=== PATIENT | female | born 1980 | race Caucasian/White ===

== ENCOUNTER 2022-07-19 07:59 | Outpatient (CLI) | payer BC, SELFPAY ==
--- NOTE | 2022-07-19 08:15 | CRLHL7_ITS ---
For Patients: As a result of the Cures Act, medical imaging exams and procedure reports are released immediately into your electronic medical record. You may view this report before your referring provider. If you have questions, please contact your health care provider. ULTRASOUND-GUIDED LEFT BREAST BIOPSY AND CLIP PLACEMENT INDICATION: LEFT breast mass upper outer quadrant near the axilla. Ultrasound-guided biopsy for diagnostic purposes. PROCEDURE: Informed consent was obtained. Benefits and risks were discussed. The patient agreed to proceed. Risks included pain, bleeding, infection and the possibility of an unsuccessful or nondiagnostic procedure. Clip placement was also discussed. Patient agreed to proceed. [place] protocol was followed. TIME-OUT conducted just prior to starting procedure confirmed patient identity, site/side, procedure, patient position, and availability of correct equipment. Pause for cause was performed. At the 2 o`clock position of the LEFT breast 8 cm from the nipple there is a lobulated hypoechoic solid mass measuring 1.6 x 1.8 x 2 cm. There is blood flow within this mass. Utilizing sterile technique and 1 percent lidocaine for local anesthetic, an 18-gauge Temno biopsy needle was utilized. Five passes were obtained. Each time the pass was clearly within the breast mass itself. Five samples were obtained and sent to the lab for analysis. A clip was subsequently placed. A post clip mammogram will be performed. IMPRESSION: Technically successful ultrasound-guided biopsy of an upper outer quadrant LEFT breast mass 2 o`clock position 8 cm from the nipple. ACR not applicable Dictated by: Raul Cabrera MD @07/19/2022 9:57:10 AM aristeo/Dictated by: Raul Cabrera MD @ 07/19/2022 9:57:00 AM ADDENDUM: Pathology consistent with grade III/III invasive ductal carcinoma, triple negative. This is concordant. Appropriate action recommended. Dictated by: Abel Quick MD @07/24/2022 9:22:04 AM / CRL:[email or web address] (Electronically Signed)
--- NOTE | 2022-07-19 09:00 | CRLHL7_ITS ---
For Patients: As a result of the Cures Act, medical imaging exams and procedure reports are released immediately into your electronic medical record. You may view this report before your referring provider. If you have questions, please contact your health care provider. POST-BIOPSY LEFT MAMMOGRAM FOR CLIP PLACEMENT INDICATION: Follow-up LEFT breast biopsy. Clip placement. TECHNIQUE: CC, MLO, and ML views of the LEFT breast were obtained. FINDINGS: The biopsy clip is identified within the superior lateral LEFT breast mass. Intact saline implant. IMPRESSION: Biopsy clip as described. ACR not applicable Dictated by: Raul Cabrera MD @07/19/2022 9:53:43 AM jj/Dictated by: Raul Cabrera MD @ 07/19/2022 9:53:00 AM (Electronically Signed)
== END 2022-07-19 08:00 | disposition home or self-care (01) ==
PROVIDERS: PCP Student in an Organized Health Care Education/Training Program; Visit Provider Student in an Organized Health Care Education/Training Program
DX: N63.21 Unspecified lump in the left breast, upper outer quadrant (principal); C50.912 Malignant neoplasm of unspecified site of left female breast
CPT/HCPCS: 19083; 77065; 88305; 88341; 88342; 88360; 88361; A4648; A4649

== ENCOUNTER 2022-07-27 09:48 | Outpatient (CLI) | payer BC, SELFPAY ==
--- NOTE | 2022-07-27 10:00 | CRLHL7_ITS ---
For Patients: As a result of the 21st Century Cures Act, medical imaging exams and procedure reports are released immediately into your electronic medical record. You may view this report before your referring provider. If you have questions, please contact your health care provider. BILATERAL BREAST MRI WITHOUT AND WITH GADOLINIUM, 07/27/2022 CLINICAL HISTORY: 41-year-old female with recently diagnosed LEFT breast cancer. INDICATION FOR BREAST MRI: Staging of newly diagnosed breast cancer and screening of contralateral breast. Regional lymph nodes will also be assessed. COMPARISON STUDIES: Mammogram and ultrasound 07/13/2022, ultrasound-guided biopsy and postprocedure mammogram 07/19/2022. CONTRAST: 15 cc of dotarem. TECHNIQUE: The patient was positioned prone using a breast coil. Multiple imaging sequences were obtained using 1-1.5 mm thick slices with no gap. The image sequences include T2-weighted STIR in the axial plane, T1-weighted nonfat-saturated gradient echo in the axial plane, pre- and post-contrast T1-weighted FLASH 3D with fat suppression in the axial plane, and T1-weighted FLASH high resolution 3D with fat suppression in the sagittal plane. Image post-processing was performed on a [employer] workstation. Complex 3D rendering including maximum intensity projections (MIPS) and volumetric renderings were obtained to optimize visualization of the extent of pathology and relationship to the nipple, skin, and chest wall. This aids in determining feasibility of breast conservation surgery. Subtraction, multiplanar reconstruction, mean curve determination, and angiogenesis mapping were also performed. The study was technically adequate. FINDINGS: Amount of Fibroglandular Tissue: Heterogeneous fibroglandular tissue. Breast Background Enhancement: Mild. RIGHT Breast: No suspicious areas of enhancement. Implant in place. LEFT Breast: At 2 o`clock, posterior depth, approximately 5 cm from the nipple there is an oval mass with circumscribed margins and heterogeneous internal enhancement measuring 2.6 x 2.3 x 2.2 cm. This demonstrates fast initial enhancement with washout. Implant in place. Lymph Nodes: Posterior to this mass within the axilla there are multiple abnormal rounded level 1 lymph nodes, the largest of which measures 1.2 x 1.0 cm. No RIGHT axillary adenopathy. No abnormal internal mammary lymph nodes. IMPRESSIONS AND RECOMMENDATIONS: LEFT breast: 1. Mass at 2 o`clock, posterior depth, measuring up to 2.6 cm on MRI is consistent with the site of biopsy-proven malignancy. 2. Abnormal LEFT axillary lymph nodes. Recommend LEFT axillary ultrasound and ultrasound-guided biopsy. RIGHT breast: Negative, there is no MRI evidence of contralateral malignancy. BI-RADS Category 4: Suspicious Dictated by Gabriella Finley MD @ 08/01/2022 8:32:13 AM JR/Dictated by: Gabriella Finley MD @ 08/01/2022 8:32:00 AM (Electronically Signed)
== END 2022-07-27 09:49 | disposition home or self-care (01) ==
PROVIDERS: PCP Student in an Organized Health Care Education/Training Program; Visit Provider Surgery
DX: C50.912 Malignant neoplasm of unspecified site of left female breast (principal)
CPT/HCPCS: 77049; A9575

== ENCOUNTER 2022-08-04 10:01 | Outpatient (CLI) | payer BC, SELFPAY ==
--- NOTE | 2022-08-04 10:15 | CRLHL7_ITS ---
For Patients: As a result of the Century Cures Act, medical imaging exams and procedure reports are released immediately into your electronic medical record. You may view this report before your referring provider. If you have questions, please contact your health care provider. CLINICAL HISTORY: : Left axillary adenopathy on recent breast MRI. History of left breast cancer. COMPARISON: Breast MRI 07/27/2022 TECHNIQUE: Real-time ultrasound imaging of left axilla with imaging documentation. Scanning was performed by both the technologist and the radiologist. FINDINGS: Enlarged left axillary lymph node is present with near complete absence of the fatty hilum. This lymph node measures 1.4 x 0.8 x 1.2 cm. This is located 1.1 cm from the primary malignancy. IMPRESSION: Suspicious left axillary lymph node measuring 1.4 cm. RECOMMENDATIONS: Ultrasound-guided core needle biopsy will be performed subsequently. Results and recommendations were discussed with the patient at the time of the exam. BI-RADS: 6. Known malignancy. Dictated by Abel Quick MD @ 08/04/2022 11:30:15 AM (Electronically Signed)
--- NOTE | 2022-08-04 11:15 | CRLHL7_ITS ---
For Patients: As a result of the Century Cures Act, medical imaging exams and procedure reports are released immediately into your electronic medical record. You may view this report before your referring provider. If you have questions, please contact your health care provider. ULTRASOUND-GUIDED LEFT AXILLARY LYMPH NODE BIOPSY CLINICAL HISTORY: ABNORMAL LEFT AXILLARY LYMPH NODE. BIOPSY PROVEN LEFT BREAST MALIGNANCY. COMPARISON STUDIES: Breast MRI 07/27/2022 TECHNIQUE: Real-time ultrasound with image documentation was used for targeting the left axillary lymph node lesion. Core biopsy specimens were obtained using an automated gun with a 18-gauge biopsy needle. CONSENT and TIME OUT: The procedure, risks, and alternatives were explained to the patient and a consent was signed. Mobile Protocol was followed including pre-procedure verification that relevant information/documentation was available, reviewed and properly matched to the patient; consent accurate and complete; and equipment and supplies available. Time Out was conducted just prior to starting procedure to verify the four required elements: patient identity, correct side/site marked (if applicable), procedure, relevant images/results properly labeled and displayed (if applicable). PROCEDURE: The patient was positioned supine on the ultrasound table. The left axilla was prepped with ChloraPrep. 8 cc 1 percent lidocaine used for local anesthesia. Core samples were obtained. A sterile metal biopsy clip was placed percutaneously to ruddy the lesion position within the left axilla. The specimens were placed in 10% formalin and sent to the pathology department. Pressure was held on the biopsy site until all bleeding subsided. The skin incision was closed with Steri-Strips. An ice pack was positioned over the biopsy site. Post-biopsy instructions were reviewed with the patient, and a written copy was given to her. LATERALITY: Left axilla LESION: Enlarged hypoechoic lymph node measuring 1.4 x 0.8 x 1.2 cm in the left axilla. SUSPICION FOR MALIGNANCY: High NUMBER OF SAMPLES: 6 BIOPSY CLIP SHAPE: HydroMARK coil PROXIMITY OF CLIP TO TARGET: Within the lesion IMPRESSION: Ultrasound-guided left axillary lymph biopsy. When the pathology report is available, an addendum to this report will be made. ACR not applicable Dictated by Abel Quick MD @ 08/04/2022 11:32:57 AM ADDENDUM: Pathology consistent with invasive ductal carcinoma, grade III/III, morphologically similar to the primary breast carcinoma previously biopsied. This is concordant. Appropriate action recommended. Abel Quick M.D. Diagnostic Radiologist [email or web address] D& Transcribed: 3:21 p.m. (Electronically Signed)
== END 2022-08-04 10:02 | disposition home or self-care (01) ==
LOC: US 10:02
PROVIDERS: PCP Student in an Organized Health Care Education/Training Program; Visit Provider Surgery
DX: C50.412 Malignant neoplasm of upper-outer quadrant of left female breast (principal); Z17.1 Estrogen receptor negative status [ER-]
CPT/HCPCS: 38505; 76882; 76942; 88305; A4648; A4649

== ENCOUNTER 2022-10-27 09:54 | Outpatient (CLI) | payer BC, SELFPAY | END 2022-10-27 09:55 | disposition home or self-care (01) | LOC: RAD 09:55 | PROVIDERS: PCP Student in an Organized Health Care Education/Training Program; Visit Provider Internal Medicine Hematology & Oncology | DX: Z51.11 Encounter for antineoplastic chemotherapy (principal) | CPT/HCPCS: 93306 ==

== ENCOUNTER 2023-01-01 16:03 | Outpatient (CLI) | payer BC, SELFPAY ==
--- NOTE | 2023-01-01 16:15 | CRLHL7_ITS ---
For Patients: As a result of the Century Cures Act, medical imaging exams and procedure reports are released immediately into your electronic medical record. You may view this report before your referring provider. If you have questions, please contact your health care provider. INDICATION: Breast cancer. Headaches. TECHNIQUE: Brain MRI with contrast. The following sequences were obtained: Sagittal T1 weighted sequence. DWI and ADC mapping sequences. Axial FLAIR and AMBAR T2 weighted sequences. Susceptibility weighted or GRE sequence. T1 weighted post-contrast sequence(s). 12.5 cc of Dotarem gadolinium based contrast agent was used. COMPARISON: None. FINDINGS: No evidence of acute ischemia. No evidence of acute or chronic intracranial blood products. No mass or pathologic intracranial enhancement. No intracranial signal abnormality. No hydrocephalus or extra-axial collections. The pituitary gland, parasellar structures and optic chiasm are normal. Posterior fossa is normal. All the major intracranial vascular structures demonstrate normal flow-related signal. The orbital contents are normal. No calvarial or skull base marrow signal abnormality. No obstructive sinus disease. No extracranial soft tissue findings. IMPRESSION: 1. No acute infarction or other acute intracranial pathology. 2. No evidence of intracranial metastatic disease. 3. No other significant findings. Dictated by Luigi Brennan MD @ 01/02/2023 10:59:27 AM (Electronically Signed)
== END 2023-01-01 16:04 | disposition home or self-care (01) ==
LOC: MRI 16:03
PROVIDERS: PCP Student in an Organized Health Care Education/Training Program; Visit Provider Internal Medicine Hematology & Oncology
DX: C50.912 Malignant neoplasm of unspecified site of left female breast (principal); R51.9 Headache, unspecified
CPT/HCPCS: 70553; A9575

== ENCOUNTER 2023-01-14 11:17 | Inpatient (IN) | payer BC, SELFPAY ==
[2023-01-14] VITALS (17 sets, daily range): BP systolic 81–101; BP diastolic 39–70; PULSE 71–88; RESP 14–18; TEMP 36.1–37.2; O2SAT 94–100; BMI 21.5
--- NOTE | 2023-01-14 11:43 | CRLHL7_ITS ---
For Patients: As a result of the Century Cures Act, medical imaging exams and procedure reports are released immediately into your electronic medical record. You may view this report before your referring provider. If you have questions, please contact your health care provider. Indication: Neutropenic fever. Breast cancer patient on chemotherapy Technique: PA and lateral (2) views of the chest. Comparison: None available Findings: Right chest port in place with tip in SVC. Normal heart size. Lungs and pleural spaces clear. No acute or aggressive osseous abnormality. Impression: Normal chest radiograph. Dictated by Cooper Hardin MD @ 01/14/2023 1:05:13 PM (Electronically Signed)
--- NOTE | 2023-01-14 11:44 | ED.GENADULT ---
HPI - General Adult General Chief complaint: Fever Stated complaint: chemo patient, fever Time Seen by Provider: 01/14/23 11:31 Source: patient Mode of arrival: ambulatory Limitations: no limitations History of Present Illness HPI narrative: 42-year-old cancer with history of breast cancer presents to the emergency department with 4 days of malaise and now fever. Has not been previously known to be neutropenic. Fever was 100.5 this morning. Symptoms initially started with fatigue then progressing to myalgias, low-grade headache, chills and body aches. No other localizing symptoms of infection such as dysuria, sore throat, gastroenteritis or skin changes like cellulitis. She has some low-grade nausea but has not been vomiting, this is an ongoing issue for her. She continues to take oral nutrition without significant difficulty. Her last oncology visit was 12/27/2022, notes reviewed. No recent changes in her chemotherapy regimen. Her last chemotherapy was given 6 days ago. She does have a history of mucositis secondary to her chemotherapy but no other significant complications. She does not take any blood thinners. She does have a port in her right chest. No history of DVT or PE. No cough or dyspnea. Did take some ibuprofen prior to leaving the house which helped with her fever and headache. Past medical history mainly notable for breast cancer, triple negative. No other long-term health problems. Her home medications primarily consist of a control pill and symptom control medications for her nausea p.r.n.. She is a nonsmoker, no pertinent travel. History of mastectomy. ROS is notable for the generalized symptoms as described above, otherwise denies times 12 systems. Related Data Home Medications Medication Instructions Recorded Confirmed [id number]-[id number] 250 2 tab PO Q6H PRN 07/31/22 12/27/22 mg-250 mg-65 mg tablet (Excedrin Extra Strength) ibuprofen 600 mg tablet 600 mg PO Q8H PRN 07/31/22 12/27/22 norgestrel 0.3 mg-ethinyl 1 tab PO DAILY 07/31/22 12/27/22 estradiol 30 mcg tablet (Low-Ogestrel (28)) acetaminophen 500 mg tablet 1,000 mg PO Q6H PRN 10/05/22 12/27/22 (Tylenol Extra Strength) diphenhydramine 25 2 tab PO QHS PRN 10/05/22 12/27/22 mg-acetaminophen 500 mg tablet (Tylenol PM Extra Strength) Previous Rx's Medication Instructions Recorded ondansetron 4 mg disintegrating 4 mg PO Q8H PRN nausea and 11/16/22 tablet vomiting #60 tabs prochlorperazine maleate 5 mg 5 mg PO Q8-12H PRN nausea and 11/16/22 tablet (Compazine) vomiting #60 tabs Magic Mouthwash 5 ml PO TID-QID #120 mL 12/27/22 (Lidocaine/Benadryl/Maalox) 120 mL suspension olanzapine 2.5 mg tablet 2.5 mg PO QHS #30 tabs 12/27/22 Allergies Allergy/AdvReac Type Severity Reaction Status Date / Time No Known Drug Allergies Allergy Verified 01/08/23 08:57 PFSH PFSH Medical History Anxiety ?F41.9 - Anxiety disorder, unspecified (ICD-10) Surgical History H/O wisdom tooth extraction (~2004) ?K08.409 - Partial loss of teeth, unspecified cause, unspecified class (ICD-10) History of breast augmentation (~2017) ?Z98.82 - Breast implant status (ICD-10) Hx of LASIK (~2015) ?Z98.890 - Other specified postprocedural states (ICD-10) Hx of tonsillectomy (~1988) ?Z90.89 - Acquired absence of other organs (ICD-10) Family History Maternal Grandmother Colon cancer Paternal Grandmother Colon cancer Social History Smoking Status: Never smoker Do you use any of these nicotine containing products: None Second hand tobacco smoke exposure: No How often do you have a drink containing alcohol: 2-3 times a week Alcohol type: beer and wine How many standard drinks containing alcohol do you have on a typical day: 1 or 2 How often do you have six or more drinks on one occasion: Never AUDIT-C Alcohol total score: 3 Non-prescribed substance use: denies use Caffeine: Yes (1 cup coffee/day, soda 1 can qod) Are you using contraception or practicing any form of control: Yes Exam Const: Vital Signs, click to edit/add: Vital Signs - 24 hr 01/14/23 11:27 Temperature 97.0 F L Pulse Rate [Right Pulse Oximeter] 85 Respiratory Rate 18 Blood Pressure [Ri ght Upper Arm] 99/70 Pulse Oximetry 94 Oxygen Delivery Me thod Room Air Documenting provider has reviewed patient's vital signs: yes Common normals: no apparent distress and alert General appearance: cooperative, comfortable and well kempt Orientation/consciousness: Yes awake HENMT: Common normals: normocephalic Head and scalp: normocephalic Face and sinus: normal facial exam Throat: posterior oropharynx normal Other: Couple of minor irritation spots along the roof of the mouth, they look less like viral aphthous ulcers in more like mild mucositis. There is not any severe inflammation or white patches consistent with overwhelming thrush. Eye: Common normals: conjunctivae normal General eye: normal appearance of both eyes Conjunctiva: conjunctiva(e) normal Neck & C-Spine: Common normals: full ROM, no lymphadenopathy and no meningeal signs Resp: Common normals: normal respiratory effort, no use of accessory muscles and clear to auscultation bilaterally Effort & inspection: able to speak in complete sentences Auscultation: clear to auscultation bilaterally Cardio: Common normals: regular rate, regular rhythm, S1 normal heart sound, S2 normal heart sound and no murmurs Rate: regular rate Rhythm: regular rhythm Heart sounds: S1 normal and S2 normal GI: Common normals: Normal to inspection, nondistended, normoactive bowel sounds present, soft to palpation, non-tender, no hepatosplenomegaly and no masses Palpation: soft and no hepatosplenomegaly : Common normals: no CVA tenderness Bladder/kidney exam: no CVA tenderness Back & Pelvis: Common normals: no CVA tenderness Extremity: Common normals: normal to inspection, normal capillary refill and no pedal edema Neuro: Sensorium/orientation: awake and alert Meningeal signs: no meningeal signs Motor exam: strength 5/5 throughout and no movement abnormalities noted Psych: Common normals: speech normal Appearance: well kempt Attitude: calm and engaged Speech: normal speech Insight: insight good Judgement: judgment good Skin: Common normals: no rashes or lesions noted General skin exam: no rashes or lesions noted Course Course ED Course: Cancer patient with fever, uncertain etiology. Not previously known to be neutropenic but will need investigation. Blood cultures will be drawn from port and peripherally, chest x-ray, urinalysis, typical basic labs. Viral studies. Await findings. 1 L normal saline in the interim. Reevaluation(s) Time of Reevaluation #1: 13:46 Reevaluation #1: Discussed findings with patient. She is neutropenic, absolute neutrophil count is under 1. Unknown source of infection. Blood cultures have been appropriately drawn. Still awaiting viral studies and urinalysis. Blood pressures are still soft but not terribly uncharacteristic for her. Lactate is normal, I do not think she is septic. I will bolus a 2 L of normal saline. Have spoken with the day hospitalist, he accepts admission. We discussed antibiotics and he will choose these. Patient is agreeable to admission, circumstances explained. Vital Signs Vital signs: Initial Vital Signs Temperature Source Temporal Artery Scan 01/14/23 11:20 Sepsis Recent Fever Within 48 Hours No 01/14/23 11:20 Sepsis New/Unexplained Change in Mental Status No 01/14/23 11:20 Sepsis Action Taken by Nursing No Action Required 01/14/23 11:20 Vital Signs Temperature 97.0 F L 01/14/23 11:27 Pulse Rate 85 01/14/23 11:27 Respiratory Rate 18 01/14/23 11:27 Blood Pressure 99/70 01/14/23 11:27 Pulse Oximetry 94 01/14/23 11:27 Oxygen Delivery Method Room Air 01/14/23 11:27 Temperature 97.0 F L 01/14/23 11:27 Pulse Rate 85 01/14/23 11:27 Respiratory Rate 18 01/14/23 11:27 Blood Pressure 99/70 01/14/23 11:27 Pulse Oximetry 94 01/14/23 11:27 Oxygen Delivery Method Room Air 01/14/23 11:27 Medical Decision Making Lab Data Labs: Lab Results 01/14/23 Range/Units Unknown WBC 2.18 L (4.50-11.00) K/uL RBC 3.31 L (4.00-5.20) m/uL Hgb 10.7 L (12.0-16.0) gm/dL Hct 31.4 L (33.0-51.0) % MCV 95 (80-100) fL MCH 32 (26-34) pg MCHC 34 (32-36) gm/dL RDW Coeff of Medardo 11.4 L (11.5-15.5) % Plt Count 116 L (140-440) K/uL Neut % (Auto) 34.4 L (42.0-72.0) % Lymph % (Auto) 39.0 (20-44) % [place] % (Auto) 13.3 H (0.0-11.0) % Eos % (Auto) 11.0 H (0.0-7.0) % Baso % (Auto) 0.9 (0.0-3.0) % Neut # (Auto) 0.70 L (1.7-7.0) K/uL Lymph # (Auto) 0.90 (0.90-2.90) K/uL [place] # (Auto) 0.30 (0.00-0.90) K/UL Eos # (Auto) 0.20 (0.00-0.50) K/uL Baso # (Auto) 0.00 (0.00-0.30) K/uL Abs Immat Gran (auto) 0.00 (0.00-0.30) K/uL Imm/Tot Granulo (auto) 1.4 % Diff Slide Review Acceptable Review (Acceptable) Sodium 134 L (135-149) mmol/L Potassium 4.0 (3.6-5.1) mmol/L Chloride 102 (96-114) mmol/L Carbon Dioxide 22 (20-32) mmol/L Anion Gap 10 (7-15) mEq/L BUN 15 (5-24) mg/dL Creatinine 0.7 (0.5-1.5) mg/dL Estimated GFR 112 ml/min Glucose 84 (60-115) mg/dL Lactate 1.1 (0.5-1.9) mmol/L Calcium 8.9 (8.4-10.6) mg/dL Total Bilirubin 0.6 (0.1-1.5) mg/dL AST 30 (12-35) U/L ALT 17 (4-35) U/L Alkaline Phosphatase 67 (40-150) U/L C-Reactive Protein 6.2 H (0.5-1.0) mg/dL Total Protein 7.2 (6.0-8.3) g/dL Albumin 4.2 (3.3-5.0) g/dL Discharge Plan Discharge Clinical Impression: Neutropenia with fever Patient Disposition: Admitted As Inpatient
[2023-01-14 12:37] LABS: Basophils Percent Auto 0.9 % (0.0-3.0); Hematocrit 31.4 % (33.0-51.0); Hemoglobin* 10.7 gm/dL (12.0-16.0); Immature Granulocytes Pct Auto 1.4 %; Mean Corpuscular HGB Conc 34 gm/dL (32-36); Mean Corpuscular Hemoglobin 32 pg (26-34); Mean Corpuscular Volume 95 fL (80-100); Monocytes Percent Auto 13.3 % (0.0-11.0); Neutrophils Percent Auto 34.4 % (42.0-72.0); Platelet Count* 116 K/uL (140-440); RDW Coefficient of Variation % 11.4 % (11.5-15.5); Red Blood Count 3.31 m/uL (4.00-5.20); White Blood Count* 2.18 K/uL (4.50-11.00)
[2023-01-14] MEDS: ONDANSETRON 2 MG/ML inj 4 MG IVP (12:42)
[2023-01-14] MEDS: 0.9 % SODIUM CHLORIDE 1000 ml 1,000 ML IV ×2 (12:42→13:48)
[2023-01-14 12:43] LABS: Lactate* 1.1 mmol/L (0.5-1.9)
[2023-01-14 13:11] LABS: Albumin* 4.2 g/dL (3.3-5.0); Chloride* 102 mmol/L (96-114); Sodium* 134 mmol/L (135-149)
[2023-01-14 13:13] LABS: Creatinine* 0.7 mg/dL (0.5-1.5); Estimated Glomerular Filt Rate 112 ml/min
[2023-01-14 13:14] LABS: Alanine Aminotransferase* 17 U/L (4-35); Alkaline Phosphatase* 67 U/L (40-150); Anion Gap 10 mEq/L (7-15); Aspartate Amino Transferase* 30 U/L (12-35); Bilirubin Total* 0.6 mg/dL (0.1-1.5); Blood Urea Nitrogen* 15 mg/dL (5-24); Carbon Dioxide* 22 mmol/L (20-32); Glucose* 84 mg/dL (60-115); Total Protein* 7.2 g/dL (6.0-8.3)
[2023-01-14 13:15] LABS: Calcium* 8.9 mg/dL (8.4-10.6)
[2023-01-14 13:17] LABS: C Reactive Protein* 6.2 mg/dL (0.5-1.0)
[2023-01-14 13:28] LABS: Slide Review Reflex Yes
[2023-01-14 13:29] LABS: Slide Review Acceptable Review (Acceptable)
[2023-01-14 13:45] LABS: PCR FLU A Negative PCR FLU A (Negative); PCR FLU B Negative PCR FLU B (Negative); PCR RSV Negative PCR RSV (Negative)
[2023-01-14 13:58] LABS: SARS PCR* Negative SARS-CoV-2 (Negative)
--- NOTE | 2023-01-14 14:39 | ED.NURSE ---
Unable to obtain UA. 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 Waiting for anitbiotic from pharmacy. Per pharmacy, still mixing medication and will bring to trucking manager once mixed.
[2023-01-14 14:56] LABS: Appearance Urine Clear (Clear); Bilirubin Urine Negative (Negative); Blood Urine Trace-lysed (Negative); Color Urine Yellow (Yellow); Glucose Urine Negative (Negative); Ketones Urine Negative (Negative); Leukocyte Esterase Urine Negative (Negative); Nitrite Urine Negative (Negative); Protein Urine Negative (Negative); Specific Gravity Urine >= 1.030 (1.000-1.030); Urobilinogen Urine 0.2 (0.2-1.0); pH Urine 5.5 (5.0-8.5)
[2023-01-14 15:00] LABS: Ur HCG Qualitative* Negative (Negative)
[2023-01-14] MEDS: CEFEPIME HCL 2 GM in 0.9 % SODIUM CHLORIDE Mini-bag 100 ML IVPB ×2 (15:27→23:07)
[2023-01-14 15:44] LABS: Bacteria Urine Few; Mucus Urine Moderate; Squamous Epithelial Cell Urine Moderate (None-Few)
--- NOTE | 2023-01-14 15:52 | PM.IMHP1 ---
Hospitalist- H&P: HPI History of Present Illness Date Seen: 01/14/23 Chief complaint: chemo patient, fever Narrative: Kierra Colon is a 42 year old female who presented to the emergency room today for a 4 day history of general malaise and achiness, in addition to 2 days of fever. She is a breast cancer patient (diagnosed July 2022), received last course of chemotherapy on Sunday, 01/08. She felt moderately run down for 2 days after this, which is typical, but on (as she was travelling to her parent's house in [place] for [place]), she started having diffuse generalized achiness and fatigue. Yesterday, had a temperature of 100.5?. Today had a temperature of 100.4?. She has had upper respiratory congestion as well and an intermittent dry cough. She has not had UTI symptoms or GI symptoms. Patient has had no sick contacts. Besides recent road trip to [place], she flew to [place] 2 weeks ago without incident. No recent dental visits. ER Course and Findings: - BP 80s/40s (baseline BP 90-100s), received 2L of IVFs with improvement - negative COVID/Flu/RSV - reassuring CXR and UA - WBC 2.18 with ANC of .7 (no history of neutropenia), platelets 116, Hgb 10.7 - CRP 6.2 - Lactate 1.1 Upon arrival to the floor, patient feels moderately better. Systolic blood pressure now > 100. Histories updated below. PCP is Ignacia Madsen at the [facility]. She sees the Oncology team and [facility] for her breast cancer management. Review of Systems Status of ROS: Reports: 10 or more systems reviewed and unremarkable except as noted in History and below Narrative: - no UTI symptoms - no skin lesions currently (had a facial rash after chemo last week, resolved after Benadryl) - no GI symptoms PFSH PFSH Medical History Anxiety ?F41.9 - Anxiety disorder, unspecified (ICD-10) Surgical History H/O wisdom tooth extraction (~2004) ?K08.409 - Partial loss of teeth, unspecified cause, unspecified class (ICD-10) History of breast augmentation (~2017) ?Z98.82 - Breast implant status (ICD-10) Hx of LASIK (~2015) ?Z98.890 - Other specified postprocedural states (ICD-10) Hx of tonsillectomy (~1988) ?Z90.89 - Acquired absence of other organs (ICD-10) Family History Maternal Grandmother Colon cancer Paternal Grandmother Colon cancer Social History (Updated 01/14/23 @ 16:42 by Charley Murry MD) Narrative: Kierra lives in [place] with her 9yo daughter Shaquille. Ex- lives in [place]. 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 Mother Mallory would be medical decision maker if needed. Nonsmoker, no ETOH use while on chemo (previously 1-2x/week socially). Full Code status. What is your current living situation?: I presently have a place to live Problems where you live: other Problems where you live details: None In the past 12 months, utilities in danger of being shut off: no In past 12 months, lack of transportation kept you from medical appts, meetings, work, or getting things needed for daily living: no In the past 12 mos, have been you worried that your food would run out before you had money to buy more?: never true In the past 12 mos, the food you bought just didn't last and you didn't have money to buy more?: never true Highest level of school completed/degree received: Bachelor's degree Smoking Status: Never smoker Do you use any of these nicotine containing products: None Second hand tobacco smoke exposure: No How often do you have a drink containing alcohol: never How many standard drinks containing alcohol do you have on a typical day: 1 or 2 How often do you have six or more drinks on one occasion: Never AUDIT-C Alcohol total score: 0 Non-prescribed substance use: denies use Caffeine: Yes (1 pop every 2 days) How often does anyone, including family, friends and others, physically hurt you: never How often does anyone, including family, friends and others, insult or talk down to you: never How often does anyone, including family, friends and others, threaten you with harm: never How often does anyone, including family, friends and others, scream or curse at you: never Are you using contraception or practicing any form of control: Yes service: No Meds Home Medications and Allergies Home Medications Medication Instructions Recorded Confirmed Type ivomytp-rjhzivjodsjvp-zsgxeoum 250 2 tab PO Q6H PRN 07/31/22 01/14/23 History mg-250 mg-65 mg tablet (Excedrin Extra Strength) ibuprofen 600 mg tablet 600 mg PO Q8H PRN 07/31/22 01/14/23 History norgestrel 0.3 mg-ethinyl 1 tab PO DAILY 07/31/22 01/14/23 History estradiol 30 mcg tablet (Low-Ogestrel (28)) acetaminophen 500 mg tablet 1,000 mg PO Q6H PRN 10/05/22 01/14/23 History (Tylenol Extra Strength) diphenhydramine 25 2 tab PO QHS PRN 10/05/22 01/14/23 History mg-acetaminophen 500 mg tablet (Tylenol PM Extra Strength) Allergies Allergy/AdvReac Type Severity Reaction Status Date / Time No Known Drug Allergies Allergy Verified 01/08/23 08:57 Exam Narrative: Exam Narrative: GEN: Alert and oriented, nontoxic HEENT: EOMIs bilaterally, no scleral icterus CV: RRR, No concerning murmurs R: LCTA bilaterally without concerning wheezing, air movement adequate Ext: wwp, no concerning edema Skin: No concerning skin lesions or rashes Neuro: Nonfocal Psych: Appropriate Const: Vital Signs, click to edit/add: Vital Signs - 24 hr 01/14/23 11:27 01/14/23 12:50 01/14/23 13:00 Temperature 97.0 F L Pulse Rate 88 88 Pulse Rate [Pulse Oximeter] Pulse Rate [Right Pulse Oximeter] 85 Respiratory Rate 18 Blood Pressure Blood Pressure [Ri ght Arm] Blood Pressure [Ri ght Upper Arm] 99/70 Pulse Oximetry 94 95 100 Oxygen Delivery Me thod Room Air Room Air 01/14/23 13:02 01/14/23 13:06 01/14/23 13:15 Temperature Pulse Rate 78 84 77 Pulse Rate [Pulse Oximeter] Pulse Rate [Right Pulse Oximeter] Respiratory Rate Blood Pressure 82/48 L 91/45 L Blood Pressure [Ri ght Arm] Blood Pressure [Ri ght Upper Arm] Pulse Oximetry 99 100 100 Oxygen Delivery Me thod 01/14/23 13:30 01/14/23 13:31 01/14/23 13:38 Temperature Pulse Rate 82 80 81 Pulse Rate [Pulse Oximeter] Pulse Rate [Right Pulse Oximeter] Respiratory Rate Blood Pressure 81/46 L 95/46 L Blood Pressure [Ri ght Arm] Blood Pressure [Ri ght Upper Arm] Pulse Oximetry 100 100 100 Oxygen Delivery Dc thod 01/14/23 13:45 01/14/23 14:00 01/14/23 14:02 Temperature Pulse Rate 81 81 77 Pulse Rate [Pulse Oximeter] Pulse Rate [Right Pulse Oximeter] Respiratory Rate Blood Pressure 97/39 L Blood Pressure [Ri ght Arm] Blood Pressure [Ri ght Upper Arm] Pulse Oximetry 100 98 [facility] 01/14/23 14:15 01/14/23 14:48 01/14/23 15:11 Temperature 98.9 F 98.4 F Pulse Rate 78 Pulse Rate [Pulse Oximeter] 80 Pulse Rate [Right Pulse Oximeter] Respiratory Rate 14 14 Blood Pressure Blood Pressure [Ri ght Arm] 100/54 L Blood Pressure [Ri ght Upper Arm] Pulse Oximetry 100 100 100 [facility] Room Air 01/14/23 15:11 Temperature Pulse Rate Pulse Rate [Pulse Oximeter] Pulse Rate [Right Pulse Oximeter] Respiratory Rate 14 Blood Pressure Blood Pressure [Ri ght Arm] Blood Pressure [Ri ght Upper Arm] Pulse Oximetry [facility]xygen Delivery [facility] Hospital[facility] - H&P: Result Labs Labs: Short CBC 01/14/23 Range/Units Unknown WBC 2.18 L (4.50-11.00) K/uL Hgb 10.7 L (12.0-16.0) gm/dL Hct 31.4 L (33.0-51.0) % Plt Count 116 L (140-440) K/uL BMP 01/14/23 Unknown Sodium 134 L Potassium 4.0 Chloride 102 Carbon Dioxide 22 BUN 15 Creatinine 0.7 Glucose 84 Calcium 8.9 Liver Function 01/14/23 Range/Units Unknown Total Bilirubin 0.6 (0.1-1.5) mg/dL AST 30 (12-35) U/L ALT 17 (4-35) U/L Alkaline Phosphatase 67 (40-150) U/L Albumin 4.2 (3.3-5.0) g/dL Urine 01/14/23 Range/Units 14:47 Urine Color Yellow (Yellow) Urine Appearance Clear (Clear) Urine pH 5.5 (5.0-8.5) Ur Specific [place] >= 1.030 (1.000-1.030) Urine Protein Negative (Negative) Urine Glucose (UA) Negative (Negative) Assessment and Plan Assessment and plan (1) Neutropenia with fever: Problem comment: - cultures obtained, admit and initiate empiric Cefepime - further imaging or repeat cultures with any change in condition, recurrent fever Status: Acute (2) Breast cancer, left: Problem comment: - left-sided T2N1/0 M0 grade 3 triple negative BRCA negative - follows with Oncology at [facility] - last Chemo 01/08 Status: Acute Plan - per above
[2023-01-14] MEDS: 0.9 % SODIUM CHLORIDE 1000 ml 1,000 ML 125 ML IV (18:49)
[2023-01-14] MEDS: ACETAMINOPHEN 325 MG TABLET 975 MG PO (18:50)
--- NOTE | 2023-01-14 19:37 | PC.NURSE ---
End of Shift: Patient pleasant and cooperative. Patient with soft BP's but vitally stable, lungs clear, BS WNL, IV running NS at 125 via right chest port. Patient given tylenol for headache otherwise no pain. Patient independent in room. Patient urinating and with small appetite but tolerating regular diet.
[2023-01-14] MEDS: LORazepam 0.5 MG TABLET PO (22:08)
[2023-01-15 03:00] VITALS: BP 101/82; PULSE 81; RESP 16; TEMP 36.8; O2SAT 98
[2023-01-15] MEDS: 0.9 % SODIUM CHLORIDE 1000 ml 1,000 ML 125 ML IV ×3 (03:10→19:34)
[2023-01-15 06:35] LABS: Basophils Percent Auto 1.8 % (0.0-3.0); Eosinophils Percent Auto 17.4 % (0.0-7.0); Hematocrit 26.7 % (33.0-51.0); Hemoglobin* 9.2 gm/dL (12.0-16.0); Immature Granulocytes Pct Auto 0.6 %; Lymphocytes Percent Auto 49.7 % (20-44); Mean Corpuscular HGB Conc 35 gm/dL (32-36); Mean Corpuscular Hemoglobin 33 pg (26-34); Mean Corpuscular Volume 95 fL (80-100); Monocytes Percent Auto 7.8 % (0.0-11.0); Neutrophils Percent Auto 22.7 % (42.0-72.0); Platelet Count* 87 K/uL (140-440); RDW Coefficient of Variation % 11.2 % (11.5-15.5); Red Blood Count 2.82 m/uL (4.00-5.20)
[2023-01-15 06:45] LABS: Lactate* < 0.4 mmol/L (0.5-1.9)
[2023-01-15 06:48] LABS: Slide Review Reflex Yes; White Blood Count* 1.67 K/uL (4.50-11.00)
[2023-01-15 07:00] LABS: Albumin* 3.1 g/dL (3.3-5.0); Chloride* 108 mmol/L (96-114); Potassium* 4.3 mmol/L (3.6-5.1); Sodium* 134 mmol/L (135-149)
[2023-01-15 07:03] LABS: Alanine Aminotransferase* 13 U/L (4-35); Alkaline Phosphatase* 52 U/L (40-150); Anion Gap 4 mEq/L (7-15); Aspartate Amino Transferase* 20 U/L (12-35); Bilirubin Total* 0.6 mg/dL (0.1-1.5); Blood Urea Nitrogen* 9 mg/dL (5-24); Carbon Dioxide* 22 mmol/L (20-32); Creatinine* 0.7 mg/dL (0.5-1.5); Est. Creatinine Clearance* 111.26; Estimated Glomerular Filt Rate 112 ml/min; Glucose* 78 mg/dL (60-115); Total Protein* 5.8 g/dL (6.0-8.3)
--- NOTE | 2023-01-15 07:32 | PC.NURSE ---
: pleasant and cooperative. indep in rm. c/o occasional chills. afebrile. VSS. Ativan given at HS as a sleep aid, pt stated she was able to finally get some rest.
[2023-01-15 07:44] LABS: Slide Review Acceptable Review (Acceptable)
[2023-01-15 08:00] VITALS: BP 97/64; PULSE 83; RESP 16; TEMP 36.7; O2SAT 96
[2023-01-15] MEDS: CEFEPIME HCL 2 GM in 0.9 % SODIUM CHLORIDE Mini-bag 100 ML IVPB ×2 (09:05→16:09)
[2023-01-15] MEDS: ONDANSETRON 2 MG/ML inj 4 MG IVP ×2 (09:19→17:29)
[2023-01-15 11:00] VITALS: BP 104/58; PULSE 76; RESP 16; TEMP 36.8; O2SAT 99
[2023-01-15 11:05] VITALS: BMI 21.4
[2023-01-15] MEDS: IBUPROFEN 600 MG TABLET PO ×2 (11:19→20:00)
[2023-01-15 15:30] VITALS: BP 104/73; PULSE 83; RESP 16; TEMP 36.8; O2SAT 97
--- NOTE | 2023-01-15 16:05 | P.IMPN_ITS ---
Progress Note: A&P Assessment and plan (1) Neutropenia with fever: Problem details: - cultures obtained, admit and initiate empiric Cefepime - further imaging or repeat cultures with any change in condition, recurrent fever - Absolute neutrophil count of 400 on 01/15/2023 Status: Acute (2) Breast cancer, left: Problem details: - left-sided T2N1/0 M0 grade 3 triple negative BRCA negative - follows with Oncology at [facility] - last Chemo 01/08 Status: Acute (3) Chemotherapy adverse reaction: Problem details: - neutropenic fever Status: Acute Plan 1. Continue with plan of care specified above 2. Answered patient's questions Time Spent With Patient Total time spent: 35 minutes Subjective Time Seen by Provider: 09:00 Date Seen: 01/15/23 Interval history: Hospital day 2. Myalgias, arthralgias, cephalgia much improved compared to yesterday. No longer spiking fevers. Baseline gingival discomfort since she started chemotherapy. Appetite is fair. Exam Narrative: Exam Narrative: Examined patient in her hospital room. Vision and hearing are totally normal. Alert, oriented to self, place, time, situation. Friendly, articulate, cooperative. Tympanic membranes external auditory canals are normal. Midline nasal septum. Normal nasal mucosa. Dentition in fair repair. No gingival or oropharyngeal lesions noted. No head and neck lymphadenopathy. Neck is supple. Lungs are clear to auscultation without wheezing, rhonchi, or rales. Heart tones with regular rhythm, normal S1-S2, without murmur, gallop, rub. Abdomen with active bowel sounds, soft, nontender. Extremities without edema. Independent transfer, station, and gait. No focal motor neurologic deficits. Skin is warm, dry, intact. No petechiae, ecchymosis, cyanosis, or rashes. Const: Vital Signs, click to edit/add: Vital Signs - 24 hr 01/14/23 20:57 01/14/23 23:00 01/14/23 23:00 Temperature 98.1 F 98.2 F Pulse Rate [Pulse Oximeter] 71 72 Respiratory Rate 14 16 Blood Pressure [Ri ght Arm] 101/43 L 93/44 L Pulse Oximetry 98 97 97 Oxygen Delivery Me thod Room Air Room Air Room Air 01/14/23 23:00 01/15/23 03:00 01/15/23 08:00 Temperature 98.3 F Pulse Rate [Pulse Oximeter] 72 81 83 Respiratory Rate 16 16 16 Blood Pressure [Ri ght Arm] 101/82 Pulse Oximetry 98 Oxygen Delivery Me thod Room Air 01/15/23 08:00 01/15/23 08:00 01/15/23 11:00 Temperature 98.1 F 98.3 F Pulse Rate [Pulse Oximeter] 83 76 Respiratory Rate 16 16 16 Blood Pressure [Ri ght Arm] 97/64 104/58 L Pulse Oximetry 96 96 99 Oxygen Delivery Me thod Room Air Room Air Room Air Documenting provider has reviewed patient's vital signs: yes Labs Labs: Laboratory Results - last 24 hr 01/15/23 05:45 WBC 1.67 L* RBC 2.82 L Hgb 9.2 L Hct 26.7 L MCV 95 MCH 33 MCHC 35 RDW Coeff of Medardo 11.2 L Plt Count 87 L Neut % (Auto) 22.7 L Lymph % (Auto) 49.7 H [place] % (Auto) 7.8 Eos % (Auto) 17.4 H Baso % (Auto) 1.8 Neut # (Auto) 0.40 L Lymph # (Auto) 0.80 L [place] # (Auto) 0.10 Eos # (Auto) 0.30 Baso # (Auto) 0.00 Abs Immat Gran (auto) 0.00 Imm/Tot Granulo (auto) 0.6 Diff Slide Review Acceptable Review Sodium 134 L Potassium 4.3 Chloride 108 Carbon Dioxide 22 Anion Gap 4 L BUN 9 Creatinine 0.7 Estimated Creat Clear 111.26 Estimated GFR 112 Glucose 78 Lactate < 0.4 L Calcium 8.0 L Total Bilirubin 0.6 AST 20 ALT 13 Alkaline Phosphatase 52 C-Reactive Protein 6.0 H Total Protein 5.8 L Albumin 3.1 L
[2023-01-15] MEDS: ACETAMINOPHEN 325 MG TABLET 975 MG PO ×2 (16:18→22:03)
[2023-01-15] MEDS: DIPHEN/LIDO/ALUM/MAG/SIMETH 5 ML SUSPENSION MUCOUS MEM (17:30)
[2023-01-15] MEDS: PROCHLORPERAZINE 10 MG TABLET 5 MG PO (18:43)
[2023-01-15 19:30] VITALS: BP 105/60; PULSE 72; RESP 16; TEMP 36.7; O2SAT 99
--- NOTE | 2023-01-15 19:37 | PC.NURSE ---
AFEBRILE. INTERMITTENT NAUSEA IMPROVED WITH ZOFRAN, PROCHLORPERAZINE AND AROMATHERAPY PATCH. TOLERATING SMALL AMOUNTS OF REGULAR DIET. C/O HEADACHE THAT IMPROVED MILDLY WITH IBUPROFEN AND TYLENOL.
[2023-01-15] MEDS: ENOXAPARIN 40 MG/0.4 ML INJ SUBCUT (19:59)
[2023-01-15] MEDS: LORazepam 0.5 MG TABLET PO (22:03)
[2023-01-15] MEDS: SENNOSIDES/DOCUSATE TABLET 1 TAB PO (22:03)
[2023-01-15 23:00] VITALS: BP 103/74; PULSE 69; RESP 16; TEMP 36.5; O2SAT 98
[2023-01-16] MEDS: CEFEPIME HCL 2 GM in 0.9 % SODIUM CHLORIDE Mini-bag 100 ML IVPB ×2 (00:05→08:08)
[2023-01-16 03:00] VITALS: BP 85/48; PULSE 61; RESP 16; TEMP 36.1; O2SAT 97
[2023-01-16] MEDS: 0.9 % SODIUM CHLORIDE 1000 ml 1,000 ML 125 ML IV ×3 (03:24→21:17)
--- NOTE | 2023-01-16 05:51 | PC.NURSE ---
End of Shift: Pt pleasant and cooperative throughout shift. BP's remained soft, pt denied sx. Afebrile. Boyfriend at bedside, port remained patent, tolerating infusions well. Pt remains independent in room. Continent with bladder, no BM during shift.
[2023-01-16 08:00] VITALS: BP 103/66; PULSE 75; RESP 16; TEMP 36.9; O2SAT 98
[2023-01-16 10:38] LABS: Sodium* 134 mmol/L (135-149)
[2023-01-16 11:00] VITALS: BP 98/61; PULSE 75; RESP 16; TEMP 37; O2SAT 100
[2023-01-16] MEDS: ONDANSETRON 2 MG/ML inj 4 MG IVP (11:07)
[2023-01-16 12:11] LABS: Eosinophils Percent Auto 17.6 % (0.0-7.0); Hematocrit 25.8 % (33.0-51.0); Hemoglobin* 8.8 gm/dL (12.0-16.0); Mean Corpuscular HGB Conc 34 gm/dL (32-36); Mean Corpuscular Hemoglobin 32 pg (26-34); Mean Corpuscular Volume 95 fL (80-100); Monocytes Percent Auto 15.7 % (0.0-11.0); Neutrophils Percent Auto 15.7 % (42.0-72.0); Platelet Count* 73 K/uL (140-440); RDW Coefficient of Variation % 11.1 % (11.5-15.5); Red Blood Count 2.73 m/uL (4.00-5.20)
[2023-01-16 12:14] LABS: White Blood Count* 1.53 K/uL (4.50-11.00)
[2023-01-16 12:15] LABS: Slide Review Reflex No
[2023-01-16] MEDS: PROCHLORPERAZINE 5 MG/ML VIAL 10 MG IV (13:31)
[2023-01-16] MEDS: ACETAMINOPHEN 325 MG TABLET 975 MG PO (15:26)
[2023-01-16 15:30] VITALS: BP 110/59; PULSE 90; RESP 16; TEMP 37.3; O2SAT 99
--- NOTE | 2023-01-16 16:38 | PM.IMPN1 ---
Progress Note: A&P Assessment and plan (1) Neutropenia with fever: Problem details: - cultures obtained, in essentially negative to date. Urine culture grew out mixed Gram-positive cocci consistent with normal joy. - on empiric Cefepime IV. Given that she has been afebrile for 24 hours was switched to oral ciprofloxacin 750 mg b.i.d. and oral Augmentin 500/1251 tab p.o. t.i.d. - further imaging or repeat cultures with any change in condition, recurrent fever - Absolute neutrophil count of 700 on 01/14/2023, 400 on 01/15/2023, and 200 on 01/16/2023. Continue to monitor - as of 01/16/2023, afebrile for over 36 hours. Status: Acute (2) Breast cancer, left: Problem details: - left-sided T2N1/0 M0 grade 3 triple negative BRCA negative - follows with Oncology at [facility] - last Chemo 01/08 - discussed with physician assistant production manager in [facility]. Patient has follow-up appointment scheduled for 01/24/2023. Keep that appointment. Will range for CBC with results to the [facility] this coming 01/19/2023. Status: Acute (3) Chemotherapy adverse reaction: Problem details: - neutropenic fever, reviewed with [facility], [place], [place] Status: Acute Plan 1. Reviewed with patient. 2. Patient agreeable. 3. Continue with plan as specified above, with possible discharge tomorrow if her condition continues to be stable and improved. Time Spent With Patient Total time spent: 45 minutes Subjective Time Seen by Provider: 11:00 Date Seen: 01/16/23 Interval history: Hospital day 3. Myalgias, arthralgias, cephalgia resolved. No longer spiking fevers. Baseline gingival discomfort since she started chemotherapy. Appetite is decreased today with increasing sense of nausea still on IV fluids. Tolerating increased activities. Exam Narrative: Exam Narrative: Examine her in her hospital room. Appears comfortable and in no acute distress. Alert and oriented to self, place, time, situation. Friendly, cooperative, articulate. Appropriately anxious. Skin is intact. Lungs are clear. Heart tones with regular rhythm. Abdomen benign. Independent transfer, station, gait. No focal motor neurologic deficits. Const: Vital Signs, click to edit/add: Vital Signs - 24 hr 01/15/23 19:30 01/15/23 23:00 01/15/23 23:00 Temperature 98.1 F Pulse Rate [Pulse Oximeter] 72 69 Respiratory Rate 16 16 16 Blood Pressure [Ri ght Arm] 105/60 Pulse Oximetry 99 98 Oxygen Delivery Me thod Room Air Room Air 01/15/23 23:00 01/16/23 03:00 01/16/23 08:00 Temperature 97.7 F 97 F L Pulse Rate [Pulse Oximeter] 69 61 75 Respiratory Rate 16 16 16 Blood Pressure [Ri ght Arm] 103/74 85/48 L Pulse Oximetry 98 97 Oxygen Delivery Me thod Room Air Room Air 01/16/23 08:00 01/16/23 08:00 01/16/23 11:00 Temperature 98.4 F 98.6 F Pulse Rate [Pulse Oximeter] 75 75 Respiratory Rate 16 16 16 Blood Pressure [Ri ght Arm] 103/66 98/61 Pulse Oximetry 98 98 100 Oxygen Delivery Me thod Room Air Room Air Room Air 01/16/23 15:30 01/16/23 15:30 01/16/23 15:30 Temperature 99.1 F Pulse Rate [Pulse Oximeter] 90 90 Respiratory Rate 16 16 16 Blood Pressure [Ri ght Arm] 110/59 L Pulse Oximetry 99 99 Oxygen Delivery Me thod Room Air Room Air Labs Labs: Laboratory Results - last 24 hr 01/16/23 10:10 WBC 1.53 L* RBC 2.73 L Hgb 8.8 L Hct 25.8 L MCV 95 MCH 32 MCHC 34 RDW Coeff of Medardo 11.1 L Plt Count 73 L Neut % (Auto) 15.7 L Lymph % (Auto) 49.0 H [place] % (Auto) 15.7 H Eos % (Auto) 17.6 H Baso % (Auto) 2.0 Neut # (Auto) 0.20 L Lymph # (Auto) 0.70 L [place] # (Auto) 0.20 Eos # (Auto) 0.30 Baso # (Auto) 0.00 Abs Immat Gran (auto) 0.00 Imm/Tot Granulo (auto) 0.0 Sodium 134 L
[2023-01-16] MEDS: LACTOBACILLUS ACIDOPHILUS 1 TABLET 2 TAB PO (18:04)
[2023-01-16] MEDS: AMOXICILLIN/CLAVULANATE 500 mg/125 mg TABLET PO (18:04)
--- NOTE | 2023-01-16 18:43 | PC.NURSE ---
PATIENT AFEBRILE. INTERMITTENT NAUSEA WITH 2 EMESIS. NAUSEA IMPROVED WITH COMPAZINE IV. PATIENT DID REPORT A HEADACHE THAT IMPROVED WITH TYLENOL. PATIENT HAD BM TODAY.
[2023-01-16 19:00] VITALS: BP 111/56; PULSE 76; RESP 16; TEMP 36.8; O2SAT 98
[2023-01-16] MEDS: ENOXAPARIN 40 MG/0.4 ML INJ SUBCUT (21:17)
[2023-01-16] MEDS: CIPROFLOXACIN 250 MG TABLET 750 MG PO (21:17)
[2023-01-16 23:00] VITALS: BP 106/58; PULSE 71; RESP 14; TEMP 36.5; O2SAT 97
[2023-01-17] MEDS: 0.9 % SODIUM CHLORIDE 1000 ml 1,000 ML 125 ML IV (02:52)
[2023-01-17 03:00] VITALS: BP 98/52; PULSE 66; RESP 16; TEMP 36.7; O2SAT 96
[2023-01-17 06:31] LABS: Basophils Percent Auto 1.1 % (0.0-3.0); Eosinophils Percent Auto 18.5 % (0.0-7.0); Hematocrit 23.5 % (33.0-51.0); Hemoglobin* 8.4 gm/dL (12.0-16.0); Lymphocytes Percent Auto 46.6 % (20-44); Mean Corpuscular HGB Conc 36 gm/dL (32-36); Mean Corpuscular Hemoglobin 33 pg (26-34); Mean Corpuscular Volume 92 fL (80-100); Monocytes Percent Auto 15.7 % (0.0-11.0); Neutrophils Percent Auto 18.1 % (42.0-72.0); Platelet Count* 74 K/uL (140-440); Red Blood Count 2.55 m/uL (4.00-5.20)
[2023-01-17 06:47] LABS: White Blood Count* 1.78 K/uL (4.50-11.00)
[2023-01-17 06:48] LABS: Slide Review Reflex Yes
[2023-01-17 06:59] LABS: Chloride* 107 mmol/L (96-114); Potassium* 3.6 mmol/L (3.6-5.1); Sodium* 134 mmol/L (135-149)
[2023-01-17 07:01] LABS: Creatinine* 0.7 mg/dL (0.5-1.5); Est. Creatinine Clearance* 108.91; Estimated Glomerular Filt Rate 112 ml/min
[2023-01-17 07:02] LABS: Anion Gap 6 mEq/L (7-15); Blood Urea Nitrogen* 4 mg/dL (5-24); Calcium* 8.1 mg/dL (8.4-10.6); Carbon Dioxide* 21 mmol/L (20-32); Glucose* 68 mg/dL (60-115)
[2023-01-17 07:29] LABS: Slide Review Acceptable Review (Acceptable)
--- NOTE | 2023-01-17 07:31 | PC.NURSE ---
End of shift [id number]: Pleasant and cooperative. Continues to report headache rating 4/10, denies need for PRN medication at this time, pain is currently tolerable. Ate approximately 25% of dinner, denied any nausea or vomiting throughout the night. Afebrile, denies any pain, or burning with urination. Independent in room with ambulation.
[2023-01-17 07:43] VITALS: BP 100/51; PULSE 68; RESP 14; TEMP 36.8; O2SAT 96
[2023-01-17] MEDS: LACTOBACILLUS ACIDOPHILUS 1 TABLET 2 TAB PO (07:48)
[2023-01-17] MEDS: AMOXICILLIN/CLAVULANATE 500 mg/125 mg TABLET PO (07:48)
[2023-01-17] MEDS: PROCHLORPERAZINE 5 MG/ML VIAL 10 MG IV (09:26)
[2023-01-17] MEDS: CIPROFLOXACIN 250 MG TABLET 750 MG PO (10:19)
[2023-01-17 11:18] VITALS: BP 113/65; PULSE 79; RESP 16; TEMP 36.8; O2SAT 99
--- NOTE | 2023-01-17 12:20 | PC.NURSE ---
Discharge: Patient pleasant and cooperative. Patient vitally stable, lungs clear, BS WNL, Port SL and intact, redressed. Patient independent in room. Patient rates headache 2/10, declined tylenol. Patient had 1 emesis 100cc, compazine given nausea resolved. Patient not with great appetite ate about 25% of breakfast, patient urinating. Patient ambulated the halls awaiting discharge. Patient left the floor by foot to home with mother and belongings at 1216.
--- NOTE | 2023-01-18 14:42 | PM.DS1 ---
DS: Providers Provider Time Seen by Provider: 08:00 Date Seen: 01/17/23 Date of admission: 01/14/23 14:30 Primary care physician: Ignacia Madsen PA-C Admitting Clinician: Vikash Diaz MD Attending Physician on discharge: Vikash Diaz MD Date of Discharge: 01/17/23 DS: Diagnosis Discharge Diagnosis (1) Neutropenia with fever: Status: Acute Problem details: - cultures obtained, in essentially negative to date. Urine culture grew out mixed Gram-positive cocci consistent with normal joy. - Initially on empiric Cefepime IV. Given that she was afebrile for 24 hours, switched to oral ciprofloxacin 750 mg b.i.d. and oral Augmentin 875/125 1 tab p.o. b.i.d.. - Absolute neutrophil count of 700 on 01/14/2023, 400 on 01/15/2023, and 200 on 01/16/2023, 300 on 01/17/2023. Continue to monitor - as of 01/17/2023, afebrile for over 24 hours on oral antibiotics. (2) Chemotherapy adverse reaction: Status: Acute Problem details: - neutropenic fever, reviewed with [facility], [place], [place] (3) Breast cancer, left: Status: Acute Problem details: - left-sided T2N1/0 M0 grade 3 triple negative BRCA negative - follows with Oncology at [facility] - last Chemo 01/08 - discussed with physician email marketing assistant in [email or web address] and [facility]. Patient has follow-up appointment scheduled for 01/24/2023. Keep that appointment. Will range for CBC with results to the [facility] this coming 01/19/2023. (4) Nausea: Status: Acute (5) Protein-calorie malnutrition, mild: Status: Acute (6) Constipation: Status: Acute DS: Summary Hospital Course Hospital Course: History of present illness: ?Kierra Colon is a 42 year old female who presented to the emergency room today for a 4 day history of general malaise and achiness, in addition to 2 days of fever. She is a breast cancer patient (diagnosed July 2022), received last course of chemotherapy on Sunday, 01/08. She felt moderately run down for 2 days after this, which is typical, but on Thursday (as she was travelling to her parent's house in [place] for [place]VE[place]), she started having diffuse generalized achiness and fatigue. Yesterday, had a temperature of 100.5?. Today had a temperature of 100.4?. She has had upper respiratory congestion as well and an intermittent dry cough. She has not had UTI symptoms or GI symptoms. Patient has had no sick contacts. Besides recent road trip to [place], she flew to [place] 2 weeks ago without incident. No recent dental visits. ER Course and Findings: - BP 80s/40s (baseline BP 90-100s), received 2L of IVFs with improvement - negative COVID/Flu/RSV - reassuring CXR and UA - WBC 2.18 with ANC of .7 (no history of neutropenia), platelets 116, Hgb 10.7 - CRP 6.2 - Lactate 1.1 ?Upon arrival to the floor, patient feels moderately better. Systolic blood pressure now > 100.? Treated with IV cefepime empirically after blood cultures and urine cultures obtained. Urine culture grew out mixed Gram-positive joy. Blood cultures negative to date. Chest x-ray without any obvious infiltrate. The port itself did not appear infected nor the insertion site. Condition slowly improved during the course of hospitalization to the point where she is ready to be discharged as specified below. Follow-up as indicated. Status at Discharge Functional status at discharge: independent ambulation Overall status at discharge: patient is progressing back to baseline Time Spent with Patient Time attestation: Total time spent providing and/or coordinating discharge services: Exam Narrative: Exam Narrative: Examine her in her hospital room. Appears comfortable and in no acute distress. Alert and oriented to self, place, time, situation. Friendly, cooperative, articulate. Appropriately anxious. Skin is intact. Eyes, buccal mucosa, oropharynx, nasal mucosa, tympanic membranes all appear normal. Lungs are clear. Heart tones with regular rhythm. Abdomen benign. Independent transfer, station, gait. No focal motor neurologic deficits. Const: Documenting provider has reviewed patient's vital signs: yes DS: Data Data Completed and Pending Labs on day of discharge: Preliminary micro results at discharge 01/14/23 11:43 Blood Culture - Preliminary Blood - Picc Line NO GROWTH AFTER 96 HOURS 01/14/23 12:42 Blood Culture - Preliminary Blood - Picc Line NO GROWTH AFTER 96 HOURS Imaging Chest x-ray: Attestation: I have reviewed the pertinent imaging results. Radiologist's impression: 01/14/2023 Impression: Normal chest radiograph. Discharge Plan Discharge Disposition: Home, Self-Care Date of Admission: 01/14/23 14:30 Attending Provider on Discharge: Vikash Diaz Primary Care Provider: Ignacia Madsen Condition: Improved Anticipated Discharge Date/Time: 01/17/23 11:30 Discharge Medications: New ciprofloxacin HCl 250 mg Tablet 750 mg PO BID 7 Days Qty: 42 0RF Lactobacillus acidophilus 0.5 mg (100 million cell) Tablet 1 mg PO TIDWM 30 Days Qty: 270 0RF Rx Instructions: May substitute with another appropriate probiotic, follow label directions, take for an entire month. amoxicillin-pot clavulanate 875-125 mg tablet 1 tab PO BID Qty: 14 0RF ondansetron 4 mg Tablet,Disintegrating 4 mg PO Q4H PRNQty: 20 1RF sennosides-docusate sodium [Stool Softener-Laxative] 8.6-50 mg Tablet 1 tab PO BID Qty: 30 0RF Rx Instructions: Hold for loose stools mirtazapine 7.5 mg tablet 7.5 mg PO DAILY Qty: 14 2RF Continued acetaminophen [Tylenol Extra Strength] 500 mg tablet 1,000 mg PO Q6H PRN diphenhydramine-acetaminophen [Tylenol PM Extra Strength] 25-500 mg tablet 2 tab PO QHS PRN Low-Ogestrel (28) 0.3-30 mg-mcg tablet 1 tab PO DAILY ibuprofen 600 mg tablet 600 mg PO Q8H PRN Excedrin Extra Strength 250-250-65 mg tablet 2 tab PO Q6H PRN Hold Instructions: not taking now prochlorperazine maleate [Compazine] 5 mg tablet 5 mg PO Q8-12H PRN (Reason: nausea and vomiting) Qty: 60 1RF olanzapine 2.5 mg tablet 2.5 mg PO QHS Qty: 30 1RF Magic Mouthwash (Lidocaine/Benadryl/Maalox) 120 mL suspension 5 ml PO TID-QID Qty: 120 1RF Rx Instructions: Lidocaine Viscous 2 % mucosal solution 40 mL; Maalox 200 mg-200 mg-20 mg/5 mL oral suspension 40 mL; Benadryl 12.5 mg/5 mL oral elixir 40 mL; Per 120 mL SWISH AND SPIT. MAY COMPOUND IF FIRST PRODUCT IS NOT AVAILABLE. escitalopram oxalate 10 mg tablet 10 mg PO DAILY No Action ondansetron 4 mg tablet,disintegrating 4 mg PO Q8H PRN (Reason: nausea and vomiting) Qty: 60 1RF Discharge Orders: Discharge Order (Routine); Ordered 01/17/23 Ordered By: Vikash Diaz Patient Education: Ciprofloxacin (By mouth), Amoxicillin/Clavulanate Potassium (By mouth), Ondansetron (By mouth), Mirtazapine (By mouth), Probiotic (By mouth), Senna (By mouth) (Sen, Senna-lax), Malnutrition (DC), Neutropenia (DC), Anorexia in Older Adults (GEN) Additional Instructions: 1. CBC to be drawn at the [facility] on Sunday01/19/2023 and on Sunday01/24/2023. 2. Keep follow-up appointment with your Oncologist as already established on Sunday01/24/2023. 3. Neutropenic precautions. Activity Level: No Restrictions and Activity as Tolerated Discharge Diet: Regular and Other Diet Detail: Neutropenic precautions. Follow Up Appointments: Ignacia Madsen PA-C [Primary Care Provider] - Forms: [employer] Info Instructions
== END 2023-01-17 12:16 | disposition home or self-care (01) | DRG 660 ==
LOC: ED 13:48 → MEDSURG 14:31
PROVIDERS: Family Medicine; Admitting Provider Internal Medicine; Emergency Provider Family Medicine; PCP Student in an Organized Health Care Education/Training Program; Visit Provider Internal Medicine
DX: D70.1 Agranulocytosis secondary to cancer chemotherapy (principal); T45.1X5A Adverse effect of antineoplastic and immunosuppressive drugs, initial encounter; E44.1 Mild protein-calorie malnutrition; C50.412 Malignant neoplasm of upper-outer quadrant of left female breast; Z17.1 Estrogen receptor negative status [ER-]; Z68.21 Body mass index [BMI] 21.0-21.9, adult; F41.9 Anxiety disorder, unspecified; K59.00 Constipation, unspecified; R11.0 Nausea
CPT/HCPCS: 36415; 71046; 80048; 80053; 81001; 81025; 83605; 84295; 85025; 86140; 87040; 87086; 87631; 99284; A9270; J0692; J0780; J1650; J2405; J7030

== ENCOUNTER 2023-01-24 08:45 | Outpatient (RCR) | payer BC, SELFPAY ==
--- NOTE | 2022-08-02 13:39 | URNOTE ---
Request received for authorization for Carboplatin (J9045), Pembrolizumab (9271), Paclitaxel (J9267). Prior authorization is approved from 08/01/2022 to 08/10/2023 by Phuc (Ref# [id number]) as pt carries [employer] [place]. Max daily doses noted on approval Carboplatin (J9045)22 units daily, Pembrolizumab (9271)400 units daily, Paclitaxel (J9267)750 units daily.
--- NOTE | 2022-08-04 11:12 | URNOTE ---
Per Harjinder Friend has been approved 08/10/2022-08/10/2023. Auth # [id number]
[2022-08-17 08:41] VITALS: BP 102/64; PULSE 54; RESP 16; TEMP 36.1; O2SAT 99
[2022-08-17] MEDS: PEMBROLIZUMAB 200 MG, TUBING PRIMARY 1 EACH, In-line 0.2 micron filter set 1 EACH in 0.... 216 MG IVPB (09:32)
[2022-08-17] MEDS: dexAMETHasone 20 MG in 0.9 % SODIUM CHLORIDE 100 ml 100 ML 408 MG IVPB (10:04)
[2022-08-17] MEDS: PALONOSETRON 0.25 MG/5 ML inj IV (10:04)
[2022-08-17] MEDS: FAMOTIDINE 20 MG, diphenhydrAMINE 50 MG in 0.9 % SODIUM CHLORIDE 100 ml 100 ML 309 MG IVPB (10:25)
[2022-08-17] MEDS: PACLitaxeL 145 MG, TUBING PRIMARY 1 EACH, In-line 0.2 micron filter set 1 EACH in 0.9 %... 274.17 MG IV (11:04)
[2022-08-24 08:50] LABS: Basophils Absolute Auto 0.04 K/uL (0.00-0.30); Basophils Percent Auto 0.6 % (0.0-3.0); Eosinophils Absolute Auto 0.17 K/uL (0.00-0.50); Eosinophils Percent Auto 2.4 % (0.0-7.0); Hematocrit 35.2 % (33.0-51.0); Hemoglobin* 11.9 gm/dL (12.0-16.0); Immature Granulocytes Abs Auto 0.07 K/uL (0.00-0.30); Lymphocytes Absolute Auto 1.49 K/uL (0.90-2.90); Lymphocytes Percent Auto 21.3 % (20-44); Mean Corpuscular HGB Conc 34 gm/dL (32-36); Mean Corpuscular Hemoglobin 32 pg (26-34); Mean Corpuscular Volume 95 fL (80-100); Monocytes Percent Auto 7.3 % (0.0-11.0); Neutrophils Percent Auto 67.4 % (42.0-72.0); Platelet Count* 264 K/uL (140-440); RDW Coefficient of Variation % 11.5 % (11.5-15.5); White Blood Count* 6.98 K/uL (4.50-11.00)
[2022-08-24 08:57] LABS: Albumin* 4.2 g/dL (3.3-5.0); Chloride* 103 mmol/L (96-114); Slide Review Reflex No
[2022-08-24 08:58] LABS: Potassium* 4.4 mmol/L (3.6-5.1); Sodium* 135 mmol/L (135-149)
[2022-08-24 09:00] LABS: Alkaline Phosphatase* 42 U/L (40-150); Aspartate Amino Transferase* 21 U/L (12-35); Bilirubin Total* 0.5 mg/dL (0.1-1.5); Blood Urea Nitrogen* 13 mg/dL (5-24); Carbon Dioxide* 25 mmol/L (20-32); Creatinine* 0.9 mg/dL (0.5-1.5); Estimated Glomerular Filt Rate 83 ml/min; Total Protein* 6.8 g/dL (6.0-8.3)
[2022-08-24 09:01] LABS: Alanine Aminotransferase* 16 U/L (4-35); Calcium* 8.8 mg/dL (8.4-10.6); Glucose* 81 mg/dL (60-115)
[2022-08-24 09:06] VITALS: BP 100/62; PULSE 58; RESP 16; TEMP 36.7; O2SAT 100
[2022-08-24] MEDS: 0.9 % SODIUM CHLORIDE 250 ml IV (09:30)
[2022-08-24] MEDS: dexAMETHasone 20 MG in 0.9 % SODIUM CHLORIDE 100 ml 100 ML 420 MG IVPB (09:40)
[2022-08-24] MEDS: PALONOSETRON 0.25 MG/5 ML inj IV (09:40)
[2022-08-24] MEDS: FAMOTIDINE 20 MG, diphenhydrAMINE 50 MG in 0.9 % SODIUM CHLORIDE 100 ml 100 ML 420 MG IVPB (10:02)
[2022-08-24] MEDS: PACLitaxeL 145 MG, TUBING PRIMARY 1 EACH, In-line 0.2 micron filter set 1 EACH in 0.9 %... 274.17 MG IV (10:22)
[2022-08-24] MEDS: HEPARIN 500 UNIT/5 ML SYRINGE IVF (12:10)
[2022-08-24] MEDS: SODIUM CHLORIDE 0.9 % (FLUSH) 10 ML SYRINGE IVF (12:10)
[2022-09-05 08:32] VITALS: BP 98/61; PULSE 60; RESP 16; TEMP 36.6; O2SAT 99
[2022-09-05 09:12] LABS: Basophils Absolute Auto 0.04 K/uL (0.00-0.30); Basophils Percent Auto 0.5 % (0.0-3.0); Eosinophils Absolute Auto 0.18 K/uL (0.00-0.50); Eosinophils Percent Auto 2.2 % (0.0-7.0); Hematocrit 36.9 % (33.0-51.0); Hemoglobin* 12.4 gm/dL (12.0-16.0); Immature Granulocytes Abs Auto 0.02 K/uL (0.00-0.30); Immature Granulocytes Pct Auto 0.2 %; Lymphocytes Percent Auto 19.5 % (20-44); Mean Corpuscular HGB Conc 34 gm/dL (32-36); Mean Corpuscular Hemoglobin 32 pg (26-34); Mean Corpuscular Volume 96 fL (80-100); Monocytes Percent Auto 8.9 % (0.0-11.0); Neutrophils Absolute Auto 5.54 K/uL (1.7-7.0); Neutrophils Percent Auto 68.7 % (42.0-72.0); Platelet Count* 274 K/uL (140-440); Red Blood Count 3.85 m/uL (4.00-5.20); White Blood Count* 8.07 K/uL (4.50-11.00)
[2022-09-05 09:31] LABS: Albumin* 4.3 g/dL (3.3-5.0); Chloride* 104 mmol/L (96-114); Potassium* 4.1 mmol/L (3.6-5.1); Sodium* 137 mmol/L (135-149)
[2022-09-05 09:34] LABS: Alanine Aminotransferase* 18 U/L (4-35); Alkaline Phosphatase* 54 U/L (40-150); Aspartate Amino Transferase* 21 U/L (12-35); Bilirubin Total* 0.7 mg/dL (0.1-1.5); Blood Urea Nitrogen* 15 mg/dL (5-24); Carbon Dioxide* 22 mmol/L (20-32); Creatinine* 0.9 mg/dL (0.5-1.5); Est. Creatinine Clearance* 86.84; Estimated Glomerular Filt Rate 83 ml/min; Glucose* 85 mg/dL (60-115); Slide Review Reflex No
[2022-09-05 09:35] LABS: Calcium* 8.8 mg/dL (8.4-10.6)
[2022-09-05] MEDS: dexAMETHasone 20 MG in 0.9 % SODIUM CHLORIDE 100 ml 100 ML 420 MG IVPB (10:19)
[2022-09-05] MEDS: PALONOSETRON 0.25 MG/5 ML inj IV (10:19)
[2022-09-05] MEDS: FAMOTIDINE 20 MG, diphenhydrAMINE 50 MG in 0.9 % SODIUM CHLORIDE 100 ml 100 ML 309 MG IVPB (10:38)
[2022-09-05] MEDS: PACLitaxeL 145 MG, TUBING PRIMARY 1 EACH, In-line 0.2 micron filter set 1 EACH in 0.9 %... 274.17 MG IV (11:02)
[2022-09-05] MEDS: HEPARIN 500 UNIT/5 ML SYRINGE IVF (12:45)
[2022-09-05] MEDS: SODIUM CHLORIDE 0.9 % (FLUSH) 10 ML SYRINGE IVF (12:45)
[2022-09-14 09:39] LABS: Hematocrit 33.6 % (33.0-51.0); Hemoglobin* 11.5 gm/dL (12.0-16.0); Mean Corpuscular HGB Conc 34 gm/dL (32-36); Mean Corpuscular Hemoglobin 32 pg (26-34); Mean Corpuscular Volume 94 fL (80-100); Platelet Count* 263 K/uL (140-440); Red Blood Count 3.56 m/uL (4.00-5.20); White Blood Count* 6.39 K/uL (4.50-11.00)
[2022-09-14 09:40] LABS: Basophils Percent Auto 0.5 % (0.0-3.0); Eosinophils Percent Auto 1.1 % (0.0-7.0); Immature Granulocytes Pct Auto 1.1 %; Lymphocytes Percent Auto 23.9 % (20-44); Monocytes Percent Auto 9.7 % (0.0-11.0); Neutrophils Percent Auto 63.7 % (42.0-72.0); Slide Review Reflex No
[2022-09-14 09:41] LABS: Albumin* 4.2 g/dL (3.3-5.0); Chloride* 103 mmol/L (96-114)
[2022-09-14 09:42] LABS: Potassium* 4.1 mmol/L (3.6-5.1); Sodium* 136 mmol/L (135-149)
[2022-09-14 09:44] LABS: Alkaline Phosphatase* 41 U/L (40-150); Aspartate Amino Transferase* 24 U/L (12-35); Bilirubin Total* 0.5 mg/dL (0.1-1.5); Blood Urea Nitrogen* 15 mg/dL (5-24); Carbon Dioxide* 24 mmol/L (20-32); Creatinine* 0.9 mg/dL (0.5-1.5); Est. Creatinine Clearance* 86.84; Estimated Glomerular Filt Rate 83 ml/min; Total Protein* 6.9 g/dL (6.0-8.3)
[2022-09-14 09:45] LABS: Alanine Aminotransferase* 21 U/L (4-35); Calcium* 8.9 mg/dL (8.4-10.6); Glucose* 99 mg/dL (60-115)
[2022-09-14] MEDS: 0.9 % SODIUM CHLORIDE 250 ml IV (11:22)
[2022-09-14] MEDS: PEMBROLIZUMAB 200 MG, TUBING PRIMARY 1 EACH, In-line 0.2 micron filter set 1 EACH in 0.... 216 MG IVPB (11:32)
[2022-09-14] MEDS: dexAMETHasone 20 MG in 0.9 % SODIUM CHLORIDE 100 ml 100 ML 420 MG IVPB (12:07)
[2022-09-14] MEDS: PALONOSETRON 0.25 MG/5 ML inj IV (12:08)
[2022-09-14] MEDS: FAMOTIDINE 20 MG, diphenhydrAMINE 50 MG in 0.9 % SODIUM CHLORIDE 100 ml 100 ML 309 MG IVPB (12:30)
[2022-09-14] MEDS: PACLitaxeL 145 MG, TUBING PRIMARY 1 EACH, In-line 0.2 micron filter set 1 EACH in 0.9 %... 274.17 MG IV (13:00)
[2022-09-15 18:53] LABS: Cortisol, Serum 29.2 ug/dL
[2022-09-21 10:14] VITALS: BP 105/64; PULSE 66; RESP 16; TEMP 36.1; O2SAT 98
[2022-09-21 10:17] LABS: Basophils Absolute Auto 0.03 K/uL (0.00-0.30); Basophils Percent Auto 0.3 % (0.0-3.0); Eosinophils Absolute Auto 0.11 K/uL (0.00-0.50); Eosinophils Percent Auto 1.2 % (0.0-7.0); Hematocrit 34.4 % (33.0-51.0); Hemoglobin* 11.6 gm/dL (12.0-16.0); Immature Granulocytes Abs Auto 0.13 K/uL (0.00-0.30); Immature Granulocytes Pct Auto 1.4 %; Lymphocytes Percent Auto 14.5 % (20-44); Mean Corpuscular HGB Conc 34 gm/dL (32-36); Mean Corpuscular Hemoglobin 32 pg (26-34); Mean Corpuscular Volume 95 fL (80-100); Monocytes Percent Auto 6.3 % (0.0-11.0); Neutrophils Percent Auto 76.3 % (42.0-72.0); Platelet Count* 219 K/uL (140-440); Red Blood Count 3.62 m/uL (4.00-5.20)
[2022-09-21 10:19] LABS: Slide Review Reflex No
[2022-09-21 10:34] LABS: Chloride* 103 mmol/L (96-114)
[2022-09-21 10:35] LABS: Albumin* 4.2 g/dL (3.3-5.0); Potassium* 4.1 mmol/L (3.6-5.1); Sodium* 135 mmol/L (135-149)
[2022-09-21 10:39] LABS: Alanine Aminotransferase* 24 U/L (4-35); Alkaline Phosphatase* 45 U/L (40-150); Aspartate Amino Transferase* 25 U/L (12-35); Bilirubin Total* 0.6 mg/dL (0.1-1.5); Blood Urea Nitrogen* 13 mg/dL (5-24); Calcium* 8.6 mg/dL (8.4-10.6); Carbon Dioxide* 21 mmol/L (20-32); Creatinine* 0.9 mg/dL (0.5-1.5); Est. Creatinine Clearance* 86.84; Estimated Glomerular Filt Rate 83 ml/min; Glucose* 117 mg/dL (60-115)
[2022-09-21] MEDS: 0.9 % SODIUM CHLORIDE 250 ml IV (10:48)
[2022-09-21] MEDS: PALONOSETRON 0.25 MG/5 ML inj IV (11:05)
[2022-09-21] MEDS: dexAMETHasone 20 MG in 0.9 % SODIUM CHLORIDE 100 ml 100 ML 420 MG IVPB (11:06)
[2022-09-21] MEDS: FAMOTIDINE 20 MG, diphenhydrAMINE 50 MG in 0.9 % SODIUM CHLORIDE 100 ml 100 ML 420 MG IVPB (11:26)
[2022-09-21] MEDS: PACLitaxeL 145 MG, TUBING PRIMARY 1 EACH, In-line 0.2 micron filter set 1 EACH in 0.9 %... 274.17 MG IV (11:46)
[2022-09-28 08:16] VITALS: BP 113/74; PULSE 72; RESP 16; TEMP 36.4; O2SAT 98
[2022-09-28 08:45] LABS: Basophils Absolute Auto 0.03 K/uL (0.00-0.30); Basophils Percent Auto 0.6 % (0.0-3.0); Eosinophils Absolute Auto 0.13 K/uL (0.00-0.50); Eosinophils Percent Auto 2.5 % (0.0-7.0); Hematocrit 35.1 % (33.0-51.0); Immature Granulocytes Abs Auto 0.03 K/uL (0.00-0.30); Immature Granulocytes Pct Auto 0.6 %; Lymphocytes Absolute Auto 1.59 K/uL (0.90-2.90); Lymphocytes Percent Auto 30.1 % (20-44); Mean Corpuscular HGB Conc 34 gm/dL (32-36); Mean Corpuscular Hemoglobin 32 pg (26-34); Mean Corpuscular Volume 94 fL (80-100); Monocytes Percent Auto 9.1 % (0.0-11.0); Neutrophils Absolute Auto 3.02 K/uL (1.7-7.0); Neutrophils Percent Auto 57.1 % (42.0-72.0); Platelet Count* 229 K/uL (140-440); RDW Coefficient of Variation % 12.1 % (11.5-15.5); Red Blood Count 3.73 m/uL (4.00-5.20); White Blood Count* 5.28 K/uL (4.50-11.00)
[2022-09-28 08:47] LABS: Slide Review Reflex No
[2022-09-28 08:59] LABS: Albumin* 4.2 g/dL (3.3-5.0); Chloride* 103 mmol/L (96-114); Potassium* 3.9 mmol/L (3.6-5.1); Sodium* 137 mmol/L (135-149)
[2022-09-28 09:01] LABS: Creatinine* 0.8 mg/dL (0.5-1.5); Est. Creatinine Clearance* 97.69; Estimated Glomerular Filt Rate 95 ml/min
[2022-09-28 09:02] LABS: Alanine Aminotransferase* 25 U/L (4-35); Alkaline Phosphatase* 40 U/L (40-150); Aspartate Amino Transferase* 26 U/L (12-35); Bilirubin Total* 0.6 mg/dL (0.1-1.5); Blood Urea Nitrogen* 18 mg/dL (5-24); Carbon Dioxide* 23 mmol/L (20-32); Glucose* 99 mg/dL (60-115); Total Protein* 7.2 g/dL (6.0-8.3)
[2022-09-28 09:03] LABS: Calcium* 8.9 mg/dL (8.4-10.6)
[2022-09-28] MEDS: 0.9 % SODIUM CHLORIDE 250 ml IV (09:30)
[2022-09-28] MEDS: dexAMETHasone 20 MG in 0.9 % SODIUM CHLORIDE 100 ml 100 ML 420 MG IVPB (09:31)
[2022-09-28] MEDS: PALONOSETRON 0.25 MG/5 ML inj IV (09:32)
[2022-09-28] MEDS: FAMOTIDINE 20 MG, diphenhydrAMINE 50 MG in 0.9 % SODIUM CHLORIDE 100 ml 100 ML 420 MG IVPB (09:55)
[2022-09-28] MEDS: PACLitaxeL 145 MG, TUBING PRIMARY 1 EACH, In-line 0.2 micron filter set 1 EACH in 0.9 %... 274.17 MG IV (10:18)
[2022-09-28] MEDS: SODIUM CHLORIDE 0.9 % (FLUSH) 10 ML SYRINGE IVF (12:00)
[2022-09-28] MEDS: HEPARIN 500 UNIT/5 ML SYRINGE IVF (12:30)
[2022-10-04 15:55] LABS: Basophils Absolute Auto 0.01 K/uL (0.00-0.30); Basophils Percent Auto 0.2 % (0.0-3.0); Eosinophils Absolute Auto 0.09 K/uL (0.00-0.50); Eosinophils Percent Auto 1.8 % (0.0-7.0); Hematocrit 33.8 % (33.0-51.0); Hemoglobin* 11.5 gm/dL (12.0-16.0); Immature Granulocytes Abs Auto 0.05 K/uL (0.00-0.30); Lymphocytes Absolute Auto 1.74 K/uL (0.90-2.90); Lymphocytes Percent Auto 33.9 % (20-44); Mean Corpuscular HGB Conc 34 gm/dL (32-36); Mean Corpuscular Hemoglobin 32 pg (26-34); Mean Corpuscular Volume 94 fL (80-100); Monocytes Percent Auto 8.2 % (0.0-11.0); Neutrophils Absolute Auto 2.83 K/uL (1.7-7.0); Neutrophils Percent Auto 54.9 % (42.0-72.0); Platelet Count* 206 K/uL (140-440); RDW Coefficient of Variation % 12.5 % (11.5-15.5); Red Blood Count 3.59 m/uL (4.00-5.20); White Blood Count* 5.14 K/uL (4.50-11.00)
[2022-10-04 15:56] LABS: Slide Review Reflex No
[2022-10-04 16:09] LABS: Albumin* 4.4 g/dL (3.3-5.0); Chloride* 101 mmol/L (96-114)
[2022-10-04 16:11] LABS: Creatinine* 0.9 mg/dL (0.5-1.5); Est. Creatinine Clearance* 86.84; Estimated Glomerular Filt Rate 83 ml/min
[2022-10-04 16:12] LABS: Alanine Aminotransferase* 36 U/L (4-35); Bilirubin Total* 0.4 mg/dL (0.1-1.5); Blood Urea Nitrogen* 12 mg/dL (5-24); Calcium* 8.9 mg/dL (8.4-10.6); Carbon Dioxide* 28 mmol/L (20-32); Glucose* 105 mg/dL (60-115); Total Protein* 7.5 g/dL (6.0-8.3)
[2022-10-04 16:35] LABS: Potassium* 3.6 mmol/L (3.6-5.1); Sodium* 137 mmol/L (135-149)
[2022-10-04 16:50] LABS: Alkaline Phosphatase* 58 U/L (40-150)
[2022-10-04 16:53] LABS: Aspartate Amino Transferase* 42 U/L (12-35)
[2022-10-05] MEDS: PEMBROLIZUMAB 200 MG, TUBING PRIMARY 1 EACH, In-line 0.2 micron filter set 1 EACH in 0.... 216 MG IVPB (10:18)
[2022-10-05] MEDS: dexAMETHasone 20 MG in 0.9 % SODIUM CHLORIDE 100 ml 100 ML 408 MG IVPB (10:58)
[2022-10-05] MEDS: PALONOSETRON 0.25 MG/5 ML inj IV (10:58)
[2022-10-05] MEDS: FAMOTIDINE 20 MG, diphenhydrAMINE 50 MG in 0.9 % SODIUM CHLORIDE 100 ml 100 ML 309 MG IVPB (11:28)
[2022-10-05] MEDS: PACLitaxeL 145 MG, TUBING PRIMARY 1 EACH, In-line 0.2 micron filter set 1 EACH in 0.9 %... 274.17 MG IV (11:59)
[2022-10-05] MEDS: SODIUM CHLORIDE 0.9 % (FLUSH) 10 ML SYRINGE IVF (12:42)
[2022-10-05] MEDS: HEPARIN 500 UNIT/5 ML SYRINGE IVF (12:42)
[2022-10-05] MEDS: 0.9 % SODIUM CHLORIDE 250 ml IV (12:42)
[2022-10-06 21:04] LABS: Cortisol, Serum 21.8 ug/dL
[2022-10-12 08:51] VITALS: BP 98/63; PULSE 67; RESP 16; TEMP 36.2; O2SAT 97
[2022-10-12 09:11] LABS: Basophils Percent Auto 0.7 % (0.0-3.0); Eosinophils Percent Auto 1.4 % (0.0-7.0); Hematocrit 30.3 % (33.0-51.0); Hemoglobin* 10.4 gm/dL (12.0-16.0); Immature Granulocytes Pct Auto 0.5 %; Lymphocytes Percent Auto 29.3 % (20-44); Mean Corpuscular HGB Conc 34 gm/dL (32-36); Mean Corpuscular Hemoglobin 32 pg (26-34); Mean Corpuscular Volume 94 fL (80-100); Monocytes Percent Auto 10.8 % (0.0-11.0); Neutrophils Percent Auto 57.3 % (42.0-72.0); Platelet Count* 190 K/uL (140-440); Red Blood Count 3.24 m/uL (4.00-5.20); White Blood Count* 4.26 K/uL (4.50-11.00)
[2022-10-12 09:12] LABS: Slide Review Reflex No
[2022-10-12 09:26] LABS: Chloride* 105 mmol/L (96-114)
[2022-10-12 09:27] LABS: Albumin* 4.1 g/dL (3.3-5.0); Potassium* 3.7 mmol/L (3.6-5.1); Sodium* 137 mmol/L (135-149)
[2022-10-12 09:30] LABS: Alanine Aminotransferase* 35 U/L (4-35); Alkaline Phosphatase* 35 U/L (40-150); Aspartate Amino Transferase* 33 U/L (12-35); Bilirubin Total* 0.5 mg/dL (0.1-1.5); Blood Urea Nitrogen* 11 mg/dL (5-24); Carbon Dioxide* 23 mmol/L (20-32); Creatinine* 0.9 mg/dL (0.5-1.5); Est. Creatinine Clearance* 86.84; Estimated Glomerular Filt Rate 83 ml/min; Glucose* 108 mg/dL (60-115); Total Protein* 6.9 g/dL (6.0-8.3)
[2022-10-12 09:31] LABS: Calcium* 8.4 mg/dL (8.4-10.6)
[2022-10-12] MEDS: dexAMETHasone 20 MG in 0.9 % SODIUM CHLORIDE 100 ml 100 ML 408 MG IVPB (10:42)
[2022-10-12] MEDS: PALONOSETRON 0.25 MG/5 ML inj IV (10:43)
[2022-10-12] MEDS: FAMOTIDINE 20 MG, diphenhydrAMINE 50 MG in 0.9 % SODIUM CHLORIDE 100 ml 100 ML 410 MG IVPB (11:03)
[2022-10-12] MEDS: PACLitaxeL 145 MG, TUBING PRIMARY 1 EACH, In-line 0.2 micron filter set 1 EACH in 0.9 %... 274.17 MG IV (11:24)
[2022-10-12] MEDS: HEPARIN 500 UNIT/5 ML SYRINGE IVF (13:22)
[2022-10-12] MEDS: SODIUM CHLORIDE 0.9 % (FLUSH) 10 ML SYRINGE IVF (13:22)
--- NOTE | 2022-10-13 14:37 | ONC.NURNOTE ---
Pt called this morning reporting that she had a similar reaction following chemo last night as she did last week. She was out with her significant, Luis Alfredo, when her face turned bright red, felt on fire and then proceeded to have severe headache and body aches with an escalating fever of 101.9. She proceeded to [facility] ED; fever there 102.9. Covid and Influenza tests negative; UA and blood tests negative. Pt received ABX and was admitted. Pt is concerned this is a type of reaction to her chemo. She denies itching, tingling, burning or swelling of lips, tongue, throat. No hives or rash anywhere on her body. Scheduled pt to see Dr. Tiffanie Harrell 10/19 prior to chemo that day to discuss further.
[2022-10-18 16:04] LABS: Basophils Absolute Auto 0.04 K/uL (0.00-0.30); Basophils Percent Auto 0.8 % (0.0-3.0); Eosinophils Absolute Auto 0.07 K/uL (0.00-0.50); Eosinophils Percent Auto 1.5 % (0.0-7.0); Hematocrit 29.5 % (33.0-51.0); Hemoglobin* 10.3 gm/dL (12.0-16.0); Immature Granulocytes Abs Auto 0.03 K/uL (0.00-0.30); Immature Granulocytes Pct Auto 0.6 %; Lymphocytes Absolute Auto 1.67 K/uL (0.90-2.90); Lymphocytes Percent Auto 35.2 % (20-44); Mean Corpuscular HGB Conc 35 gm/dL (32-36); Mean Corpuscular Hemoglobin 33 pg (26-34); Mean Corpuscular Volume 93 fL (80-100); Monocytes Percent Auto 12.2 % (0.0-11.0); Neutrophils Absolute Auto 2.36 K/uL (1.7-7.0); Neutrophils Percent Auto 49.7 % (42.0-72.0); Platelet Count* 207 K/uL (140-440); Red Blood Count 3.17 m/uL (4.00-5.20); White Blood Count* 4.75 K/uL (4.50-11.00)
[2022-10-18 16:06] LABS: Slide Review Reflex No
[2022-10-18 16:34] LABS: Chloride* 104 mmol/L (96-114)
[2022-10-18 16:35] LABS: Albumin* 4.2 g/dL (3.3-5.0); Potassium* 3.6 mmol/L (3.6-5.1); Sodium* 136 mmol/L (135-149)
[2022-10-18 16:38] LABS: Alanine Aminotransferase* 44 U/L (4-35); Alkaline Phosphatase* 38 U/L (40-150); Aspartate Amino Transferase* 38 U/L (12-35); Bilirubin Total* 0.5 mg/dL (0.1-1.5); Blood Urea Nitrogen* 8 mg/dL (5-24); Carbon Dioxide* 21 mmol/L (20-32); Creatinine* 0.8 mg/dL (0.5-1.5); Est. Creatinine Clearance* 97.69; Estimated Glomerular Filt Rate 95 ml/min; Glucose* 102 mg/dL (60-115)
[2022-10-18 16:39] LABS: Calcium* 8.7 mg/dL (8.4-10.6)
[2022-10-19] MEDS: PALONOSETRON 0.25 MG/5 ML inj IV (09:37)
[2022-10-19] MEDS: dexAMETHasone 20 MG in 0.9 % SODIUM CHLORIDE 100 ml 100 ML 408 MG IVPB (09:44)
[2022-10-19] MEDS: FAMOTIDINE 20 MG, diphenhydrAMINE 50 MG in 0.9 % SODIUM CHLORIDE 100 ml 100 ML 410 MG IVPB (10:13)
[2022-10-19] MEDS: PACLitaxeL 145 MG, TUBING PRIMARY 1 EACH, In-line 0.2 micron filter set 1 EACH in 0.9 %... 274.17 MG IV (10:35)
[2022-10-25 15:31] LABS: Basophils Absolute Auto 0.03 K/uL (0.00-0.30); Basophils Percent Auto 0.7 % (0.0-3.0); Eosinophils Absolute Auto 0.08 K/uL (0.00-0.50); Eosinophils Percent Auto 1.8 % (0.0-7.0); Hematocrit 32.9 % (33.0-51.0); Hemoglobin* 11.1 gm/dL (12.0-16.0); Immature Granulocytes Abs Auto 0.05 K/uL (0.00-0.30); Immature Granulocytes Pct Auto 1.1 %; Lymphocytes Absolute Auto 1.45 K/uL (0.90-2.90); Lymphocytes Percent Auto 32.1 % (20-44); Mean Corpuscular HGB Conc 34 gm/dL (32-36); Mean Corpuscular Hemoglobin 32 pg (26-34); Mean Corpuscular Volume 96 fL (80-100); Monocytes Percent Auto 11.9 % (0.0-11.0); Neutrophils Absolute Auto 2.37 K/uL (1.7-7.0); Neutrophils Percent Auto 52.4 % (42.0-72.0); Platelet Count* 233 K/uL (140-440); Red Blood Count 3.43 m/uL (4.00-5.20); White Blood Count* 4.52 K/uL (4.50-11.00)
[2022-10-25 15:42] LABS: Slide Review Reflex No
[2022-10-25 16:12] LABS: Chloride* 105 mmol/L (96-114)
[2022-10-25 16:13] LABS: Albumin* 4.4 g/dL (3.3-5.0); Sodium* 138 mmol/L (135-149)
[2022-10-25 16:14] LABS: Potassium* 3.7 mmol/L (3.6-5.1)
[2022-10-25 16:16] LABS: Alanine Aminotransferase* 23 U/L (4-35); Alkaline Phosphatase* 42 U/L (40-150); Aspartate Amino Transferase* 25 U/L (12-35); Bilirubin Total* 0.4 mg/dL (0.1-1.5); Blood Urea Nitrogen* 9 mg/dL (5-24); Calcium* 8.8 mg/dL (8.4-10.6); Carbon Dioxide* 26 mmol/L (20-32); Est. Creatinine Clearance* 78.15; Estimated Glomerular Filt Rate 73 ml/min; Glucose* 89 mg/dL (60-115); Total Protein* 7.3 g/dL (6.0-8.3)
[2022-10-26 09:18] VITALS: BP 107/70; PULSE 67; RESP 16; TEMP 36.1; O2SAT 100
[2022-10-26] MEDS: PEMBROLIZUMAB 200 MG, TUBING PRIMARY 1 EACH, In-line 0.2 micron filter set 1 EACH in 0.... 216 MG IVPB (09:37)
[2022-10-26] MEDS: 0.9 % SODIUM CHLORIDE 250 ml IV (09:39)
[2022-10-26] MEDS: dexAMETHasone 20 MG in 0.9 % SODIUM CHLORIDE 100 ml 100 ML 420 MG IVPB (10:11)
[2022-10-26] MEDS: PALONOSETRON 0.25 MG/5 ML inj IV (10:11)
[2022-10-26] MEDS: FAMOTIDINE 20 MG, diphenhydrAMINE 50 MG in 0.9 % SODIUM CHLORIDE 100 ml 100 ML 420 MG IVPB (10:29)
[2022-10-26] MEDS: PACLitaxeL 145 MG, TUBING PRIMARY 1 EACH, In-line 0.2 micron filter set 1 EACH in 0.9 %... 274.17 MG IV (10:57)
--- NOTE | 2022-10-27 11:31 | URNOTE ---
Addendum entered by Yarelis Dietrich RN 10/30/22 15:41: Neulasta (J2506) is now approved. 10/27/2022-05/15/2023. REf #[id number] Original Note: Per Phuc, Doxorubicin (J900), Cyclophosphamide (J9070), Pembrolizumab (J9271) have been approved. Auth #[id number] 11/16/2022-07/13/2322 Palonosetron(J2469) and Foxaprepitant (J1453) have been approved Auth #[id number] 11/16/2022-11/16/2023 Neulasta (J2506) is pending medical review at this time.
[2022-10-27 15:19] LABS: Cortisol, Serum 16.1 ug/dL
[2022-11-02 08:43] VITALS: BP 111/75; PULSE 69; RESP 18; TEMP 36.8; O2SAT 97
[2022-11-02 09:00] LABS: Basophils Absolute Auto 0.03 K/uL (0.00-0.30); Basophils Percent Auto 0.5 % (0.0-3.0); Eosinophils Absolute Auto 0.06 K/uL (0.00-0.50); Hematocrit 31.8 % (33.0-51.0); Hemoglobin* 10.9 gm/dL (12.0-16.0); Immature Granulocytes Abs Auto 0.05 K/uL (0.00-0.30); Immature Granulocytes Pct Auto 0.9 %; Lymphocytes Absolute Auto 1.35 K/uL (0.90-2.90); Lymphocytes Percent Auto 23.6 % (20-44); Mean Corpuscular HGB Conc 34 gm/dL (32-36); Mean Corpuscular Hemoglobin 33 pg (26-34); Mean Corpuscular Volume 96 fL (80-100); Monocytes Percent Auto 8.7 % (0.0-11.0); Neutrophils Absolute Auto 3.73 K/uL (1.7-7.0); Neutrophils Percent Auto 65.3 % (42.0-72.0); Platelet Count* 218 K/uL (140-440); RDW Coefficient of Variation % 13.8 % (11.5-15.5); Red Blood Count 3.31 m/uL (4.00-5.20); White Blood Count* 5.72 K/uL (4.50-11.00)
[2022-11-02 09:10] LABS: Slide Review Reflex No
[2022-11-02 09:12] LABS: Albumin* 4.3 g/dL (3.3-5.0)
[2022-11-02 09:13] LABS: Chloride* 106 mmol/L (96-114); Sodium* 138 mmol/L (135-149)
[2022-11-02 09:15] LABS: Aspartate Amino Transferase* 22 U/L (12-35); Bilirubin Total* 0.5 mg/dL (0.1-1.5); Carbon Dioxide* 24 mmol/L (20-32); Creatinine* 0.8 mg/dL (0.5-1.5); Est. Creatinine Clearance* 97.69; Estimated Glomerular Filt Rate 95 ml/min; Total Protein* 7.1 g/dL (6.0-8.3)
[2022-11-02 09:16] LABS: Alanine Aminotransferase* 20 U/L (4-35); Alkaline Phosphatase* 40 U/L (40-150); Blood Urea Nitrogen* 11 mg/dL (5-24); Calcium* 8.7 mg/dL (8.4-10.6); Glucose* 103 mg/dL (60-115)
[2022-11-02] MEDS: dexAMETHasone 20 MG in 0.9 % SODIUM CHLORIDE 100 ml 100 ML 408 MG IVPB (10:20)
[2022-11-02] MEDS: PALONOSETRON 0.25 MG/5 ML inj IV (10:21)
[2022-11-02] MEDS: 0.9 % SODIUM CHLORIDE 250 ml IV (10:21)
[2022-11-02] MEDS: FAMOTIDINE 20 MG, diphenhydrAMINE 50 MG in 0.9 % SODIUM CHLORIDE 100 ml 100 ML 309 MG IVPB (10:42)
[2022-11-02] MEDS: PACLitaxeL 145 MG, TUBING PRIMARY 1 EACH, In-line 0.2 micron filter set 1 EACH in 0.9 %... 274.17 MG IV (11:24)
[2022-11-02] MEDS: SODIUM CHLORIDE 0.9 % (FLUSH) 10 ML SYRINGE IVF (12:54)
[2022-11-02] MEDS: HEPARIN 500 UNIT/5 ML SYRINGE IVF (12:54)
--- NOTE | 2022-11-02 15:24 | ONC.NURNOTE ---
I met with patient during her infusion appointment today. Chemotherapy teaching re: AC/Pembro +Neulasta was completed and printed information was provided. Patient verbalizes understanding.
[2022-11-08 15:19] LABS: Basophils Absolute Auto 0.02 K/uL (0.00-0.30); Basophils Percent Auto 0.3 % (0.0-3.0); Eosinophils Absolute Auto 0.04 K/uL (0.00-0.50); Eosinophils Percent Auto 0.7 % (0.0-7.0); Hematocrit 32.6 % (33.0-51.0); Hemoglobin* 11.3 gm/dL (12.0-16.0); Immature Granulocytes Abs Auto 0.09 K/uL (0.00-0.30); Immature Granulocytes Pct Auto 1.5 %; Lymphocytes Absolute Auto 1.56 K/uL (0.90-2.90); Mean Corpuscular HGB Conc 35 gm/dL (32-36); Mean Corpuscular Hemoglobin 33 pg (26-34); Mean Corpuscular Volume 96 fL (80-100); Neutrophils Absolute Auto 3.81 K/uL (1.7-7.0); Neutrophils Percent Auto 63.5 % (42.0-72.0); Platelet Count* 246 K/uL (140-440); RDW Coefficient of Variation % 13.6 % (11.5-15.5)
[2022-11-08 15:20] LABS: Slide Review Reflex No
[2022-11-08 15:31] LABS: Chloride* 103 mmol/L (96-114)
[2022-11-08 15:32] LABS: Albumin* 4.4 g/dL (3.3-5.0); Potassium* 3.7 mmol/L (3.6-5.1); Sodium* 138 mmol/L (135-149)
[2022-11-08 15:34] LABS: Bilirubin Total* 0.4 mg/dL (0.1-1.5); Carbon Dioxide* 26 mmol/L (20-32); Creatinine* 0.8 mg/dL (0.5-1.5); Est. Creatinine Clearance* 97.69; Estimated Glomerular Filt Rate 95 ml/min; Total Protein* 7.1 g/dL (6.0-8.3)
[2022-11-08 15:35] LABS: Alanine Aminotransferase* 19 U/L (4-35); Alkaline Phosphatase* 45 U/L (40-150); Aspartate Amino Transferase* 24 U/L (12-35); Blood Urea Nitrogen* 9 mg/dL (5-24); Calcium* 8.7 mg/dL (8.4-10.6); Glucose* 102 mg/dL (60-115)
[2022-11-09] MEDS: PALONOSETRON 0.25 MG/5 ML inj IV (11:54)
[2022-11-09] MEDS: dexAMETHasone 20 MG in 0.9 % SODIUM CHLORIDE 100 ml 100 ML 408 MG IVPB (11:54)
[2022-11-09] MEDS: 0.9 % SODIUM CHLORIDE 250 ml IV (11:54)
[2022-11-09] MEDS: SODIUM CHLORIDE 0.9 % (FLUSH) 10 ML SYRINGE IVF (11:54)
[2022-11-09] MEDS: HEPARIN 500 UNIT/5 ML SYRINGE IVF (11:55)
[2022-11-09] MEDS: FAMOTIDINE 20 MG, diphenhydrAMINE 50 MG in 0.9 % SODIUM CHLORIDE 100 ml 100 ML 309 MG IVPB (12:19)
[2022-11-09] MEDS: PACLitaxeL 145 MG, TUBING PRIMARY 1 EACH, In-line 0.2 micron filter set 1 EACH in 0.9 %... 274.17 MG IV (12:40)
[2022-11-15 15:55] LABS: Basophils Absolute Auto 0.02 K/uL (0.00-0.30); Basophils Percent Auto 0.4 % (0.0-3.0); Eosinophils Percent Auto 1.8 % (0.0-7.0); Hematocrit 33.8 % (33.0-51.0); Hemoglobin* 11.4 gm/dL (12.0-16.0); Immature Granulocytes Abs Auto 0.06 K/uL (0.00-0.30); Immature Granulocytes Pct Auto 1.1 %; Lymphocytes Absolute Auto 1.52 K/uL (0.90-2.90); Lymphocytes Percent Auto 27.2 % (20-44); Mean Corpuscular HGB Conc 34 gm/dL (32-36); Mean Corpuscular Hemoglobin 34 pg (26-34); Mean Corpuscular Volume 99 fL (80-100); Monocytes Percent Auto 8.8 % (0.0-11.0); Neutrophils Percent Auto 60.7 % (42.0-72.0); Platelet Count* 244 K/uL (140-440); RDW Coefficient of Variation % 13.9 % (11.5-15.5); White Blood Count* 5.59 K/uL (4.50-11.00)
[2022-11-15 16:07] LABS: Slide Review Reflex No
[2022-11-15 16:08] LABS: Albumin* 4.3 g/dL (3.3-5.0)
[2022-11-15 16:09] LABS: Chloride* 105 mmol/L (96-114); Potassium* 4.6 mmol/L (3.6-5.1); Sodium* 138 mmol/L (135-149)
[2022-11-15 16:11] LABS: Alkaline Phosphatase* 41 U/L (40-150); Anion Gap 5 mEq/L (7-15); Aspartate Amino Transferase* 24 U/L (12-35); Bilirubin Total* 0.4 mg/dL (0.1-1.5); Blood Urea Nitrogen* 9 mg/dL (5-24); Carbon Dioxide* 28 mmol/L (20-32); Creatinine* 1.4 mg/dL (0.5-1.5); Est. Creatinine Clearance* 55.82; Estimated Glomerular Filt Rate 49 ml/min
[2022-11-15 16:12] LABS: Alanine Aminotransferase* 18 U/L (4-35); Glucose* 92 mg/dL (60-115)
[2022-11-16] MEDS: PEMBROLIZUMAB 200 MG, TUBING PRIMARY 1 EACH, In-line 0.2 micron filter set 1 EACH in 0.... 216 MG IVPB (09:58)
[2022-11-16] MEDS: PALONOSETRON 0.25 MG/5 ML inj IV (10:34)
[2022-11-16] MEDS: dexAMETHasone 10 MG in 0.9 % SODIUM CHLORIDE 100 ml 100 ML 420 MG IVPB (10:34)
[2022-11-16] MEDS: FOSAPREPITANT 150 MG inj 150 MG in 0.9 % SODIUM CHLORIDE 250 ml 250 ML 510 MG IVPB (10:53)
[2022-11-16] MEDS: DOXOrubicin 2 MG/ML inj 110 MG IVP (11:27)
[2022-11-16] MEDS: cycloPHOSphamide 1,100 MG, TUBING SECONDARY 1 EACH in 0.9 % SODIUM CHLORIDE 250 ml 250 ML 511 MG IV (11:51)
--- NOTE | 2022-11-17 11:54 | ONC.NURNOTE ---
Lm for pt following up 1st AC yesterday, reinforcing recommended antiemetic scheduling.
[2022-11-17 19:37] LABS: Calcium* 8.9 mg/dL (8.4-10.6)
[2022-11-17 23:53] LABS: Cortisol, Serum 20.4 ug/dL
[2022-11-22 09:01] LABS: Appearance Urine Clear (Clear); Bilirubin Urine Negative (Negative); Blood Urine Trace-intact (Negative); Color Urine Yellow (Yellow); Glucose Urine Negative (Negative); Ketones Urine Negative (Negative); Leukocyte Esterase Urine Negative (Negative); Nitrite Urine Negative (Negative); Protein Urine Negative (Negative); Specific Gravity Urine 1.015 (1.000-1.030); Urobilinogen Urine 0.2 (0.2-1.0)
[2022-11-22 09:04] LABS: Chloride* 103 mmol/L (96-114); Potassium* 4.5 mmol/L (3.6-5.1); Sodium* 137 mmol/L (135-149)
[2022-11-22 09:06] LABS: Creatinine* 0.9 mg/dL (0.5-1.5); Est. Creatinine Clearance* 86.84; Estimated Glomerular Filt Rate 83 ml/min
[2022-11-22 09:07] LABS: Anion Gap 9 mEq/L (7-15); Blood Urea Nitrogen* 12 mg/dL (5-24); Calcium* 8.7 mg/dL (8.4-10.6); Carbon Dioxide* 25 mmol/L (20-32); Glucose* 79 mg/dL (60-115)
[2022-11-22 09:10] LABS: Mucus Urine Few; RBC Urine 0-2 (0-2); Squamous Epithelial Cell Urine Few (None-Few); WBC Urine 0-2 (0-5)
--- NOTE | 2022-11-22 10:15 | ONC.NURNOTE ---
Creatinine back down to 0.9 and UA negative for UTI. Patient called and instructed to push fluids and report any further problems related to UTI symptoms. Stated she just had pressure so was concerned she may have UTI since she gets them all the time
[2022-12-06 14:52] LABS: Basophils Absolute Auto 0.06 K/uL (0.00-0.30); Basophils Percent Auto 0.7 % (0.0-3.0); Eosinophils Absolute Auto 0.02 K/uL (0.00-0.50); Eosinophils Percent Auto 0.2 % (0.0-7.0); Hematocrit 33.3 % (33.0-51.0); Hemoglobin* 11.7 gm/dL (12.0-16.0); Immature Granulocytes Abs Auto 0.03 K/uL (0.00-0.30); Immature Granulocytes Pct Auto 0.4 %; Lymphocytes Percent Auto 17.2 % (20-44); Mean Corpuscular HGB Conc 35 gm/dL (32-36); Mean Corpuscular Hemoglobin 34 pg (26-34); Mean Corpuscular Volume 96 fL (80-100); Monocytes Percent Auto 11.4 % (0.0-11.0); Neutrophils Absolute Auto 5.75 K/uL (1.7-7.0); Neutrophils Percent Auto 70.1 % (42.0-72.0); Platelet Count* 289 K/uL (140-440); Red Blood Count 3.46 m/uL (4.00-5.20); White Blood Count* 8.21 K/uL (4.50-11.00)
[2022-12-06 14:56] LABS: Slide Review Reflex No
[2022-12-06 15:01] LABS: Albumin* 4.4 g/dL (3.3-5.0); Chloride* 105 mmol/L (96-114)
[2022-12-06 15:02] LABS: Potassium* 3.8 mmol/L (3.6-5.1); Sodium* 136 mmol/L (135-149)
[2022-12-06 15:04] LABS: Anion Gap 6 mEq/L (7-15); Aspartate Amino Transferase* 28 U/L (12-35); Bilirubin Total* 0.4 mg/dL (0.1-1.5); Carbon Dioxide* 25 mmol/L (20-32); Creatinine* 0.9 mg/dL (0.5-1.5); Est. Creatinine Clearance* 86.84; Estimated Glomerular Filt Rate 83 ml/min; Total Protein* 7.2 g/dL (6.0-8.3)
[2022-12-06 15:05] LABS: Alanine Aminotransferase* 18 U/L (4-35); Alkaline Phosphatase* 45 U/L (40-150); Blood Urea Nitrogen* 11 mg/dL (5-24); Calcium* 9.3 mg/dL (8.4-10.6); Glucose* 108 mg/dL (60-115)
[2022-12-07 10:06] VITALS: BP 104/55; PULSE 67; RESP 18; TEMP 36.8; O2SAT 98
[2022-12-07] MEDS: dexAMETHasone 10 MG in 0.9 % SODIUM CHLORIDE 100 ml 100 ML 404 MG IVPB (11:10)
[2022-12-07] MEDS: PALONOSETRON 0.25 MG/5 ML inj IV (11:10)
[2022-12-07] MEDS: FOSAPREPITANT 150 MG inj 150 MG in 0.9 % SODIUM CHLORIDE 250 ml 250 ML 510 MG IVPB (11:36)
[2022-12-07] MEDS: PEMBROLIZUMAB 200 MG, TUBING PRIMARY 1 EACH, In-line 0.2 micron filter set 1 EACH in 0.... 216 MG IVPB (12:19)
[2022-12-07] MEDS: cycloPHOSphamide 1,100 MG, TUBING SECONDARY 1 EACH in 0.9 % SODIUM CHLORIDE 250 ml 250 ML 511 MG IV (12:57)
[2022-12-07] MEDS: DOXOrubicin 2 MG/ML inj 110 MG IVP (12:57)
[2022-12-08 21:37] LABS: Cortisol, Serum 7.9 ug/dL
[2022-12-27 14:50] LABS: Basophils Absolute Auto 0.05 K/uL (0.00-0.30); Basophils Percent Auto 0.6 % (0.0-3.0); Eosinophils Absolute Auto 0.07 K/uL (0.00-0.50); Eosinophils Percent Auto 0.8 % (0.0-7.0); Hematocrit 29.6 % (33.0-51.0); Hemoglobin* 10.7 gm/dL (12.0-16.0); Immature Granulocytes Abs Auto 0.01 K/uL (0.00-0.30); Immature Granulocytes Pct Auto 0.1 %; Lymphocytes Percent Auto 18.7 % (20-44); Mean Corpuscular HGB Conc 36 gm/dL (32-36); Mean Corpuscular Hemoglobin 33 pg (26-34); Mean Corpuscular Volume 92 fL (80-100); Monocytes Percent Auto 14.9 % (0.0-11.0); Neutrophils Percent Auto 64.9 % (42.0-72.0); Platelet Count* 302 K/uL (140-440); RDW Coefficient of Variation % 11.7 % (11.5-15.5); Red Blood Count 3.23 m/uL (4.00-5.20); White Blood Count* 8.63 K/uL (4.50-11.00)
[2022-12-27 15:09] LABS: Chloride* 102 mmol/L (96-114); Potassium* 3.9 mmol/L (3.6-5.1); Sodium* 136 mmol/L (135-149)
[2022-12-27 15:11] LABS: Creatinine* 0.8 mg/dL (0.5-1.5); Est. Creatinine Clearance* 97.25; Estimated Glomerular Filt Rate 95 ml/min
[2022-12-27 15:12] LABS: Alanine Aminotransferase* 29 U/L (4-35); Alkaline Phosphatase* 43 U/L (40-150); Anion Gap 9 mEq/L (7-15); Aspartate Amino Transferase* 50 U/L (12-35); Bilirubin Total* 0.3 mg/dL (0.1-1.5); Blood Urea Nitrogen* 12 mg/dL (5-24); Carbon Dioxide* 25 mmol/L (20-32); Glucose* 71 mg/dL (60-115); Slide Review Reflex No; Total Protein* 6.8 g/dL (6.0-8.3)
[2022-12-27 15:13] LABS: Calcium* 8.7 mg/dL (8.4-10.6)
[2022-12-30 01:45] LABS: Cortisol, Serum 0.5 ug/dL
[2023-01-08 08:47] VITALS: BP 92/61; PULSE 77; RESP 16; TEMP 35.8; O2SAT 99
[2023-01-08 08:58] LABS: Basophils Absolute Auto 0.03 K/uL (0.00-0.30); Basophils Percent Auto 0.5 % (0.0-3.0); Eosinophils Percent Auto 3.5 % (0.0-7.0); Hematocrit 29.5 % (33.0-51.0); Hemoglobin* 10.2 gm/dL (12.0-16.0); Immature Granulocytes Abs Auto 0.01 K/uL (0.00-0.30); Immature Granulocytes Pct Auto 0.2 %; Lymphocytes Absolute Auto 1.77 K/uL (0.90-2.90); Lymphocytes Percent Auto 31.2 % (20-44); Mean Corpuscular HGB Conc 35 gm/dL (32-36); Mean Corpuscular Hemoglobin 33 pg (26-34); Mean Corpuscular Volume 95 fL (80-100); Monocytes Percent Auto 16.9 % (0.0-11.0); Neutrophils Absolute Auto 2.71 K/uL (1.7-7.0); Neutrophils Percent Auto 47.7 % (42.0-72.0); Platelet Count* 250 K/uL (140-440); RDW Coefficient of Variation % 11.5 % (11.5-15.5); White Blood Count* 5.68 K/uL (4.50-11.00)
[2023-01-08 08:59] LABS: Slide Review Reflex No
[2023-01-08 09:09] LABS: Albumin* 3.8 g/dL (3.3-5.0); Chloride* 109 mmol/L (96-114); Sodium* 138 mmol/L (135-149)
[2023-01-08 09:12] LABS: Alanine Aminotransferase* 18 U/L (4-35); Alkaline Phosphatase* 45 U/L (40-150); Anion Gap 8 mEq/L (7-15); Aspartate Amino Transferase* 35 U/L (12-35); Bilirubin Total* 0.5 mg/dL (0.1-1.5); Blood Urea Nitrogen* 7 mg/dL (5-24); Carbon Dioxide* 21 mmol/L (20-32); Creatinine* 0.8 mg/dL (0.5-1.5); Est. Creatinine Clearance* 97.69; Estimated Glomerular Filt Rate 95 ml/min; Total Protein* 6.6 g/dL (6.0-8.3)
[2023-01-08 09:13] LABS: Calcium* 8.7 mg/dL (8.4-10.6); Glucose* 75 mg/dL (60-115)
[2023-01-08] MEDS: SODIUM CHLORIDE 0.9 % (FLUSH) 10 ML SYRINGE IVF (09:40)
[2023-01-08] MEDS: 0.9 % SODIUM CHLORIDE 250 ml IV (10:16)
[2023-01-08] MEDS: dexAMETHasone 20 MG in 0.9 % SODIUM CHLORIDE 100 ml 100 ML 420 MG IVPB (10:41)
[2023-01-08] MEDS: PALONOSETRON 0.25 MG/5 ML inj IV (10:41)
[2023-01-08] MEDS: FOSAPREPITANT 150 MG inj 150 MG in 0.9 % SODIUM CHLORIDE 250 ml 250 ML 510 MG IVPB (11:02)
[2023-01-08] MEDS: DOXOrubicin 2 MG/ML inj 110 MG IVP (11:35)
[2023-01-08] MEDS: cycloPHOSphamide 1,100 MG, TUBING SECONDARY 1 EACH in 0.9 % SODIUM CHLORIDE 250 ml 250 ML 511 MG IV (11:51)
--- NOTE | 2023-01-09 08:48 | ONC.NURNOTE ---
LM for pt with appt info to f/u with Dr. Shannon at [facility] 02/06 at 2:45, as Dr. Shannon is not in clinic 01/30.
--- NOTE | 2023-01-10 13:04 | ONC.NURNOTE ---
Pt called yesterday reporting blotchy red areas on her face; denied itching, burning, swelling or any signs of allergic reaction. 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 Moerno. Recommended trying Benadryl and Calamine lotion. LM for pt with plan. Checked in with patient today. She is feeling well; red areas are improving. She took Benadryl around 1300 and 2100 last night. She was unable to find Calamine lotion at the store. She has no concerns and will call us if worsening symptoms arise.
--- NOTE | 2023-01-15 09:43 | ONC.NURNOTE ---
seen in the ER 01/14 for fever. admitted to med/surg for Neutropenia, fever. states feeling better. encouraged her to keep us posted.
[2023-01-19] MEDS: SODIUM CHLORIDE 0.9 % (FLUSH) 10 ML SYRINGE IVF (09:08)
[2023-01-19] MEDS: HEPARIN 500 UNIT/5 ML SYRINGE IVF (09:08)
[2023-01-19 09:28] LABS: Basophils Percent Auto 1.9 % (0.0-3.0); Eosinophils Percent Auto 7.8 % (0.0-7.0); Hematocrit 28.8 % (33.0-51.0); Immature Granulocytes Pct Auto 0.6 %; Lymphocytes Percent Auto 32.4 % (20-44); Mean Corpuscular HGB Conc 35 gm/dL (32-36); Mean Corpuscular Hemoglobin 32 pg (26-34); Mean Corpuscular Volume 93 fL (80-100); Monocytes Percent Auto 24.3 % (0.0-11.0); Platelet Count* 114 K/uL (140-440); RDW Coefficient of Variation % 11.3 % (11.5-15.5); White Blood Count* 3.09 K/uL (4.50-11.00)
[2023-01-19 09:31] LABS: Slide Review Reflex No
[2023-01-24] MEDS: 0.9 % SODIUM CHLORIDE 1000 ml 1,000 ML IV (09:56)
== END 2023-01-27 23:59 | disposition home or self-care (01) ==
LOC: CCIC 08:45
PROVIDERS: Internal Medicine Hematology & Oncology; PCP Student in an Organized Health Care Education/Training Program; Referring Provider Student in an Organized Health Care Education/Training Program; Visit Provider Internal Medicine Hematology & Oncology
DX: C50.912 Malignant neoplasm of unspecified site of left female breast (principal); Z17.1 Estrogen receptor negative status [ER-]; R51.9 Headache, unspecified; R11.2 Nausea with vomiting, unspecified; D70.1 Agranulocytosis secondary to cancer chemotherapy; T45.1X5A Adverse effect of antineoplastic and immunosuppressive drugs, initial encounter; K12.31 Oral mucositis (ulcerative) due to antineoplastic therapy; I95.9 Hypotension, unspecified; R00.0 Tachycardia, unspecified; M79.10 Myalgia, unspecified site
CPT/HCPCS: 36415; 36591; 80048; 80053; 81003; 81015; 82533; 84443; 85025; 96360; 96376; 96377; 96411; 96413; 96415; 96417; 99202; 99205; 99211; 99212; 99213; 99214; 99215; J2506; J9000; J9070; J1100; J1200; J1453; J1642; J2469; J7030; J7050; J9045; J9267; J9271; S0028

== ENCOUNTER 2023-02-07 14:30 | Outpatient (RCR) | payer BC, SELFPAY | END 2023-06-07 23:59 | disposition home or self-care (01) | PROVIDERS: PCP Student in an Organized Health Care Education/Training Program; Visit Provider Internal Medicine Hematology & Oncology | DX: C50.919 Malignant neoplasm of unspecified site of unspecified female breast (principal); Z90.13 Acquired absence of bilateral breasts and nipples; M25.50 Pain in unspecified joint; M79.10 Myalgia, unspecified site; R53.1 Weakness; M79.605 Pain in left leg; M79.604 Pain in right leg; R07.9 Chest pain, unspecified; N64.4 Mastodynia; R29.898 Other symptoms and signs involving the musculoskeletal system; Z74.09 Other reduced mobility; Z51.89 Encounter for other specified aftercare | CPT/HCPCS: 97110; 97161 ==

== ENCOUNTER 2023-02-26 10:20 | Outpatient (CLI) | payer BC, SELFPAY ==
--- NOTE | 2023-02-26 10:30 | CRLHL7_ITS ---
For Patients: As a result of the Century Cures Act, medical imaging exams and procedure reports are released immediately into your electronic medical record. You may view this report before your referring provider. If you have questions, please contact your health care provider. BILATERAL BREAST MRI WITHOUT AND WITH GADOLINIUM, 02/26/2023 CLINICAL HISTORY: LEFT breast invasive ductal carcinoma with metastatic LEFT axillary lymph node. Evaluate response to neoadjuvant chemotherapy. INDICATION FOR BREAST MRI: Evaluate response to neoadjuvant chemotherapy. COMPARISON STUDIES: Breast MRI 07/27/2022. Diagnostic mammogram and ultrasound 07/13/2022 and images from ultrasound-guided LEFT biopsy and post biopsy mammogram 07/19/2022. LEFT axillary ultrasound-guided biopsy 08/04/2022. CONTRAST: 15 mL Dotarem. TECHNIQUE: The patient was positioned prone using a breast coil. Multiple imaging sequences were obtained using 1-1.5 mm thick slices with no gap. The image sequences include T2-weighted STIR in the axial plane, T1-weighted nonfat-saturated gradient echo in the axial plane, pre- and post-contrast T1-weighted FLASH 3D with fat suppression in the axial plane, and T1-weighted FLASH high resolution 3D with fat suppression in the sagittal plane. Image post-processing was performed on a CR2 workstation. Complex 3D rendering including maximum intensity projections (MIPS) and volumetric renderings were obtained to optimize visualization of the extent of pathology and relationship to the nipple, skin, and chest wall. This aids in determining feasibility of breast conservation surgery. Subtraction, multiplanar reconstruction, mean curve determination, and angiogenesis mapping were also performed. The study was technically adequate. FINDINGS: Amount of Fibroglandular Tissue: Heterogeneous fibroglandular tissue. Breast Background Enhancement: Minimal. RIGHT Breast: At 3 o`clock 2 cm posterior to the nipple there is a 0.7 x 0.7 x 0.6 cm round, rim enhancing mass demonstrating fast initial washout delayed phase kinetics. This was not present on the previous MRI. LEFT Breast: In the upper outer breast at 2 o`clock posterior depth 5 cm posterior to the nipple there is artifact from the marking clip placed in the biopsied malignant mass. There is no residual mass or enhancement associated with the marking clip. Lymph Nodes: The previously biopsied metastatic LEFT axillary lymph node is now normal in size and morphology. No abnormal morphology lymph nodes on the RIGHT. Other Findings: There is susceptibility artifact from a port in the upper inner right chest wall. There are BILATERAL retropectoral implants. IMPRESSIONS AND RECOMMENDATIONS: 1. Excellent response to neoadjuvant chemotherapy with complete resolution of the malignant mass at 2 o`clock posterior depth in the LEFT breast. The previously biopsied metastatic LEFT axillary lymph node is also now normal in size and morphology. Continued surgical/oncologic management is recommended. 2. On the RIGHT there is a new 0.7 cm rim enhancing mass at 3 o`clock, 2 cm posterior to the nipple. This is suspicious. Targeted RIGHT breast ultrasound and possible ultrasound-guided biopsy are recommended. MRI-guided biopsy would be recommended if there is no sonographic correlate. No abnormal morphology axillary lymph nodes on the RIGHT. 3. Patient is scheduled for bilateral mastectomies today. Discussed results with Dr. Shannon by phone. BI-RADS Category 4: Suspicious Dictated by Lucila Castelan MD @ 03/01/2023 9:19:11 AM jj/Dictated by: Lucila Castelan MD @ 03/01/2023 9:20:00 AM (Electronically Signed)
== END 2023-02-26 10:21 | disposition home or self-care (01) ==
LOC: MRI 10:20
PROVIDERS: PCP Student in an Organized Health Care Education/Training Program; Visit Provider Surgery
DX: C50.912 Malignant neoplasm of unspecified site of left female breast (principal)
CPT/HCPCS: 77049; A9575

== ENCOUNTER 2023-03-01 06:39 | Day surgery (SDC) | payer BC, SELFPAY ==
[2023-03-01] VITALS (22 sets, daily range): BP systolic 89–101; BP diastolic 42–67; PULSE 61–101; RESP 16; TEMP 23.8–36.9; O2SAT 96–100; BMI 20.7
[2023-03-01 07:09] LABS: Ur HCG Qualitative* Negative (Negative)
[2023-03-01] MEDS: LACTATED RINGERS 1000 ML 1,000 ML 100 ML IV ×2 (07:10→10:45)
[2023-03-01] MEDS: SODIUM CHLORIDE 0.9 % (FLUSH) 10 ML SYRINGE IVF (07:10)
[2023-03-01] MEDS: ACETAMINOPHEN 500 MG TABLET 1000 MG PO (07:15)
[2023-03-01] MEDS: GABAPENTIN 600 MG TABLET PO (07:15)
[2023-03-01] MEDS: SCOPOLAMINE 1 MG/3 DAY PATCH 1 PATCH TRANSDERMA (07:15)
--- NOTE | 2023-03-01 08:00 | CRLHL7_ITS ---
For Patients: As a result of the Century Cures Act, medical imaging exams and procedure reports are released immediately into your electronic medical record. You may view this report before your referring provider. If you have questions, please contact your health care provider. SENTINEL LYMPH NODE LOCALIZATION INJECTION CLINICAL HISTORY: Left breast cancer LATERALITY: Left TECHNIQUE: With the patient supine, the periareolar left breast was cleansed with alcohol. 2 cc of 1% buffered lidocaine was injected intradermal in the upper outer periareolar region of the left breast with a 25-gauge needle. Next, 0.62 millicuries of technetium Tc 99m filtered sulfur colloid in a volume of 1 cc was injected intradermal in the upper outer periareolar breast with a 25-gauge needle. The patient tolerated the procedure well and there were no immediate complications. IMPRESSION: Injection for sentinel lymph node of the left breast. Dictated by Abel Quick MD @ 03/01/2023 8:29:52 AM (Electronically Signed)
--- NOTE | 2023-03-01 08:15 | CRLHL7_ITS ---
For Patients: As a result of the Cures Act, medical imaging exams and procedure reports are released immediately into your electronic medical record. You may view this report before your referring provider. If you have questions, please contact your health care provider. BREAST AND LEFT AXILLARY LYMPH NODE WIRE LOCALIZATION USING ULTRASOUND GUIDANCE CLINICAL HISTORY: LEFT breast cancer and metastatic LEFT axillary adenopathy. LATERALITY: LEFT breast and LEFT axilla. LESION: LEFT axillary lymph node containing biopsy clip and LEFT breast mass upper outer quadrant 2 o`clock 8 cm from the nipple containing a clip. LOCALIZATION WIRE: [place] hookwire. TECHNIQUE: For each lesion, the localization wire was placed using real-time ultrasound guidance with image documentation. Cranial-caudal and medial-lateral digital mammograms were obtained after localization wire placement. CONSENT and TIME OUT: The procedure, risks, and alternatives were explained to the patient and a consent was signed. [place] Protocol was followed including pre-procedure verification that relevant information/documentation was available, reviewed and properly matched to the patient; consent accurate and complete; and equipment and supplies available. Time Out was conducted just prior to starting procedure to verify the four required elements: patient identity, correct side/site marked (if applicable), procedure, relevant images/results properly labeled and displayed (if applicable). PROCEDURE: For each lesion, the skin was prepped with ChloraPrep and 3 cc of 1% lidocaine was injected for local anesthesia. The localization wire was placed within or near the targeted breast lesion using ultrasound guidance. The patient tolerated the procedure well. PROXIMITY OF WIRE TO LESION: The wires are located immediately adjacent to the biopsy clip located within each lesion. IMPRESSION: Successful breast wire localization and successful left axillary lymph node wire localization. ACR not applicable Dictated by Abel Quick MD @ 03/01/2023 10:08:45 AM jj/Dictated by: Abel Quick MD @ 03/01/2023 10:08:00 AM (Electronically Signed)
--- NOTE | 2023-03-01 09:00 | CRLHL7_ITS ---
For Patients: As a result of the Cures Act, medical imaging exams and procedure reports are released immediately into your electronic medical record. You may view this report before your referring provider. If you have questions, please contact your health care provider. PLEASE SEE LEFT BREAST AND LEFT AXILLARY WIRE LOCALIZATION PERFORMED SAME DAY CRL:[email or web address] alberts/Dictated by: Abel Quick MD @ 03/01/2023 10:16:00 AM (Electronically Signed)
--- NOTE | 2023-03-01 10:10 | W.PM.H&PU ---
History & Physical Update History & Physical Update H&P Reviewed and patient assessed: The following changes are noted below H&P Updates: Kierra has no updates to her health history is her anesthetic risk, however last week her MRI had to be rescheduled until this Sunday as she was ill last week. We asked radiology to perform a stat read and she called me to discuss the results. Unfortunately, there is a new area in the right breast which the radiologist recommends biopsy of. This is small and subcentimeter. This may not be visible on ultrasound. I reviewed this with 2 different radiologists. The area does look suspicious though it seems unlikely that after chemotherapy she would now have a tumor on the right side. . It is possible if this was present all along however because of chemotherapy effect in the right breast, it is now more visible. I discussed options with Ioana. We discussed: postponing surgery until the right side could be biopsied and results were back. We discussed operating only on the left side today and biopsying the right side, returning to the OR to do the opposite side at a later date. We discussed removing the right breast and managing the axilla based on findings postoperatively, however I did not recommend this because of inability to perform sentinel lymph node biopsy after mastectomy. If the area did come back with invasive cancer then she would be committed to axillary dissection. Therefore, I discussed with her doing a sentinel node biopsy on the right. That way, if she had malignancy on the right side then we could do the sentinel node biopsy at the time of mastectomy. This would add minimal risk additionally to the surgery and I think the benefit would outweigh the risk. I told her that if the MRI had not shown anything and we had taken out the right breast and found an incidental invasive malignancy then we would have to manage the axilla the same way, with an axillary dissection at a 2nd surgery. But because we are suspicious that there is a mass in the right breast I think we should be proactive and perform the sentinel node biopsy. I apologized for having to have this conversation on the day of surgery, however, ultimately I recommended proceeding with the sentinel node biopsy on the right side. She was agreeable with this plan and it was added to the consent form.
[2023-03-01] MEDS: ISOSULFAN BLUE 5 ML VIAL INJECTION ×2 (10:40→13:48)
--- NOTE | 2023-03-01 12:03 | CRLHL7_ITS ---
For Patients: As a result of the Century Cures Act, medical imaging exams and procedure reports are released immediately into your electronic medical record. You may view this report before your referring provider. If you have questions, please contact your health care provider. SENTINEL LYMPH NODE LOCALIZATION INJECTION CLINICAL HISTORY: Suspicious area of enhancement within the right breast tissue. Patient undergoing bilateral mastectomy today for known left-sided breast cancer with left axillary metastatic disease. Right-sided sentinel node performed given the possibility of right-sided breast cancer. LATERALITY: Right breast TECHNIQUE: With the patient supine, the periareolar right breast was cleansed with alcohol. 2 cc of 1% buffered lidocaine was injected intradermal in the upper outer periareolar region of the right breast with a 25-gauge needle. Next, 0.79 millicuries of technetium Tc 99m filtered sulfur colloid in a volume of 1 cc was injected intradermal in the upper outer periareolar breast with a 25-gauge needle. The patient tolerated the procedure well and there were no immediate complications. IMPRESSION: Injection for sentinel lymph node of the right breast. Dictated by Abel Quick MD @ 03/01/2023 12:41:37 PM (Electronically Signed)
--- NOTE | 2023-03-01 12:10 | SUR.OPER ---
Nuclear med Tech in OR for injection of right breast @ [id number] Shannon
--- NOTE | 2023-03-01 12:30 | CRLHL7_ITS ---
For Patients: As a result of the Cures Act, medical imaging exams and procedure reports are released immediately into your electronic medical record. You may view this report before your referring provider. If you have questions, please contact your health care provider. INDICATION: Intra-op mastectomy breast wire localization TECHNIQUE: Intra op films of the left side of the chest. COMPARISON: Localization procedure earlier same day FINDINGS: Biopsy clip located within the left lateral chest wall with an associated wire present adjacent to the clip. Left lung clear. Postop changes soft tissues. IMPRESSION: The clip is present within the left lateral chest wall soft tissues adjacent to the wire. Dictated by Abel Quick MD @ 03/02/2023 12:07:42 PM (Electronically Signed)
--- NOTE | 2023-03-01 12:37 | CRLHL7_ITS ---
For Patients: As a result of the Century Cures Act, medical imaging exams and procedure reports are released immediately into your electronic medical record. You may view this report before your referring provider. If you have questions, please contact your health care provider. CLINICAL HISTORY: Left breast cancer with metastatic left axillary lymph nodes COMPARISON: 02/26/2023 FINDINGS/IMPRESSION: Four images of the left mastectomy specimen submitted. No biopsy clip is present. Localization wire. ACR not applicable. Dictated by Abel Quick MD @ 03/01/2023 1:13:10 PM (Electronically Signed)
--- NOTE | 2023-03-01 12:39 | CRLHL7_ITS ---
For Patients: As a result of the Century Cures Act, medical imaging exams and procedure reports are released immediately into your electronic medical record. You may view this report before your referring provider. If you have questions, please contact your health care provider. CLINICAL HISTORY: Metastatic left breast cancer to the left axilla. COMPARISON: 02/26/2023 MRI FINDINGS/IMPRESSION: Two views left axillary lymph node specimen submitted. Lymph node is noted. No clip or localization wire. ACR not applicable. Dictated by Abel Quick MD @ 03/01/2023 1:11:58 PM (Electronically Signed)
--- NOTE | 2023-03-01 12:57 | CRLHL7_ITS ---
For Patients: As a result of the Century Cures Act, medical imaging exams and procedure reports are released immediately into your electronic medical record. You may view this report before your referring provider. If you have questions, please contact your health care provider. CLINICAL HISTORY: Left breast cancer COMPARISON: 02/26/2023 FINDINGS: Left axillary lymph node specimen radiographs submitted, two-views. Multiple left axillary lymph nodes are present including a lymph node containing the biopsy clip. No wire. IMPRESSION: Biopsy clip is present within 1 of the excised lymph nodes. Dictated by Abel Quick MD @ 03/02/2023 9:01:05 AM (Electronically Signed)
--- NOTE | 2023-03-01 13:33 | CRLHL7_ITS ---
For Patients: As a result of the Cures Act, medical imaging exams and procedure reports are released immediately into your electronic medical record. You may view this report before your referring provider. If you have questions, please contact your health care provider. CLINICAL HISTORY: Left breast cancer COMPARISON: 02/26/2023 FINDINGS: Left axillary lymph node specimen submitted, two views. Left axillary lymph nodes are present. No biopsy clip. No wire. IMPRESSION: Axillary lymph nodes are present within the specimen. No clip for wire. ACR not applicable. Dictated by Abel Quick MD @ 03/02/2023 9:02:18 AM (Electronically Signed)
--- NOTE | 2023-03-01 13:52 | CRLHL7_ITS ---
For Patients: As a result of the Century Cures Act, medical imaging exams and procedure reports are released immediately into your electronic medical record. You may view this report before your referring provider. If you have questions, please contact your health care provider. CLINICAL HISTORY: Left breast cancer COMPARISON: 02/26/2023 FINDINGS: Left breast specimen submitted, two views. Biopsy clip is present with the residual mass and localization wire. IMPRESSION: Specimen contains the residual mass, the biopsy clip and the localization wire. ACR not applicable. Dictated by Abel Quick MD @ 03/02/2023 9:03:31 AM (Electronically Signed)
[2023-03-01] MEDS: CEFAZOLIN 1 GM inj IVP (14:08)
--- NOTE | 2023-03-01 14:45 | SUR.OPER ---
Proecedure and patient status updates provided via phone to significant other throughout procedure.
--- NOTE | 2023-03-01 14:50 | SUR.OPER ---
Procedure and patient status updates provided via phone to significant other throughout procedure.
--- NOTE | 2023-03-01 16:27 | W.PM.NB ---
Nerve Block Nerve Block Time Seen by Provider: 10:22 Date Seen: 03/01/23 Type of block requested by surgeon for post-operative analgesia: intercostal and intercostal add on Side: bilateral Time out performed: Yes Verification of patient name: Yes Verification of date of : Yes Site marking: site marked Name of person performing procedure: Andre Continuous monitoring Was continuous monitoring of O2 sat, B/P, environmental monitoring specialist, recorded every 15 minutes?: Yes Procedure Checklist: sterile prep, needles and gloves Ultrasound guided. Images saved: Yes Medications given in 5ml increments after negative aspiration: Marcaine %: 0.25 mL: 30 Needle gauge: 20 and Exparel mL: 20 Needle gauge: 20 Patient tolerated procedure well: Yes Block Charges Block Charge (with Pro Fee): Intercostal Nerve Block Use of Ultrasound Machine for Block: Yes- US Guidance/pain block
--- NOTE | 2023-03-01 16:29 | W.ANESCHARGE ---
Anesthesia Charges Start Date/Time Anesthesia Start Date: 03/01/23 Anesthesia Start Time: 10:15 Stop Date/Time Anesthesia Stop Date: 03/01/23 Anesthesia Stop Time: 16:45
--- NOTE | 2023-03-01 16:46 | W.ANESCHARGE ---
Anesthesia Charges Start Date/Time Anesthesia Start Date: 03/01/23 Anesthesia Start Time: 10:15 Stop Date/Time Anesthesia Stop Date: 03/01/23 Anesthesia Stop Time: 16:45
--- NOTE | 2023-03-01 17:13 | PM.GSPRC ---
Operative Note Pre-op diagnosis: 1. 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 Rim enhancing 0.7 cm mass seen in the right breast on post treatment MRI Post-op diagnosis: Same Type of Procedure: 1. Bilateral nipple sparing mastectomy 2. Left axillary sentinel lymph node biopsy 3. Excision pre neoadjuvant biopsied left axillary node with preoperative wire localization 4. Right axillary sentinel lymph node biopsy 5. Removal bilateral breast implants Indications: The patient is a 42-year-old female who presented with a palpable left breast mass. Biopsy showed this to be invasive ductal carcinoma, ERPR negative, HER2 negative. An enlarged lymph node was also seen and biopsied which was positive for metastatic cancer. She then underwent neoadjuvant chemotherapy. She also underwent genetic testing which was negative. After discussion of surgical options she elected to proceed with bilateral mastectomy as well as reconstruction. She has a history of prior breast implants and the treatment decision made in conjunction with the plastic surgeon would be to proceed with delayed reconstruction with removal of the breast implants at the time of her mastectomy. Of note, her post treatment MRI was delayed secondary to illness. On the day of surgery the results showed that in the right breast there was a suspicious rim-enhancing mass. It seemed unlikely that she would developed a breast cancer during treatment, however the lesion did appear to be suspicious enough to warrant biopsy per the radiologist. The abnormal area was not seen on prior MRI, however it was felt by the radiologist that this was possibly secondary to the fact that the treatment effect made the lesion more visible after chemotherapy. Because this was discovered on the morning of surgery, I had a discussion with the patient regarding options. This included postponing surgery and proceeding with biopsy, operating on the left side only, removing the right breast and returning for repeat surgery if malignancy was found, though this would preclude ability to perform sentinel node biopsy if invasive cancer was found, or performing a sentinel lymph node biopsy on the right side. After weighing options, I recommended, and the patient agreed to perform a sentinel node biopsy on the right. Procedure Description: After discussion of risks and benefits, the patient was brought to the operating room and placed supine on the operating table. General anesthesia was induced. 1 hr prior to incision, radiotracer was injected into the dermis the left breast just above the areola. 10 min prior to the incision I injected 3 ml isosulfan blue dye into the dermis above the areola. This was massaged for 3 min. Once this was completed, the area was prepped and draped sterilely. A time-out was then completed. We began on the left side. A periareolar incision extending laterally was created. I began my dissection at the nipple-areolar complex. With great care I dissected the breast tissue away from the nipple, with care to avoid devascularization. A stitch was placed at the site of the nipple on the breast for frozen section. I then created my skin flaps. Care was taken to stay in the avascular plane between the breast tissue in the subcutaneous tissue. Dissection was taken superiorly to the clavicle, medially to the sternum and laterally to the latissimus. Inferiorly, I took great care not to thin this skin too much at the site of the patient's inframammary incision from her breast implant procedure. There was scar tissue noted here. The patient's breast implant capsule was encountered. This was incised laterally but left intact inferiorly at the inframammary fold. The breast implant was delivered from its capsule intact. This was sent to pathology. I then removed the breast from the chest wall, taking part of the implant capsule laterally as well as the pectoralis fascia. Once I reached the axilla, I noted that the wire which appeared to have been placed in the tumor had been pulled free. I dissected free the axillary tail and left the axillary lymph node wire in place. The specimen was marked with a stitch at the superior aspect. This was sent for specimen x-ray to see if the biopsy clip was present. The x-ray showed there was no clip in the specimen. The left breast was then sent for gross margins as well as frozen section of the nipple. Frozen section returned negative. The left breast did not show the biopsy site though there were possibly some chemotherapy changes. There was no obvious tumor bed. Unfortunately, also at this point the retraction had cause wire localizing the lymph node to pull in through the skin. I attempted to identify the wire by incising the clavipectoral fascia and entering the axilla. I dissected carefully in order to find the wire, however I was unable. I elected to ask x-ray to help identify the wire. The x-ray was brought into the field and a picture was taken. This showed the wire as well as the coil biopsy clip which had been placed into the mass. This was very lateral on the chest wall abutting the skin. Using the Neoprobe, I placed this in the axilla where there was a strong signal. I elected to begin the sentinel node biopsy and look for the wire. There was 1 node immediately visible. This was dissected free. This node was not blue, however it had a very weak signal with the Neoprobe. This was sent as sentinel lymph node 1. X-ray did not reveal a clip. Frozen section returned negative. The probe was placed back into the axilla. There was again a strong signal. At this point in the case, Dr. Alexis came in to assist. She provided exposure and retraction while I dissected the lymph nodes in the axilla. There was an area of matted nodes and fibrosis and scarring, this had a strong signal. There were at least 4 nodes clumped together. These were removed together and the signal measured 3000. This group of nodes was sent for x-ray. The node clip was present. They were then sent for frozen section. Frozen section did reveal the clip as well as no cancer cells present and chemotherapy effect present. There was still a signal in the axilla and 2 more small nodes were found and dissected free. One of these nodes was noted to be blue. These were sent for x-ray and frozen section. X-ray did not show any biopsy clip and frozen section was negative. At this point there were no further blue nodes, no further abnormal nodes and no further signal in the axilla. However, the wire was now visible and spotted by Dr. Alexis. This was present in an area of white fibrotic scar tissue abutting the skin. This corresponded to the area of the coil clip (which was the clip that was in the tumor original) noted on x-ray. Dr. Alexis provided retraction while I created a new plane just deep to the skin and excised a new superolateral margin of the breast, the clip was visually noted to be in the specimen. This was inked for margins and sent for x-ray which confirmed the presence of the coil clip. This was then sent to pathology. There was no residual tumor, only chemotherapy effect and therefore no frozen section was performed. Margins were felt to be negative. The wound was examined and hemostasis appeared to be excellent. Dirk was placed in the axilla. The breast implant capsule under the pectoralis muscle was left intact. Dr. Alexis then placed a 15 [place]ian Norm channel drain through a stab incision in the left lateral chest wall. This was position in the wound. She then closed the wound with 3-0 Vicryl dermal and 4-0 Monocryl running subcuticular suture. I then turned my attention to the right breast. The patient's prior inframammary incision was used. I incised this using a knife and took dissection down to the subcutaneous tissue using cautery. I stayed above the implant capsule, creating a subcutaneous plane and extending this superiorly towards the nipple. Once I reached the nipple areolar complex, I took great care to dissect the breast tissue and ducts away, leaving just enough tissue to avoid devascularizing the nipple. A double stitch was placed and at the area of the nipple for frozen section. I had difficulty accessing the superior aspect of the dissection because of the patient's implant. At this point I elected to incise the capsule and remove it. I did this on the lateral aspect of the capsule. This was then sent to pathology. Once the implant was removed, I was then able to continue my dissection superiorly toward clavicle, stopping just short of the patient's right IJ port. The axillary tail was difficult to reach from the inframammary incision. Therefore, at the sternum or the medial aspect of dissection I took my dissection down to the pectoralis muscle and began removing the breast from the pectoralis, taking the fascia with. I did this inferiorly as well. Once this was free I was able to then retract the breast inferiorly through the incision, better exposing the axillary tail of the breast to complete the superior dissection. Laterally I took my dissection to the latissimus. The breast was then removed completely from the chest wall. A portion of capsule laterally was also taken. A marking stitch with a single michaels was placed superiorly as well. This was sent for pathology examination. There was no mass noted on initial view, but there was a benign cyst. The nipple was negative for malignancy on frozen section. Having had a discussion with the pathologist preoperatively about performing a sentinel node biopsy if the lesion in the breast was benign, it was felt that there was a chance that the initial intraoperative examination could miss a lesion and therefore I decided to proceed with the right axillary sentinel node biopsy as discussed. The probe was then brought into the field. I was able to perform the sentinel node biopsy through the inframammary incision. There was a strong signal in the axilla. I removed a lymph node at the end of a blue lymphatic channel. This node itself was not blue. It appeared to have a strong signal in vivo, however ex vivo it had a signal of only 27. The probe was placed back into the axilla. There was an area just adjacent to this node which appeared to be very strong. This node was excised and had an ex vivo signal of 3000. There was no additional signal in the right axilla. At this point the wound bed was examined. Hemostasis appeared excellent. Both lymph nodes were sent as sentinel lymph nodes for permanent section. There were no further blue nodes, signal or abnormal nodes noted. I 1st reapproximated the capsule at the inferior aspect of the rectus muscle which had been divided during the dissection. This was done with a running 2 0 Vicryl suture. Once this was done the wound bed was examined. Hemostasis appeared excellent. Dirk was placed in the wound. Similar to the other side did place a 15 [place]ian channeled Norm drain. This was done through a stab incision in the right lateral chest wall. The wound was then closed with 3-0 Vicryl dermal and 4-0 Monocryl running subcuticular suture. The skin flaps and nipple-areolar complex bilaterally appeared viable. Sterile dressings were applied. Instrument sponge and needle counts were correct. The patient was then woken and transported to the recovery area in stable condition. ? The patient tolerated the procedure well. Findings: Pathology findings: Specimen A: Left axillary sentinel node 1 sent for specimen x-ray and frozen section -x-ray showed no clip and frozen section showed no evidence of malignancy. Specimen C: Left breast. Sent for x-ray, gross margins and frozen section of the nipple area. X-ray showed no clip. There was treatment effect noted, however no clip and no tumor bed noted on gross examination. Frozen section of the terminal ducts at the nipple showed no evidence of malignancy Specimen D: Left axillary sentinel node 2 and additional nodes, sent for x-ray and frozen section. X-ray did show the biopsy clip. Frozen section did not show any residual malignancy. There was treatment effect and the biopsy clip was found on sectioning Specimen E: Axillary sentinel node 3/4 - sent for x-ray and frozen section. No biopsy clip was seen on x-ray, frozen section did not demonstrate any evidence of malignancy. Specimen F: Left breast superolateral margin re-excision, sent for x-ray and gross margins. X-ray did show the biopsy clip. Gross examination did not show any residual tumor. Specimen H: Right breast - frozen section of the terminal ducts a not reveal malignancy. Additionally, a benign cyst was found. No additional lesions were seen. Radiographic findings: Specimen x-ray 1: Left axillary [place] lymph node 1 (A), no clip seen Specimen x-ray 2: Mastectomy specimen (C), no clip seen Specimen x-ray 3: Left axillary sentinel lymph node and additional lymph nodes (D), clip seen Specimen x-ray 4: Left Axillary [place] lymph nodes 3/4 (E) Specimen X-ray 5: Re-excision superior lateral breast margin with wire localization (F), clip seen Anesthesia: GETA Surgeon: Sushma Shannon MD Co-Surgeon: Mary Alexis M.D. assisted a portion of the procedure Estimated blood loss (mL): 100 Additional Specimen Information: Specimen A: Left axillary sentinel node 1 sent for specimen x-ray and frozen section Specimen B: Left breast implant Specimen C: Left breast, single stitch superior, double at the nipple. Sent for x-ray, gross margins and frozen section of the nipple area. Specimen D: Left axillary sentinel node 2. And additional nodes, sent for x-ray and frozen section Specimen E: Axillary sentinel node 3/4 - sent for x-ray and frozen section Specimen F: Left breast superolateral margin re-excision, sent for x-ray and gross margins Specimen G: Right breast implant Specimen H: Right breast, double stitch at the nipple, single stitch superior, sent for frozen section of nipple and any gross lesions Specimen on I: Right axillary sentinel node, sent for permanent section Condition: stable Disposition: PACU Date of procedure: 03/01/23
--- NOTE | 2023-03-01 19:18 | P.EN_ITS ---
Chart Event Note Chart Event Note: Came to see patient for a postoperative visit. I did place her on telemetry because she had been hypotensive preop and stated that she had had lightheadedness previously. Nursing noted prolonged QT interval. EKG confirms this. QT is 0.56 seconds, EKG shows this to be 513 milliseconds. Reviewed niall ruth's medications. I reviewed her [facility] chart as well. No prior EKG though she has had an echocardiogram. She is on several medications at home that can cause prolonged QT. She states that she has not taken them recently. These are all on hold. As part of her anesthesia medications, Zofran, and Haldol were given. Demerol was ordered however cannot find evidence that it was administered. Patient heart rate is 62 and regular. Blood pressure varies, and has been in the 80s systolic, however currently 101/49. She is anemic at baseline with a hemoglobin of 9.8. This is from her chemotherapy. Blood loss intraoperatively was 100 mL. Dressings taken down and No evidence of hematoma. Minimal bloody output from bilateral drains. Patient denies pain, and dizziness. She does appear pale, this is her baseline. Will check calcium, magnesium, potassium, hemoglobin as well as troponin and type and screen. Continue weigher and crusher. Recheck EKG in the morning. Have held all QT prolonging medications. ANA
--- NOTE | 2023-03-01 19:29 | PC.NURSE ---
PATIENT RETURNED FROM SURGERY DROWSY. DENIED PAIN OR N/V. DRESSING TO CHEST CDI AND UCHE x2 DRAINING BLOODY OUTPUT. PATIENT PALE. CARDIAC MONITORING APPLIED PER MD ORDER AND PATIENT NOTED TO HAVE PROLONGED QT. DR. FIELDS INITIALLY NOTIFIED AND ORDER FOR EKG COMPLETED. DR. MCPHERSON ON FLOOR TO UPDATE PATIENT AND NOTIFIED OF EKG. LABS ORDERED AND MEDS DC'D PER MD INSTRUCTION..
[2023-03-01 19:40] LABS: Chloride* 106 mmol/L (96-114); Potassium* 3.8 mmol/L (3.6-5.1); Sodium* 135 mmol/L (135-149)
[2023-03-01 19:43] LABS: Anion Gap 9 mEq/L (7-15); Blood Urea Nitrogen* 10 mg/dL (5-24); Calcium* 8.5 mg/dL (8.4-10.6); Carbon Dioxide* 20 mmol/L (20-32); Creatinine* 0.8 mg/dL (0.5-1.5); Estimated Glomerular Filt Rate 95 ml/min; Glucose* 118 mg/dL (60-115)
[2023-03-01 19:44] LABS: Calcium* 8.5 mg/dL (8.4-10.6); Magnesium* 1.8 mg/dL (1.5-2.6)
[2023-03-01 19:54] LABS: Hemoglobin* 10.3 gm/dL (12.0-16.0)
[2023-03-01] MEDS: LACTATED RINGERS 1000 ML 1,000 ML 125 ML IV (19:54)
[2023-03-01 19:55] LABS: Troponin I* 0.03 ng/mL (0.01-0.04)
[2023-03-02 03:05] VITALS: BP 87/37; PULSE 84; RESP 16; TEMP 36.7; O2SAT 99
[2023-03-02 03:10] VITALS: BP 89/51
--- NOTE | 2023-03-02 03:26 | PC.NURSE ---
Addendum entered by Erica Wheatley RN 03/02/23 04:02: Call had been placed to internal combustion engine assembler MD Wen per director of marketing operations though staff were informed to update general surgeon internal combustion engine assembler which was then completed. Original Note: Supine Blood pressures of 87/37 and 84/39 noted, sitting B/P of 79/52 noted with 0300 vital signs check. Repeat supine B/P of 89/51 noted upon pt returning to supine position after sitting at side of bed. P 84, R 16, T 98.1 oral and O2 sat 99% on RA. Pt denies N/V, pain, dizziness and lightheadedness when asked. Pt remains on LR at 125 mL/hr with po fluids encouraged. Call placed to internal combustion engine assembler MD Wen- awaiting return phone call at this time. Pt and partner aware that nursing staff have contacted .
[2023-03-02] MEDS: LACTATED RINGERS 1000 ML 1,000 ML 125 ML IV (03:58)
--- NOTE | 2023-03-02 04:02 | PC.NURSE ---
[employer] updated ergonomics consultant MD for General Surgery Dr. Alexis. MD was updated regarding B/P values and pt being asymptomatic along with output values via UCHE drains. No new orders given per Dr. Alexis.
[2023-03-02] MEDS: BENZOCAINE/MENTHOL 1 EACH LOZENGE MUCOUS MEM (06:37)
--- NOTE | 2023-03-02 06:54 | PC.NURSE ---
Shift note [id number]: Pt has been alert & oriented x 4 and is tolerating po fluids and food of peanut butter toast. Partner Luis Alfredo has spent the night in room with pt. Pt continues on IV fluids of LR at 125 mL/hr. Pt has bilateral UCHE drains with bloody drainage noted which is decreasing in output with each emptying. Staff spent time with pt and partner providing education of stripping tubing of UCHE drains and emptying, including ensuring squeezing of bulb after stripped and emptied to ensure suctioning effect. JOHN wrap binder in place to trunk covering mastectomy incisional area which is noted to be C/D/I. B/P trends low at pt?s baseline- B/P noted to be as low as 87/37 and 84/39 with 0300 VS check with pt noted to be asymptomatic when assessed. Dr. Alexis was updated and did not give any new orders.?Pt has been afebrile throughout the shift. She transferred well to and from bedside commode with assist of 1 and GB. Pt has been denying pain and?N/V when asked throughout the shift. ?
[2023-03-02 07:00] VITALS: BP 93/45; PULSE 80; RESP 16; TEMP 37.2; O2SAT 100
[2023-03-02 07:30] VITALS: PULSE 77; O2SAT 100
[2023-03-02 07:31] LABS: Hemoglobin* 8.3 gm/dL (12.0-16.0)
--- NOTE | 2023-03-02 11:01 | P.DS_ITS ---
DS: Providers Provider Date Seen: 03/02/23 Primary care physician: Ignacia Madsen PA-C Attending Physician on discharge: Sushma Shannon MD DS: Summary Hospital Course Hospital Course: Patient was admitted postoperatively after undergoing a bilateral mastectomy with bilateral sentinel node biopsy. She did have some mild hypotension postoperatively, but remained asymptomatic. She does report some a dizziness and there recent past with standing, but denies any episodes of loss of consciousness. An EKG was obtained, which demonstrates a prolonged QTC inte rval. She is on several medications, which could cause this. Please see discharge medications regarding what was held at the time of discharge. Patient was instructed to follow up with her primary care provider, who may consider consultation to cardiology. Postoperatively she did great. Pain was well controlled. Drain output was minimal. She had no episodes of dizziness or symptomatic hypotension while inpatient. At the time of discharge she was tolerating a regular diet, ambulating without difficulty. Able to care for her dressings and drains independently and pain was well controlled. She will be following up with Dr. Shannon on 03/13/2023. Time Spent with Patient Time attestation: Total time spent providing and/or coordinating discharge services: Exam Narrative: Exam Narrative: General: Alert and oriented, no acute distress. Nontoxic Chest: Jagjit wrap in place. Dressings taking down with flaps viable in appearance, very minimal ecchymoses. Incisions with Steri-Strips in place cl lauren/dry/intact. Bilateral drains with minimal serosanguineous fluid. Const: Vital Signs, click to edit/add: Vital Signs - 24 hr 03/01/23 16:41 03/01/23 16:46 03/01/23 16:51 Temperature 98.5 F Pulse Rate 101 H 82 76 Pulse Rate [Pulse Oximeter] Respiratory Rate 16 16 16 Blood Pressure 100/62 93/67 95/56 L Blood Pressure [Ri ght Arm] Pulse Oximetry 98 98 98 Oxygen Delivery Me thod Room Air Room Air Room Air 03/01/23 16:56 03/01/23 17:01 03/01/23 17:06 Temperature Pulse Rate 73 70 68 Pulse Rate [Pulse Oximeter] Respiratory Rate 16 16 16 Blood Pressure 93/53 L 92/53 L 93/52 L Blood Pressure [Ri ght Arm] Pulse Oximetry 98 98 98 Oxygen Delivery Me thod Room Air Room Air Room Air 03/01/23 17:11 03/01/23 17:16 03/01/23 17:30 Temperature 98.0 F 75 F L Pulse Rate 72 72 62 Pulse Rate [Pulse Oximeter] Respiratory Rate 16 16 16 Blood Pressure 92/57 L 92/57 L Blood Pressure [Ri ght Arm] 95/42 L Pulse Oximetry 98 98 Oxygen Delivery Me thod Room Air Room Air Room Air 03/01/23 17:45 03/01/23 18:00 03/01/23 18:15 Temperature 97.3 F L 97.3 F L Pulse Rate Pulse Rate [Pulse Oximeter] 67 63 70 Respiratory Rate 16 16 16 Blood Pressure Blood Pressure [Ri ght Arm] 101/49 L 91/50 L 89/49 L Pulse Oximetry 96 97 97 Oxygen Delivery Md thod Room Air Room Air Room Air 03/01/23 18:18 03/01/23 18:30 03/01/23 19:00 Temperature 97.0 F L Pulse Rate 62 Pulse Rate [Pulse Oximeter] 69 61 Respiratory Rate 16 16 Blood Pressure Blood Pressure [Ri ght Arm] 94/49 L 93/58 L Pulse Oximetry 97 99 Oxygen Delivery Md thod Room Air Room Air 03/01/23 19:23 03/01/23 20:30 03/01/23 21:30 Temperature 98.3 F 98.5 F Pulse Rate Pulse Rate [Pulse Oximeter] 70 72 71 Respiratory Rate 16 Blood Pressure Blood Pressure [Ri ght Arm] 96/49 L 94/49 L 96/57 L Pulse Oximetry 98 98 98 Oxygen Delivery Md thod Room Air Room Air Room Air 03/01/23 22:12 03/01/23 22:30 03/01/23 23:00 Temperature 98.3 F 98.3 F Pulse Rate 65 Pulse Rate [Pulse Oximeter] 72 86 Respiratory Rate 16 16 Blood Pressure Blood Pressure [Ri ght Arm] 98/52 L 96/50 L Pulse Oximetry 98 98 Oxygen Delivery Me thod Room Air Room Air 03/01/23 23:00 03/01/23 23:00 03/02/23 03:05 Temperature 98.1 F Pulse Rate Pulse Rate [Pulse Oximeter] 72 84 Respiratory Rate 16 16 Blood Pressure Blood Pressure [Ri ght Arm] 87/37 L Pulse Oximetry 98 99 Oxygen Delivery Me thod Room Air 03/02/23 03:10 03/02/23 07:00 03/02/23 07:00 Temperature 98.9 F Pulse Rate Pulse Rate [Pulse Oximeter] 80 80 Respiratory Rate 16 16 Blood Pressure Blood Pressure [Ri ght Arm] 89/51 L 93/45 L Pulse Oximetry 100 Oxygen Delivery Me thod Room Air 03/02/23 07:30 03/02/23 07:30 Temperature Pulse Rate 77 Pulse Rate [Pulse Oximeter] Respiratory Rate Blood Pressure Blood Pressure [Ri ght Arm] Pulse Oximetry 100 Oxygen Delivery Me thod DS: Data Data Completed and Pending Labs on day of discharge: Labs from last 24 hours 03/02/23 03/01/23 03/01/23 07:16 19:11 19:11 Hgb 8.3 L 10.3 L Sodium 135 Potassium 3.8 Chloride 106 Carbon Dioxide 20 Anion Gap 9 BUN 10 Creatinine 0.8 Estimated Creat Clear 94.00 Estimated GFR 95 Glucose 118 H Calcium 8.5 8.5 Magnesium 1.8 Troponin I 0.03 Blood Type O Positive Antibody Screen NEGATIVE Discharge Plan Discharge Disposition: Home, Self-Care Discharging Surgeon: Sushma Shannon Follow-Up Appointment: Make appt for 03/13 at [facility] Prescriptions: New hydrocodone-acetaminophen 5-325 mg Tablet 1 - 2 tab PO Q6H PRN (Reason: Pain) Qty: 20 0RF Continued acetaminophen [Tylenol Extra Strength] 500 mg tablet 1,000 mg PO Q6H PRN diphenhydramine-acetaminophen [Tylenol PM Extra Strength] 25-500 mg tablet 2 tab PO QHS PRN bimatoprost [Latisse] 0.03 % drops with applicator 1 applic topical QHS PRN Rx Instructions: 1 drop applied evenly on the skin of the upper eyelid at base of eyelashes once daily at bedtime; repeat procedure for second eye. Low-Ogestrel (28) 0.3-30 mg-mcg tablet 1 tab PO DAILY ibuprofen 600 mg tablet 600 mg PO Q8H PRN Excedrin Extra Strength 250-250-65 mg tablet 2 tab PO Q6H PRN Hold Instructions: not taking now cholecalciferol (vitamin D3) 25 mcg (1,000 unit) capsule 25 mcg PO DAILY Lactobacillus acidophilus 0.5 mg (100 million cell) Tablet 1 mg PO TIDWM 30 Days Qty: 270 0RF Rx Instructions: May substitute with another appropriate probiotic, follow label directions, take for an entire month. sennosides-docusate sodium [Stool Softener-Laxative] 8.6-50 mg Tablet 1 tab PO BID Qty: 30 0RF Rx Instructions: Hold for loose stools Held escitalopram oxalate 10 mg tablet 10 mg PO DAILY Hold Instructions: Resume on 03/12/23. Hold until you follow up with your PCP Discontinued mirtazapine 7.5 mg tablet 7.5 mg PO DAILY PRN prochlorperazine maleate [Compazine] 5 mg tablet 5 mg PO Q8-12H PRN (Reason: nausea and vomiting) Qty: 60 1RF olanzapine 2.5 mg tablet 2.5 mg PO QHS Qty: 30 1RF ondansetron 4 mg Tablet,Disintegrating 4 mg PO Q4H PRNQty: 20 1RF Activity Level: No strenuous activity Activity Detail: No lifting more than 20 pounds for 2 weeks Discharge Diet: Regular Patient Instructions: Surgical Site Infections (DC), Mastectomy (DC) Additional Instructions: Wound care: Your sutures are under the skin and will dissolve over time. Leave steri strips (white bandages) over incisions until they fall off (or remove after 7 days). Empty and record drain output daily. Record each drain output separately. Bring this record to your follow-up appointment. Strip drains as instructed by nursing. Drains will be removed when you have had less than 30 mL per drain per day for 2 consecutive days. OK to shower tomorrow but avoid bathing, soaking or swimming for 2 weeks. Cover drain sites with Tegaderm or Saran wrap. Pat the incisions dry. Apply ice to the area as needed for swelling. It is also OK to use a heating pad if this provides more comfort to you. Pain control: You were prescribed a pain medication. This medication contains acetaminophen (Tylenol). If you are taking your prescribed pain pills 4 times daily, do not take additional acetaminophen. As your pain improves, you can try taking acetaminophen instead of the prescribed pain pill. It is ok to take Ibuprofen or Naproxen (per directions on packaging). This medication helps with inflammation and swelling. Take an tifo-awx-wpjhoom stool softener while you are taking prescribed pain medications to help alleviate constipation. I recommend Senna and/or Colace. Take as directed on package. If you have not had a bowel movement in 3 days, try taking Miralax as directed on the package. All of these are available over the counter. Follow-up You were found to have something called a prolonged QT interval. This is an abnormality of your heart rate. Most commonly this is caused by medications. All medications that can cause this condition have been stopped, including your home medications. I recommend that you follow-up with your primary care doctor next week. An EKG could be repeated and if normal, medications could be restarted. If it remains abnormal, then they may consider cardiology referral. Of note, this can cause dizziness. Follow up with Dr. Shannon on 03/13 - if drain output is less than 30 mL per day for 2 consecutive days sooner than this, please call the breast healthcare technician at [phone]. Please call if you are experiencing severe pain, nausea, vomiting, difficulty urinating, fever or have not had bowel movement in 4 days after surgery. Forms: Work/School Release Follow-up: Ignacia Madsen PA-C [Primary Care Provider] - Sushma Shannon MD [Staff Physician] - Discharge Orders: Discharge Order (Routine); Ordered 03/02/23 Ordered By: Mary Alexis
[2023-03-02] MEDS: ACETAMINOPHEN 325 MG TABLET 650 MG PO (11:17)
[2023-03-02] MEDS: LACTOBACILLUS ACIDOPHILUS 1 TABLET 1 TAB PO (11:17)
--- NOTE | 2023-03-02 13:08 | PM.GSPRC ---
Operative Note Pre-op diagnosis: 1. Invasive ductal carcinoma of the left breast, triple negative, metastatic to left axillary lymph nodes, status post neoadjuvant chemotherapy 2. Breast mass in the right breast Post-op diagnosis: Same Type of Procedure: 1. Bilateral nipple sparing mastectomy 2. Left axillary sentinel lymph node biopsy 3. Excision of wire localized left axillary node 4. Right axillary sentinel lymph node biopsy 5. Removal bilateral breast implants Indications: I helped assist with the case given the complexity and difficulty. Please see Dr. Shannon note for full consultation and indications for the above procedures. Procedure Description: I came into the operating room once the procedure was underway to help assist with exposure and retraction. I helped provide exposure into the axilla, were Dr. Shannon identified and dissected out matted nodes and fibrotic/scarred tissue. The nodes were removed in each measured with the gamma probe. The specimen was sent to Radiology, where node clip was present. It was then sent to pathology, which revealed no cancer cells present and chemotherapy effect present in the clipped node. There continued to be a strong signal in the axilla, so I again helped with retraction and dissection was Dr. Shannon removed 2 additional small nodes. At this point there were no further identified blue or hot nodes within the left axilla. During dissection retraction I was able to visualize the wire within the left axilla, which had previously retracted into the tissue.. The wire did correspond with an area of white fibrotic scar tissue, which was very close to the overlying dermis. I continued to provide retraction while Dr. Shannon created a plane just deep to the skin and excised a new superior lateral margin of the breast. The clip was noted in the specimen itself and on Radiology. This corresponded with the original tumor. On evaluation by pathology there was no evidence of residual tumor, only chemotherapy effect seen. Dr. Shannon then proceeded on to the mastectomy portion of the right breast with sentinel lymph node biopsy. I assured hemostasis within the left operative field. Dirk was placed in the axilla. A 15 German Norm channel drain was placed in the left lateral chest wall. I then closed the wound with 3-0 Vicryl interrupted dermal stitches and a running 4-0 Monocryl subcut[address] stitch. While Dr. Shannon worked on the right breast I helped with retraction. Please see her note for amount of dissection and removal of the underlying implant. The specimen was then marked and sent to pathology. The breast mass identified in the right breast was found to be a ruptured cyst. The decision was made however to proceed with the sentinel lymph node biopsy, given the risk of missed identification or additional atypical cells in the remaining breast tissue. The axilla was difficult to reach due to the inframammary incision made. Assisted with retraction while Dr. Shannon used the gamma probe to identify to right axillary nodes, which were sent for permanent section. At this point in the procedure left the operating room and allowed Dr. Shannon to finish closing the incision on the right side and placement of the drain. Please see her operative report for more information. Findings: Pathology findings: Specimen A: Left axillary sentinel node 1 sent for specimen x-ray and frozen section -x-ray showed no clip and frozen section showed no evidence of malignancy. Specimen C: Left breast. Sent for x-ray, gross margins and frozen section of the nipple area. X-ray showed no clip. There was treatment effect noted, however no clip and no tumor bed noted on gross examination. Frozen section of the terminal ducts at the nipple showed no evidence of malignancy Specimen D: Left axillary sentinel node 2 and additional nodes, sent for x-ray and frozen section. X-ray did show the biopsy clip. Frozen section did not show any residual malignancy. There was treatment effect and the biopsy clip was found on sectioning Specimen E: Axillary sentinel node 3/4 - sent for x-ray and frozen section. No biopsy clip was seen on x-ray, frozen section did not demonstrate any evidence of malignancy. Specimen F: Left breast superolateral margin re-excision, sent for x-ray and gross margins. X-ray did show the biopsy clip. Gross examination did not show any residual tumor. Specimen H: Right breast - frozen section of the terminal ducts a not reveal malignancy. Additionally, a benign cyst was found. No additional lesions were seen. Radiographic findings: Specimen x-ray 1: Left axillary [place] lymph node 1 (A), no clip seen Specimen x-ray 2: Mastectomy specimen (C), no clip seen Specimen x-ray 3: Left axillary sentinel lymph node and additional lymph nodes (D), clip seen Specimen x-ray 4: Left Axillary [place] lymph nodes 3/4 (E) Specimen X-ray 5: Re-excision superior lateral breast margin with wire localization (F), clip seen Anesthesia: GETA Surgeon: Sushma Shannon MD Co-Surgeon: Mary Alexis MD Estimated blood loss (mL): 100 Additional Specimen Information: Please see above. Condition: stable Disposition: PACU Date of procedure: 03/02/23 [place] Node Biopsy for Breast Cancer Operation Performed with Curative Intent: Yes Tracers used to Identify sentinel nodes in the upfront surgery (non-neoadjuvant) setting: N/A Tracers used to identify sentinel nodes in the neoadjuvant setting: Dye, Radioactive Tracer and Clips & wire localization All nodes (colored or non-colored) present at the end of a dye filled lymphatic channel were removed: Yes All significantly radioactive nodes were removed: Yes All palpably suspicious nodes were removed: Yes Biopsy proven positive nodes marked with clips prior to chemotherapy were identified and removed: Yes
--- NOTE | 2023-03-02 13:20 | PC.NURSE ---
AFEBRILE. PATIENT DENIED PAIN. TOLERATING REGULAR DIET WITH NO C/O N/V. UP WITH SBA AND DENIED FEELING DIZZY OR LIGHTHEADED. PATIENT'S SO AND MOM IN ROOM AND ASSISTED WITH DRESSING CHANGE TO CHEST AND EDUCATION, DEMONSTRATION COMPLETED ON UC[facility] DRAIN CARE AND PATIENT'S MOM PROVIDED A RETURN DEMONSTRATION. PATIENT SENT HOME WITH EXTRA DRESSING CHANGE SUPPLIES. REVIEWED DC INSTRUCTIONS AND SALINE LOCK DC'D. PATIENT DC'D HOME VIA MOTHER.
--- NOTE | 2023-03-05 07:30 | P.GSOP_ITS ---
Operative Note Pre-op diagnosis: 1. 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 Rim enhancing 0.7 cm mass seen in the right breast on post treatment MRI Post-op diagnosis: same Type of Procedure: 1. Bilateral nipple sparing mastectomy 2. Left axillary sentinel lymph node biopsy 3. Excision pre neoadjuvant biopsied left axillary node with preoperative wire localization 4. Right axillary sentinel lymph node biopsy 5. Removal bilateral breast implants Indications: The patient is a 42-year-old female who presented with a palpable left breast mass. Biopsy showed this to be invasive ductal carcinoma, ERPR negative, HER2 negative. An enlarged lymph node was also seen and biopsied which was positive for metastatic cancer. She then underwent neoadjuvant chemotherapy. She also underwent genetic testing which was negative. After discussion of surgical options she elected to proceed with bilateral mastectomy as well as reconstruction. She has a history of prior breast implants and the treatment decision made in conjunction with the plastic surgeon would be to proceed with delayed reconstruction with removal of the breast implants at the time of her mastectomy. Of note, her post treatment MRI was delayed secondary to illness. On the day of surgery the results showed that in the right breast there was a suspicious rim- enhancing mass. It seemed unlikely that she would developed a breast cancer during treatment, however the lesion did appear to be suspicious enough to warra nt biopsy per the radiologist. The abnormal area was not seen on prior MRI, however it was felt by the radiologist that this was possibly secondary to the fact that the treatment effect made the lesion more visible after chemotherapy. Because this was discovered on the morning of surgery, I had a discussion with the patient regarding options. This included postponing surgery and proceeding with biopsy, operating on the left side only, removing the right breast and returning for repeat surgery if malignancy was found, though this would preclude ability to perform sentinel node biopsy if invasive cancer was found, or performing a sentinel lymph node biopsy on the right side. After weighing options, I recommended, and the patient agreed to perform a sentinel node biopsy on the [facility] Procedure Description: After discussion of risks and benefits, the patient was brought to the operating room and placed supine on the operating table. General anesthesia was induced. 1 hr prior to incision, radiotracer was injected into the dermis of the left breast just above the areola. 10 min prior to the incision I injected 3 ml isosulfan blue dye into the dermis above the areola. This was massaged for 3 min. Additionally, radiotracer was injected into the dermis of the right breast just above the areola. This was done intraoperatively, but greater than 1 hour before the right-sided mastectomy was commenced. Similarly, 10 minutes prior to incision on the right breast, blue dye was injected into the dermis above the nipple-areolar complex and massaged for 3 minutes. Once this was completed, the area was prepped and draped sterilely. A time-out was then completed. We began on the left side. A periareolar incision extending laterally was created. I began my dissection at the nipple-areolar complex. With great care I dissected the breast tissue away from the nipple, with care to avoid devascularization. A stitch was placed at the site of the nipple on the breast for frozen section. I then created my skin flaps. Care was taken to stay in the avascular plane between the breast tissue in the subcutaneous tissue. Dissection was taken superiorly to the clavicle, medially to the sternum and laterally to the latissimus. Inferiorly, I took great care not to thin this skin too much at the site of the patient's inframammary incision from her breast implant procedure. There was scar tissue noted here. The patient's breast implant capsule was encountered. This was incised laterally but left intact inferiorly at the inframammary fold. The breast implant was delivered from its capsule intact. This was sent to pathology. I then removed the breast from the chest wall, taking part of the implant capsule laterally as well as the pectoralis fascia. Once I reached the axilla, I noted that the wire which appeared to have been placed in the tumor had been pulled free. I dissected free the axillary tail and left the axillary lymph node wire in place. The specimen was marked with a stitch at the superior aspect. This was sent for specimen x-ray to see if the biopsy clip was present. The x-ray showed there was no clip in the specimen. The left breast was then sent for gross margins as well as frozen section of the nipple. Frozen section returned negative. The left breast did not show the biopsy site though there were possibly some chemotherapy changes. There was no obvious tumor bed. Unfortunately, also at this point the retraction had cause wire localizing the lymph node to pull in through the skin. I attempted to identify the wire by incising the clavipectoral fascia and entering the axilla. I dissected carefully in order to find the wire, however I was unable. I elected to ask x- ray to help identify the wire. The x-ray was brought into the field and a picture was taken. This showed the wire as well as the coil biopsy clip which had been placed into the mass. This was very lateral on the chest wall abutting the skin. Using the Neoprobe, I placed this in the axilla where there was a strong signal. I elected to begin the sentinel node biopsy and look for the wire. There was 1 node immediately visible. This was dissected free. This node was not blue, however it had a very weak signal with the Neoprobe. This was sent as sentinel lymph node 1. X-ray did not reveal a clip. Frozen section returned negative. The probe was placed back into the axilla. There was again a strong signal. At this point in the case, Dr. Alexis came in to assist. She provided exposure and retraction while I dissected the lymph nodes in the axilla. There was an area of matted nodes and fibrosis and scarring, this had a strong signal. There were at least 4 nodes clumped together. These were removed together and the signal measured 3000. This group of nodes was sent for x-ray. The node clip was present. They were then sent for frozen section. Frozen section did reveal the clip as well as no cancer cells present and chemotherapy effect present. There was still a signal in the axilla and 2 more small nodes were found and dissected free. One of these nodes was noted to be dark in color. These were sent for x-ray and frozen section. X-ray did not show any biopsy clip and frozen section was negative. At this point there were no further blue nodes, no further abnormal nodes and no further signal in the axilla. However, the wire was now visible and spotted by Dr. Alexis. This was present in an area of white fibrotic scar tissue abutting the skin. This corresponded to the area of the coil clip (which was the clip that was in the tumor originally) noted on x-ray. Dr. Alexis provided retraction while I created a new plane just deep to the skin and excised a new superolateral margin of the breast, the clip was visually noted to be in the specimen. This was inked for margins and sent for x-ray which confirmed the presence of the coil clip. This was then sent to pathology. Pathology felt there was no obvious residual tumor, only fibrosis and chemotherapy effect and therefore no frozen section was performed. Margins were felt to be negative. The wound was examined and hemostasis appeared to be excellent. Dirk was placed in the axilla. The breast implant capsule under the pectoralis muscle was left intact. Dr. Alexis then placed a 15 Bulgarian Norm channel drain through a stab incision in the left lateral chest wall. This was position in the wound. She then closed the wound with 3-0 Vicryl dermal and 4-0 Monocryl running subcuticular suture. I then turned my attention to the right breast. The patient's prior inframammary incision was used. I incised this using a knife and took dissection down to the subcutaneous tissue using cautery. I stayed above the implant capsule, creating a subcutaneous plane and extending this superiorly towards the nipple. Once I reached the nipple areolar complex, I took great care to dissect the breast tissue and ducts away, leaving just enough tissue to avoid devascularizing the nipple. A double stitch was placed and at the area of the nipple for frozen section. I had difficulty accessing the superior aspect of the dissection because of the patient's implant. At this point I elected to incise the capsule and remove it. I did this on the lateral aspect of the capsule. This was then sent to pathology. Once the implant was removed, I was then able to continue my dissection superiorly toward clavicle, stopping just short of the patient's right IJ port. The axillary tail was difficult to reach from the inframammary incision. Therefore, at the sternum or the medial aspect of dissection I took my dissection down to the pectoralis muscle and began removing the breast from the pectoralis, taking the fascia with. I did this inferiorly as well. Once this was free I was able to then retract the breast inferiorly through the incision, better exposing the axillary tail of the breast to complete the superior dissection. Laterally I took my dissection to the latissimus. The breast was then removed completely from the chest wall. A portion of capsule laterally was also taken. A marking stitch with a single tail was placed superiorly as well. This was sent for pathology examination. There was no mass noted on initial view, but there was a benign cyst. The nipple was negative for malignancy on frozen section. Having had a discussion with the pathologist preoperatively about performing a sentinel node biopsy if the lesion in the breast was benign, it was felt that there was a chance that the initial intraoperative examination could miss a small lesion and therefore I decided to proceed with the right axillary sentinel node biopsy as discussed. The probe was then brought into the field. I was able to perform the sentinel node biopsy through the inframammary incision. There was a strong signal in the axilla. I removed a lymph node at the end of a blue lymphatic channel. This node itself was not blue. It appeared to have a strong signal in vivo, however ex vivo it had a signal of only 27. The probe was placed back into the axilla. There was an area just adjacent to this node which appeared to be very strong. This node was excised and had an ex vivo signal of 3000. There was no additional signal in the right axilla. At this point the wound bed was examine d. Hemostasis appeared excellent. Both lymph nodes were sent as sentinel lymph nodes for permanent section. There were no further blue nodes, signal or abnormal nodes noted. I 1st reapproximated the capsule at the inferior aspect of the rectus muscle which had been divided during the dissection. This was done with a running 2 0 Vicryl suture. Once this was done the wound bed was examined. Hemostasis appeared excellent. Dirk was placed in the wound. Similar to the other side did place a 15 Bulgarian channeled Norm drain. This was done through a stab incision in the right lateral chest wall. The wound was then closed with 3-0 Vicryl dermal and 4-0 Monocryl running subcuticular suture. The skin flaps and nipple-areolar complex bilaterally appeared viable. Sterile dressings were applied. Instrument sponge and needle counts were correct. The patient was then woken and transported to the recovery area in stable condition. The patient tolerated the procedure well. Findings: Pathology findings: Specimen A: Left axillary sentinel node 1 sent for specimen x-ray and frozen section -x-ray showed no clip and frozen section showed no evidence of malignancy. Specimen C: Left breast. Sent for x-ray, gross margins and frozen section of the nipple area. X-ray showed no clip. There was treatment effect noted, however no clip and no tumor bed noted on gross examination. Frozen section of the terminal ducts at the nipple showed no evidence of malignancy Specimen D: Left axillary sentinel node 2 and additional nodes, sent for x-ray and frozen section. X-ray did show the biopsy clip. Frozen section did not show any residual malignancy. There was treatment effect and the biopsy clip was found on sectioning Specimen E: Axillary sentinel node 3/4 - sent for x-ray and frozen section. No biopsy clip was seen on x-ray, frozen section did not demonstrate any evidence of malignancy. Specimen F: Left breast superolateral margin re-excision, sent for x-ray and gross margins. X-ray did show the biopsy clip. Gross examination did not show any residual tumor. Specimen H: Right breast - frozen section of the terminal ducts a not reveal malignancy. Additionally, a benign cyst was found. No additional lesions were seen. Radiographic findings: Specimen x-ray 1: Left axillary [place] lymph node 1 (A), no clip seen Specimen x-ray 2: Mastectomy specimen (C), no clip seen Specimen x-ray 3: Left axillary sentinel lymph node and additional lymph nodes (D), clip seen Specimen x-ray 4: Left Axillary [place] lymph nodes 3/4 (E) Specimen X-ray 5: Re-excision superior lateral breast margin with wire localization (F), clip seen Anesthesia: GETA Surgeon: Sushma Shannon MD Co-Surgeon: Dr. Mary Alexis Estimated blood loss (mL): 100 Specimen: Other Additional Specimen Information: Specimen A: Left axillary sentinel node 1 sent for specimen x-ray and frozen section Specimen B: Left breast implant Specimen C: Left breast, single stitch superior, double at the nipple. Sent for x-ray, gross margins and frozen section of the nipple area. Specimen D: Left axillary sentinel node 2. And additional nodes, sent for x-ray and frozen section Specimen E: Axillary sentinel node 3/4 - sent for x-ray and frozen section Specimen F: Left breast superolateral margin re-excision, sent for x-ray and gross margins Specimen G: Right breast implant Specimen H: Right breast, double stitch at the nipple, single stitch superior, sent for frozen section of nipple and any gross lesions Specimen on I: Right axillary sentinel node, sent for permanent section Condition: stable Disposition: PACU Date of procedure: 03/01/23 [place] Node Biopsy for Breast Cancer Operation Performed with Curative Intent: Yes Tracers used to Identify sentinel nodes in the upfront surgery (non-neoadjuvant) setting: Dye and Radioactive Tracer Tracers used to identify sentinel nodes in the neoadjuvant setting: Dye, Radioactive Tracer and Clips & wire localization All nodes (colored or non-colored) present at the end of a dye filled lymphatic channel were removed: Yes All significantly radioactive nodes were removed: Yes All palpably suspicious nodes were removed: Yes Biopsy proven positive nodes marked with clips prior to chemotherapy were identified and removed: Yes
== END 2023-03-02 12:30 | disposition home or self-care (01) ==
LOC: OR 06:40 → MEDSURG 06:42
PROVIDERS: Anesthesiology; PCP Student in an Organized Health Care Education/Training Program; Visit Provider Surgery
PROC: (CPT 19303; principal; 2023-03-01 09:00)
DX: C50.912 Malignant neoplasm of unspecified site of left female breast (principal); C77.3 Secondary and unspecified malignant neoplasm of axilla and upper limb lymph nodes; Z17.1 Estrogen receptor negative status [ER-]; N60.01 Solitary cyst of right breast; G89.18 Other acute postprocedural pain; I95.9 Hypotension, unspecified; R94.31 Abnormal electrocardiogram [ECG] [EKG]
CPT/HCPCS: 19303; 38500; 19328; 01610; 10035; 10036; 36415; 38792; 64420; 64421; 71045; 76942; 77065; 80048; 81025; 82310; 83735; 84484; 85018; 86850; 86900; 86901; 88300; 88307; 93005; A9270; A9541; C1769; C9290; J0330; J0665; J0690; J1100; J1200; J1885; J2250; J2371; J2405; J2704; J3010; J7120

== ENCOUNTER 2023-06-07 08:46 | Outpatient (CLI) | payer BC, SELFPAY ==
--- NOTE | 2023-06-07 09:00 | CT_ITS ---
Patient: GALO ARREOLA Facility:?[facility] R[facility] Patient ID:?[id number] Site Patient ID:?[id number]. Site :?1980 Study:?CT-Chest/Abd/Pelvis W/ ISOVUE 370-06/07/2023 9:25:43 AM Ordering Physician:ALEJANDRO Final Report: Indication: MALIGNANT NEOPLASM OF UPPER-OUTER QUADRANT HX BREAST CANCER Technique: CT Chest/Abd/Pelvis W/ ISOVUE 370 Please note that all CT scans at this facility use dose modulation, iterative reconstruction, and/or weight-based dosing when appropriate to reduce radiation dose to as low as reasonably achievable. Comparison: 10/12/2022 Findings: In the chest, there are postoperative changes of bilateral mastectomy with implant reconstruction. Status post right axillary lymph node dissection. No enlarged intrathoracic lymph nodes. No fluid collection or abscess. Visualized thyroid is within normal limits. No fracture or intrinsic osseous lesion. Lungs are clear without infiltrate, edema, effusion or pneumothorax. No pulmonary nodule. In the abdomen, there is no intrahepatic mass gallbladder normal. No calcified gallstones. No biliary obstruction. Normal spleen. Adrenal glands normal. Normal kidneys. Pancreas is normal. No adenopathy. In the pelvis, the bladder is normal. Similar appearance of the uterus. Normal ovaries. No bowel obstruction or free air. No free fluid or abscess. Normal appendix. No pelvic or inguinal adenopathy. Normal osseous structures. Impression: No evidence of metastatic disease. Please note that all CT scans at this facility use dose modulation, iterative reconstruction, and/or weight-based dosing when appropriate to reduce radiation dose to as low as reasonably achievable. Dictated by Abel Quick MD @ 06/07/2023 11:23:47 AM Signed by:?Abel Quick MD @06/07/2023 11:23:47 AM (Electronic Signature)
--- NOTE | 2023-06-07 09:30 | NM_ITS ---
Patient: GALO ARREOLA Facility:?[facility] Patient ID:?[id number] Site Patient ID:?[id number]. Site :?1980 Study:?NM-Chest/Abd/Pelvis Procedure Whole Body Bone Scan-06/07/2023 1:25:38 PM Ordering Physician:BRENDA ALLEN Final Report: INDICATION: Breast cancer. TECHNIQUE: 25.7 millicuries of technetium-99m labeled MDP has been given intravenously. Three hour delayed whole-body bone scan images have been performed. FINDINGS: There is symmetric uptake along the spine and pelvis. Symmetric bilateral shoulder and sternoclavicular activity is noted. No significant abnormal uptake is seen associated with the ribs. No significant abnormal uptake is seen in the lower extremities or visualize upper extremities. There is bilateral function from both kidneys. IMPRESSION: No convincing evidence for skeletal metastases. Dictated by Maverick Vences MD @ 06/07/2023 2:50:26 PM Signed by:?Maverick Vences MD @06/07/2023 2:50:26 PM (Electronic Signature)
== END 2023-06-07 08:47 | disposition home or self-care (01) ==
LOC: CT 08:47
PROVIDERS: PCP Student in an Organized Health Care Education/Training Program; Visit Provider Internal Medicine Hematology & Oncology
DX: C50.412 Malignant neoplasm of upper-outer quadrant of left female breast (principal); Z17.1 Estrogen receptor negative status [ER-]
CPT/HCPCS: 71260; 74177; 78306; A9503; Q9967

== ENCOUNTER 2023-06-27 16:45 | Outpatient (RCR) | payer BC, SELFPAY ==
--- NOTE | 2023-02-14 13:44 | OT.OPLE ---
OT Outpatient Lymphedema Eval OT Outpatient Lymphedema Eval Start: 02/13/23 17:43 Freq: Status: Active Protocol: Document 02/14/23 12:34 AMB (Rec: 02/14/23 13:41 AMB [id number]) E-signed By Irene Baez, OTR/L, CLT, CLINICAL REHABILITATION COORDINATOR OT Outpatient Evaluation Details Type Type Eval Complexity Low OT OP Lymphedema Evaluation Insurance Information Insurance Information [facility] Insurance Information Comments 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 Pt states she is really not aware of what lymphedema is but understands that she is here today to learn about it. Pt has a 9 yo daughter, co- parents with the father. Pt also has a SO and feels she has good support. Medical History Medical History Cancer Treatment/Surgery Medical History Comments (copied from oncology chart) Oncology Hx: 41-year-old very pleasant lady with new diagnosis of left- sided T2N1/0 M0/x: stage IIB ( anatomic) or stage IIIB ( Prognostic) Left sided TN IDC grade III (ER-ve, WY-ve and HER2 1+ IHC). She 1st noticed a lump which was marble sized in December of 2021. She does not believe that it has grown over time. She does endorse that her biopsy contributed to some increase in the size of the lump/mass. She believes it has gotten harder since the biopsy. Otherwise denies any pain. No lumps or masses in the left axilla. No noticeable growth. No discharge. No skin or nipple involvement. Denies any bone pains. Denies any weight loss . Denies any chest pain shortness of breath nausea vomiting. Oncology history 07/19/22: US guided biopsy of left breast mass: the 2 o` clock position of the LEFT breast 8 cm from the nipple there is a lobulated hypoechoic solid mass measuring 1.6 x 1.8 x 2 cm. Left breast biopsy 8 cm from nipple ultrasound-guided core biopsy consistent with invasive ductal carcinoma with micro papillary features. Grade 3. Angiolymphatic invasion present. Associated DCIS absent. ER negative WY negative and HER2 negative. 07/19/22: Breast clip placement : MPRESSION: Biopsy clip as described. 07/27/22: MRI breast--> pending 07/31/2022: Comes in for breast oncology consultation at [facility] oncology 08/08/22: Bone scan and CT CAP: MARQUITA 08/10/22:Port Placement 08/17/22: starting chemo: carbo taxol keytruda (starts 08/17/22--> cy 1 dates: , 08/24/22, 09/05/22 (she has a trip 08/31/22- 09/04/22 for her day to [place] with Girlfriends.) 09/14/22: cy#2 Carbo Taxol Keytruda (09/14; 09/21; 09/28/22) 10/05/2022 cycle 3. Of carbo Taxol in Keytruda starting 10/12/22: [id number] Carbo Taxol, 10/19/2022: Taxol only Cycle 4: Day 04/02/2014: 2022, 11/02/2022, 11/09/2022: Taxol only 11/16/2022: Cycle 1 of Adriamycin Cytoxan and Keytruda 12/07/2022, cycle 2 of Adriamycin Cytoxan Keytruda scheduled 01/08/2023 cycle 3 of Adriamycin Cytoxan, Keytruda held 01/14/2023-01/17/2023 admitted in the hospital with neutropenia and feeling of unwell-being. Generalized malaise body aches and pains. 02/01/2023 cycle 4 of Adriamycin and Cytoxan scheduled, we will continue to hold Keytruda. We will dose reduce Adriamycin to 40 milligrams/meter sq and Cytoxan to 500 milligrams/ meter squared. Menstrual history Menarche at age 16 Still having menstrual cycles Has been only once at the age of 32 years Breastfed for 6 months Has been on control pills; also has IUD in place Of note she has had a breast surgery in implant placement around the time of breast- feeding as she developed an infection and underwent segmental mastectomy at [facility] Past medical history is negative No medication intake (I do see escitalopram on the medication list) Past surgical history is positive for segmental mastectomy 9 years ago; tonsils removed at the age of 8, implants placed in 2015 bilaterally; wisdom teeth removal Allergies none Social history is negative for smoking, occasional alcohol intake, she works for the [employer]. She has 1 daughter at the age of 9 years . Family history is positive for colon cancer in her grandm Surgical History Surgical History Unremarkable Medications Medications (copied from oncology chart) acetaminophen (Tylenol Extra Strength) 1,000 mg PO Q6H PRN amoxicillin-pot clavulanate 875-125 mg 1 tab PO BID [id number] 250-250-65 mg (Excedrin Extra Strength) 2 tabs PO Q6H PRN ciprofloxacin HCl 750 mg (3 x 250 mg) PO BID 7 days diphenhydramine-acetaminophen 25-500 mg (Tylenol PM Extra Strength) 2 tabs PO QHS PRN escitalopram oxalate 10 mg PO DAILY ibuprofen 600 mg PO Q8H PRN Lactobacillus acidophilus 1 mg (2 x 0.5 mg (100 million cell )) PO TIDWM 30 days Magic Mouthwash (Lidocaine/ Benadryl/Maalox) 5 mL PO TID- QID mirtazapine 7.5 mg PO DAILY norgestrel-ethinyl estradiol 0 .3-30 mg-mcg (Low-Ogestrel (28 )) 1 tab PO DAILY olanzapine 2.5 mg PO QHS ondansetron 4 mg PO Q4H PRN prochlorperazine maleate ( Compazine) 5 mg PO Q8-12H PRN sennosides-docusate sodium 8.6 -50 mg (Stool Softener- Laxative) 1 tab PO BID Contraindications Contraindications N/A Family History Family History of Lymphedema No Living Situation Current Living Situation Private Home/Apartment (Alone) Patient Difficulties Patient Difficulties Comments Following mastectomy, likely with LN removal and pending radiation therapy, pt will be at risk for lymphedema in her left upper quadrant. Exercise History Does Patient Exercise Regularly Yes Exercise Comments Pt normally goes to the gym, enjoys lifting and cardio. Pt has not been going recently due to her chemo regimen but plans on returning as soon as she is cleared to do so. Pain Pain No Loss of Function/Strength/Mobility Loss Of Function/Strength/Mobility No Previous Treatment Previous Treatment/Current Home Program NA Compression History Does Patient Currently Wear Compression No During Daytime Does Patient Currently Wear Compression No At Night Circumferential Measurements Upper Extremity Left Upper Extremity MCP 19.0 Palm 19.5 Wrist 15.4 10cm 17.4 20cm 22.7 30cm 21.8 40cm 23.6 50cm 27.8 Total 167.2 Right Upper Extremity MCP 19.5 Palm 20.4 Wrist 15.5 10cm 18.4 20cm 23.5 30cm 22.2 40cm 23.8 50cm 28.2 Total 171.5 Assessment Assessment Pt is a very pleasant 42yo female with recent diagnosis of left breast cancer. She has already undergone extensive chemotherapy. Pt presents pre-operatively for initiation of lymphedema surveillance program. Following her 03/01/23 mastectomy with SLN biopsy and reconstruction, pt will be at risk for lymphedema in her LUE / upper quadrant due to LN removal. Pt may need radiation which would add to her risk. Pt will benefit from skilled OT intervention for pt education, monitoring / surveillance in order to provide early detection / intervention to assure best positive outcomes with fewer lymphedema related complications if the need arises. Pt demonstrates good interest and motivation to be an active participant in her care. Pt asked multiple pertinent questions and received satisfactory answers. Pt was given contact info and encouraged to reach out if more questions arise. Pt does have a regular exercise routine and likes to keep active, lives a healthy lifestyle and acknowledges the value in regular medical visits Problem List Problem List Limited Knowledge of Lymphedema Treatment/Condition /Precautions,Limited Knowledge of Skin Care & Infection Precautions,Significant Risk For Infection For Lymphedema Related Complications,Does Not Have a HEP Patient Goals Patient Goals 1. Pt will demonstrate a general understanding of the lymphatic system, s/s of lymphedema, treatment of lymphedema, implications of untreated lymphedema, s/s of infection and the correlation of infection related to lymphedema. 3 months 2. Pt will be compliant with quarterly assessments for lymphedema surveillance in order to obtain early intervention with best outcomes if needed. 12 months Treatment Plan Treatment Plan Evaluation,Edema Control, Manual Therapy,Wound Care/Scar Management,Therapeutic Exercise,Therapeutic Activities,Self-Care/Home Management,Education Other Treatment Plan 4wks p/o then qtly or prn x 12 months Certification Certification I Certify That: Therapy Services Provided, Therapy Plan Established, Therapy Plan Reviewed Recertification Information Recertification Information Initial Certification Date 02/14/23 Recertification Due Date 05/15/23 Reasons to Continue Skilled Therapy Initiated OT today with focus on lymphedema surveillance / early detection with best outcomes. Rehabilitation Potential Good Continued Plan of Care and Interventions Please see above POC Provider Signature Shows Agreement With POC & Medical Necessity Physician Comment/Change Comment or Changes Physician NPI Number #
== END 2023-10-25 23:59 | disposition home or self-care (01) ==
PROVIDERS: PCP Student in an Organized Health Care Education/Training Program; Visit Provider Surgery
DX: C50.912 Malignant neoplasm of unspecified site of left female breast (principal); Z74.09 Other reduced mobility; N64.4 Mastodynia; R29.898 Other symptoms and signs involving the musculoskeletal system; Z98.890 Other specified postprocedural states; Z51.89 Encounter for other specified aftercare
CPT/HCPCS: 97110; 97161; 97165; 97530; 97535

== ENCOUNTER 2023-07-25 15:00 | Outpatient (RCR) | payer BC, SELFPAY ==
[2023-01-31 14:27] LABS: Basophils Absolute Auto 0.05 K/uL (0.00-0.30); Eosinophils Absolute Auto 0.05 K/uL (0.00-0.50); Hematocrit 29.8 % (33.0-51.0); Hemoglobin* 10.1 gm/dL (12.0-16.0); Immature Granulocytes Abs Auto 0.01 K/uL (0.00-0.30); Immature Granulocytes Pct Auto 0.2 %; Lymphocytes Absolute Auto 1.67 K/uL (0.90-2.90); Lymphocytes Percent Auto 33.6 % (20-44); Mean Corpuscular HGB Conc 34 gm/dL (32-36); Mean Corpuscular Hemoglobin 32 pg (26-34); Mean Corpuscular Volume 94 fL (80-100); Monocytes Percent Auto 20.9 % (0.0-11.0); Neutrophils Absolute Auto 2.15 K/uL (1.7-7.0); Neutrophils Percent Auto 43.3 % (42.0-72.0); Platelet Count* 271 K/uL (140-440); RDW Coefficient of Variation % 12.1 % (11.5-15.5); Red Blood Count 3.18 m/uL (4.00-5.20); White Blood Count* 4.97 K/uL (4.50-11.00)
[2023-01-31 14:42] LABS: Albumin* 4.1 g/dL (3.3-5.0); Chloride* 106 mmol/L (96-114); Slide Review Reflex No
[2023-01-31 14:43] LABS: Potassium* 3.8 mmol/L (3.6-5.1); Sodium* 136 mmol/L (135-149)
[2023-01-31 14:45] LABS: Alkaline Phosphatase* 36 U/L (40-150); Anion Gap 6 mEq/L (7-15); Aspartate Amino Transferase* 37 U/L (12-35); Bilirubin Total* 0.4 mg/dL (0.1-1.5); Blood Urea Nitrogen* 15 mg/dL (5-24); Carbon Dioxide* 24 mmol/L (20-32); Creatinine* 0.8 mg/dL (0.5-1.5); Estimated Glomerular Filt Rate 95 ml/min; Total Protein* 6.8 g/dL (6.0-8.3)
[2023-01-31 14:46] LABS: Alanine Aminotransferase* 17 U/L (4-35); Calcium* 8.8 mg/dL (8.4-10.6); Glucose* 74 mg/dL (60-115)
[2023-02-01 09:22] VITALS: BP 79/45; PULSE 81; RESP 16; TEMP 36.3; O2SAT 100
[2023-02-01 10:45] VITALS: BP 89/55; PULSE 90
[2023-02-01 10:58] VITALS: BP 89/54; PULSE 93
[2023-02-01] MEDS: SODIUM CHLORIDE 0.9 % (FLUSH) 10 ML SYRINGE IVF (11:00)
--- NOTE | 2023-02-01 11:00 | PC.NURSE ---
Pt present for cycle 4 of neoadjuvant AC chemo. BP low, see VS flowsheet. Discussed with Dr. Centeno. Will give 1-2 L NS prior to chemo to attempt to get SBP to baseline (high 90's - low 100's). OK to proceed if BP comes up. Also noted elevated TSH. Pembro held for today per Dr. Moreno previously. Dr. Centeno made note, no further action at this time. Dr. Moreno to address with next visit.
[2023-02-01] MEDS: 0.9 % SODIUM CHLORIDE 1000 ml 1,000 ML IV ×2 (11:01→12:01)
[2023-02-01 12:00] VITALS: BP 91/54; PULSE 73
[2023-02-01 12:56] VITALS: BP 102/61; PULSE 90
[2023-02-01] MEDS: dexAMETHasone 20 MG in 0.9 % SODIUM CHLORIDE 100 ml 100 ML 420 MG IVPB (12:57)
[2023-02-01] MEDS: PALONOSETRON 0.25 MG/5 ML inj IV (12:59)
[2023-02-01] MEDS: FOSAPREPITANT 150 MG inj 150 MG in 0.9 % SODIUM CHLORIDE 250 ml 250 ML 510 MG IVPB (13:21)
[2023-02-01] MEDS: 0.9 % SODIUM CHLORIDE 250 ml IV (14:00)
[2023-02-01] MEDS: DOXOrubicin 2 MG/ML inj 75 MG IVP (14:04)
[2023-02-01] MEDS: SODIUM CHLORIDE 0.9% IV (14:19)
[2023-02-01] MEDS: CYCLOPHOSPHAMIDE IV (14:19)
[2023-02-01] MEDS: TUBING SECONDARY IV (14:19)
[2023-02-01] MEDS: HEPARIN 500 UNIT/5 ML SYRINGE IVF (15:29)
[2023-02-03 14:36] LABS: Cortisol, Serum 0.5 ug/dL
[2023-02-23 11:04] LABS: Basophils Percent Auto 0.9 % (0.0-3.0); Eosinophils Percent Auto 0.9 % (0.0-7.0); Hemoglobin* 9.8 gm/dL (12.0-16.0); Lymphocytes Percent Auto 36.5 % (20-44); Mean Corpuscular HGB Conc 35 gm/dL (32-36); Mean Corpuscular Hemoglobin 32 pg (26-34); Mean Corpuscular Volume 92 fL (80-100); Monocytes Percent Auto 20.7 % (0.0-11.0); Platelet Count* 209 K/uL (140-440); Red Blood Count 3.03 m/uL (4.00-5.20); White Blood Count* 4.25 K/uL (4.50-11.00)
[2023-02-23] MEDS: SODIUM CHLORIDE 0.9 % (FLUSH) 10 ML SYRINGE IVF (11:12)
[2023-02-23] MEDS: 0.9 % SODIUM CHLORIDE 1000 ml 1,000 ML IV (11:12)
[2023-02-23] MEDS: HEPARIN 500 UNIT/5 ML SYRINGE IVF (11:13)
[2023-02-23 11:18] LABS: Slide Review Reflex No
[2023-02-23 11:20] LABS: Albumin* 3.8 g/dL (3.3-5.0); Chloride* 101 mmol/L (96-114); Sodium* 131 mmol/L (135-149)
[2023-02-23 11:21] LABS: Potassium* 3.9 mmol/L (3.6-5.1)
[2023-02-23 11:23] LABS: Alanine Aminotransferase* 18 U/L (4-35); Alkaline Phosphatase* 55 U/L (40-150); Anion Gap 7 mEq/L (7-15); Aspartate Amino Transferase* 31 U/L (12-35); Bilirubin Total* 0.2 mg/dL (0.1-1.5); Blood Urea Nitrogen* 9 mg/dL (5-24); Carbon Dioxide* 23 mmol/L (20-32); Creatinine* 0.8 mg/dL (0.5-1.5); Estimated Glomerular Filt Rate 95 ml/min; Glucose* 103 mg/dL (60-115); Total Protein* 6.4 g/dL (6.0-8.3)
[2023-02-23 11:24] LABS: Calcium* 8.5 mg/dL (8.4-10.6)
[2023-04-06 09:26] VITALS: BP 111/71; PULSE 80; RESP 16; TEMP 37; O2SAT 100
[2023-04-06 10:03] LABS: Basophils Absolute Auto 0.02 K/uL (0.00-0.30); Basophils Percent Auto 0.4 % (0.0-3.0); Eosinophils Absolute Auto 0.35 K/uL (0.00-0.50); Eosinophils Percent Auto 6.5 % (0.0-7.0); Hematocrit 30.9 % (33.0-51.0); Hemoglobin* 10.6 gm/dL (12.0-16.0); Lymphocytes Absolute Auto 1.72 K/uL (0.90-2.90); Lymphocytes Percent Auto 31.8 % (20-44); Mean Corpuscular HGB Conc 34 gm/dL (32-36); Mean Corpuscular Hemoglobin 31 pg (26-34); Mean Corpuscular Volume 89 fL (80-100); Monocytes Percent Auto 11.3 % (0.0-11.0); Neutrophils Absolute Auto 2.71 K/uL (1.7-7.0); Platelet Count* 224 K/uL (140-440); RDW Coefficient of Variation % 11.5 % (11.5-15.5); Red Blood Count 3.47 m/uL (4.00-5.20); White Blood Count* 5.41 K/uL (4.50-11.00)
[2023-04-06 10:11] LABS: Slide Review Reflex No
[2023-04-06 10:20] LABS: Albumin* 3.7 g/dL (3.3-5.0); Chloride* 106 mmol/L (96-114); Sodium* 136 mmol/L (135-149)
[2023-04-06 10:21] LABS: Potassium* 3.6 mmol/L (3.6-5.1)
[2023-04-06 10:23] LABS: Alkaline Phosphatase* 74 U/L (40-150); Anion Gap 7 mEq/L (7-15); Aspartate Amino Transferase* 26 U/L (12-35); Bilirubin Total* 0.2 mg/dL (0.1-1.5); Blood Urea Nitrogen* 7 mg/dL (5-24); Carbon Dioxide* 23 mmol/L (20-32); Creatinine* 0.7 mg/dL (0.5-1.5); Estimated Glomerular Filt Rate 112 ml/min; Total Protein* 6.6 g/dL (6.0-8.3)
[2023-04-06 10:24] LABS: Alanine Aminotransferase* 15 U/L (4-35); Calcium* 8.5 mg/dL (8.4-10.6); Glucose* 95 mg/dL (60-115)
[2023-04-06] MEDS: PEMBROLIZUMAB 200 MG, TUBING PRIMARY 1 EACH, In-line 0.2 micron filter set 1 EACH in 0.... 216 MG IVPB (11:51)
--- NOTE | 2023-04-06 11:59 | ONC.NURNOTE ---
states with previous pembro got a headache. pt took her own tylenol pre med. ok to treat with elevated TSH per Maggie Rayo APRN
[2023-04-06] MEDS: SODIUM CHLORIDE 0.9 % (FLUSH) 10 ML SYRINGE IVF (13:51)
[2023-04-06] MEDS: 0.9 % SODIUM CHLORIDE 250 ml IV (13:51)
[2023-04-06] MEDS: HEPARIN 500 UNIT/5 ML SYRINGE IVF (13:51)
--- NOTE | 2023-04-06 16:56 | ONC.NURNOTE ---
states tired and having a hard time sleeping. states had expanders placed at end of Feb. States pain improving . states she takes a pain pill at bedtime. states fine dry skin pinpoint rash resolving. wondered if it was from the hospital sheets. using steroid cream. I did give her some lauren lotion frag. free. teaching re lotions to use. she states was on an antibiotic till her saniya drains came out. She received Keytruda today and temitope well. she premedicated herself with her own tylenol to prevent a headache she got last time she was given Keytruda. very pleasent. vs wnl.
--- NOTE | 2023-04-20 14:54 | ONC.NURNOTE ---
Received call from pt reporting she has been feeling poorly since 2 days after her last Keytruda/~2 weeks. She is having difficulty sleeping, citing restless legs, joint pain and general difficulty sleeping. She is has tried Tylenol PM and Hydroxyzine without improvement. She notes significant fatigue in the daytime, saying that she needed to sit down to rest while making her daughter breakfast. She is having difficulty walking briskly for exercise. Previously post surgery, post chemo she has felt well and had energy. She also notes episodes of nausea with occasional emesis for a few days at a time that keeps returning. She has low appetite. She denies fevers. Pt scheduled to see Dr. Moreno new 04/25; moved appt up to 04/23.
[2023-04-23 14:55] LABS: Basophils Absolute Auto 0.02 K/uL (0.00-0.30); Basophils Percent Auto 0.3 % (0.0-3.0); Eosinophils Absolute Auto 0.42 K/uL (0.00-0.50); Eosinophils Percent Auto 6.3 % (0.0-7.0); Hemoglobin* 11.6 gm/dL (12.0-16.0); Immature Granulocytes Abs Auto 0.05 K/uL (0.00-0.30); Immature Granulocytes Pct Auto 0.8 %; Lymphocytes Absolute Auto 1.96 K/uL (0.90-2.90); Lymphocytes Percent Auto 29.5 % (20-44); Mean Corpuscular HGB Conc 34 gm/dL (32-36); Mean Corpuscular Hemoglobin 30 pg (26-34); Mean Corpuscular Volume 88 fL (80-100); Monocytes Percent Auto 10.2 % (0.0-11.0); Neutrophils Absolute Auto 3.51 K/uL (1.7-7.0); Neutrophils Percent Auto 52.9 % (42.0-72.0); Platelet Count* 206 K/uL (140-440); RDW Coefficient of Variation % 11.4 % (11.5-15.5); Red Blood Count 3.87 m/uL (4.00-5.20); White Blood Count* 6.64 K/uL (4.50-11.00)
[2023-04-23 15:03] LABS: Slide Review Reflex No
[2023-04-23 15:22] LABS: Anion Gap 10 mEq/L (7-15); Blood Urea Nitrogen* 11 mg/dL (5-24); Calcium* 8.6 mg/dL (8.4-10.6); Carbon Dioxide* 22 mmol/L (20-32); Chloride* 102 mmol/L (96-114); Creatinine* 0.7 mg/dL (0.5-1.5); Estimated Glomerular Filt Rate 112 ml/min; Glucose* 79 mg/dL (60-115); Potassium* 3.7 mmol/L (3.6-5.1)
[2023-04-23 15:23] LABS: Albumin* 3.9 g/dL (3.3-5.0); Bilirubin Total* 0.7 mg/dL (0.1-1.5); Total Protein* 6.8 g/dL (6.0-8.3)
--- NOTE | 2023-04-23 16:06 | ONC.NURNOTE ---
LFT results reviewed with Dr. Moreno. Patient informed of recommendation to recheck in one week. Orders entered and appointment scheduled.
[2023-04-23 16:30] LABS: Alanine Aminotransferase* 50 U/L (4-35); Alkaline Phosphatase* 166 U/L (40-150); Aspartate Amino Transferase* 64 U/L (12-35); Sodium* 134 mmol/L (135-149)
[2023-05-01 08:52] LABS: Appearance Urine Slightly Cloudy (Clear); Bilirubin Urine Negative (Negative); Blood Urine 1+ (Negative); Color Urine Dark yellow (Yellow); Glucose Urine Trace (Negative); Ketones Urine Negative (Negative); Leukocyte Esterase Urine 3+ (Negative); Nitrite Urine Positive (Negative); Protein Urine 1+ (Negative)
[2023-05-01 09:01] LABS: Albumin* 4.3 g/dL (3.3-5.0)
[2023-05-01 09:02] LABS: Bacteria Urine Moderate; Squamous Epithelial Cell Urine Moderate (None-Few); WBC Clumps Urine Few
[2023-05-01 09:03] LABS: Bilirubin Direct* 0.1 mg/dL (0.0-0.5); Bilirubin Total* 0.7 mg/dL (0.1-1.5)
[2023-05-01 09:04] LABS: Alanine Aminotransferase* 63 U/L (4-35); Alkaline Phosphatase* 99 U/L (40-150); Aspartate Amino Transferase* 40 U/L (12-35)
[2023-05-16 13:16] LABS: Basophils Absolute Auto 0.03 K/uL (0.00-0.30); Basophils Percent Auto 0.3 % (0.0-3.0); Eosinophils Absolute Auto 0.38 K/uL (0.00-0.50); Eosinophils Percent Auto 4.2 % (0.0-7.0); Hematocrit 35.5 % (33.0-51.0); Hemoglobin* 12.2 gm/dL (12.0-16.0); Immature Granulocytes Abs Auto 0.01 K/uL (0.00-0.30); Immature Granulocytes Pct Auto 0.1 %; Lymphocytes Absolute Auto 2.48 K/uL (0.90-2.90); Lymphocytes Percent Auto 27.6 % (20-44); Mean Corpuscular HGB Conc 34 gm/dL (32-36); Mean Corpuscular Hemoglobin 30 pg (26-34); Mean Corpuscular Volume 87 fL (80-100); Neutrophils Absolute Auto 5.18 K/uL (1.7-7.0); Neutrophils Percent Auto 57.8 % (42.0-72.0); Platelet Count* 193 K/uL (140-440); RDW Coefficient of Variation % 12.4 % (11.5-15.5); Red Blood Count 4.08 m/uL (4.00-5.20); White Blood Count* 8.98 K/uL (4.50-11.00)
[2023-05-16 13:20] LABS: Slide Review Reflex No
[2023-05-16 13:34] LABS: Albumin* 3.8 g/dL (3.3-5.0); Chloride* 103 mmol/L (96-114); Sodium* 133 mmol/L (135-149)
[2023-05-16 13:35] LABS: Potassium* 3.8 mmol/L (3.6-5.1)
[2023-05-16 13:37] LABS: Alanine Aminotransferase* 28 U/L (4-35); Alkaline Phosphatase* 90 U/L (40-150); Anion Gap 7 mEq/L (7-15); Aspartate Amino Transferase* 38 U/L (12-35); Bilirubin Total* 0.7 mg/dL (0.1-1.5); Blood Urea Nitrogen* 16 mg/dL (5-24); Carbon Dioxide* 23 mmol/L (20-32); Creatinine* 0.8 mg/dL (0.5-1.5); Estimated Glomerular Filt Rate 95 ml/min; Glucose* 75 mg/dL (60-115); Total Protein* 6.8 g/dL (6.0-8.3)
[2023-05-16 13:38] LABS: Calcium* 9.1 mg/dL (8.4-10.6)
--- NOTE | 2023-05-17 11:06 | ONC.NURNOTE ---
Orders for PET/CT and supporting documentation faxed to [facility]. They will call patient to schedule.
[2023-05-17 19:28] LABS: Cortisol, Serum 0.3 ug/dL
[2023-05-17 23:58] LABS: Anti-Nuclear Ab(ANA)IgG ELISA None Detected (None Detected)
--- NOTE | 2023-05-21 16:11 | ONC.NURNOTE ---
Addendum entered by Keerthi Craig 05/23/23 13:19: [facility] They do not see the referral on file. Re-faxed to new number, . Original Note: Labs reviewed with Dr. Moreno. Patient informed that her cortisol level is low and we are recommending consultation with endocrinology to further evaluate her adrenal insufficiency. Referral and supporting documentation faxed to [facility], . They will call patient to schedule.
--- NOTE | 2023-05-28 14:51 | ONC.NURNOTE ---
Patient informed that her insurance has denied coverage of a PET/CT. Orders for CT CAP and bone scan entered. Radiology will call patient to schedule. [facility] notified to cancel her 06/06 PET/CT appointment.
--- NOTE | 2023-07-20 13:02 | URNOTE ---
Pembrolizumab ([id number]) has been approved 07/26/2023-03/22/2024. Case #[id number]
== END 2023-07-30 23:59 | disposition home or self-care (01) ==
LOC: CCIC 15:00
PROVIDERS: Clinical Nurse Specialist; PCP Student in an Organized Health Care Education/Training Program; Referring Provider Student in an Organized Health Care Education/Training Program; Visit Provider Internal Medicine Hematology & Oncology
DX: C50.912 Malignant neoplasm of unspecified site of left female breast (principal); Z17.1 Estrogen receptor negative status [ER-]; E27.3 Drug-induced adrenocortical insufficiency; L27.0 Generalized skin eruption due to drugs and medicaments taken internally; K12.31 Oral mucositis (ulcerative) due to antineoplastic therapy; Z90.13 Acquired absence of bilateral breasts and nipples
CPT/HCPCS: 36415; 36591; 80053; 80076; 81003; 81015; 82533; 84443; 85025; 86039; 87086; 87186; 96360; 96376; 96377; 96411; 96413; 99212; 99213; 99214; 99215; G0463; J2506; J9000; J9070; J1100; J1453; J1642; J2469; J7030; J7050; J9271

== ENCOUNTER 2024-04-09 11:30 | Outpatient (RCR) | payer BC, SELFPAY ==
--- NOTE | 2023-08-21 10:34 | ONC.NURNOTE ---
Patient requests that documentation to support port removal be sent to Dr. Lira. He will plan to remove it during her surgery in October. Most recent office note sent to [facility] at her request.
[2023-11-20 16:36] LABS: Free T4 Free Thyroxine* 1.03 ng/dL (0.70-1.85)
[2023-11-23 00:59] LABS: Free T3 2.5 pg/mL (2.5-4.3)
--- NOTE | 2024-03-28 12:39 | ONC.NURNOTE ---
Patient contacted N via email: My next appointment with Dr. Moreno is May 14 but I am starting to have some anxiety about a consistent off feeling (not really painful but present) in my left armpit, which?is where I had the cancer and even the texture of my left armpit feels different than my right. I do believe it could be scar tissue and/or side effects from surgery but I am hoping to see Dr. Moreno earlier than?April and also request a scan to rule out any concern.? Patients follow up moved to 04/[address] Moreno.
== END 2024-05-18 23:59 | disposition home or self-care (01) ==
LOC: CCIC 11:30
PROVIDERS: Clinical Nurse Specialist; PCP Student in an Organized Health Care Education/Training Program; Referring Provider Student in an Organized Health Care Education/Training Program; Visit Provider Internal Medicine Hematology & Oncology
DX: C50.412 Malignant neoplasm of upper-outer quadrant of left female breast (principal); Z17.1 Estrogen receptor negative status [ER-]; Z90.13 Acquired absence of bilateral breasts and nipples; L27.0 Generalized skin eruption due to drugs and medicaments taken internally; K12.31 Oral mucositis (ulcerative) due to antineoplastic therapy; E03.9 Hypothyroidism, unspecified
CPT/HCPCS: 36415; 84439; 84443; 84481; 99213; 99214; 99215; G0463

== ENCOUNTER 2024-04-16 09:00 | Outpatient (CLI) | payer BC, SELFPAY ==
--- NOTE | 2024-04-16 09:15 | CRLHL7_ITS ---
For Patients: As a result of the Cures Act, medical imaging exams and procedure reports are released immediately into your electronic medical record. You may view this report before your referring provider. If you have questions, please contact your health care provider. LEFT BREAST/AXILLA ULTRASOUND INDICATION: 43-year-old female. History of breast cancer. Prior mastectomies. Reconstruction. Palpable nodule LEFT axilla. Follow-up. TECHNIQUE: Directed LEFT axillary ultrasound with this radiologist present. COMPARISON: Correlation is made with a CT of the chest, abdomen AND pelvis June 07, 2023. FINDINGS: There is a normal size normal-appearing lymph node in the LEFT axilla measuring 7.1 x 6.7 x 2.9 mm. No other lesions are identified. These findings were discussed in detail with the patient. Any further work-up or follow-up should be based on clinical grounds. IMPRESSION: Normal-appearing 7 mm LEFT axillary lymph node. BI-RADS Category 2: Benign A lay language report of this examination will be provided to the patient. Dictated by: Raul Cabrera MD @04/16/2024 11:41:13 AM /sp SP/Dictated by: Raul Cabrera MD @ 04/16/2024 11:41:00 AM (Electronically Signed)
== END 2024-04-16 09:01 | disposition home or self-care (01) ==
LOC: US 09:02
PROVIDERS: PCP Student in an Organized Health Care Education/Training Program; Visit Provider Internal Medicine Hematology & Oncology
DX: C50.412 Malignant neoplasm of upper-outer quadrant of left female breast (principal); R59.0 Localized enlarged lymph nodes; Z17.1 Estrogen receptor negative status [ER-]; Z98.890 Other specified postprocedural states
CPT/HCPCS: 76882

== ENCOUNTER 2024-05-15 10:50 | Outpatient (CLI) | payer BC, SELFPAY | END 2024-05-15 10:51 | disposition home or self-care (01) | LOC: CT 10:51 | PROVIDERS: PCP Student in an Organized Health Care Education/Training Program; Visit Provider Internal Medicine Hematology & Oncology | DX: Z98.890 Other specified postprocedural states (principal); C50.412 Malignant neoplasm of upper-outer quadrant of left female breast; Z17.1 Estrogen receptor negative status [ER-] | CPT/HCPCS: 71260; Q9967 ==

== ENCOUNTER 2024-08-15 11:09 | Outpatient (CLI) | payer BC, SELFPAY ==
--- NOTE | 2024-08-15 11:15 | CRLHL7_ITS ---
For Patients: As a result of the Cures Act, medical imaging exams and procedure reports are released immediately into your electronic medical record. You may view this report before your referring provider. If you have questions, please contact your health care provider. Indication: Visible lump Technique: Grayscale ultrasound of the right anterolateral ankle soft tissues performed. Comparison: None Findings: No fluid collection or shadowing mass. No adenopathy. No abscess. Impression: No solid mass or fluid collection. If concern persists would suggest MRI. Dictated by Abel Quick MD @ 08/15/2024 12:55:47 PM (Electronically Signed)
== END 2024-08-15 11:10 | disposition home or self-care (01) ==
LOC: US 11:09
PROVIDERS: PCP Student in an Organized Health Care Education/Training Program; Visit Provider Internal Medicine Hematology & Oncology
DX: R22.31 Localized swelling, mass and lump, right upper limb (principal); C50.412 Malignant neoplasm of upper-outer quadrant of left female breast; Z17.1 Estrogen receptor negative status [ER-]
CPT/HCPCS: 76882

== ENCOUNTER 2024-11-12 08:30 | Outpatient (RCR) | payer BC, SELFPAY | END 2024-11-16 23:59 | disposition home or self-care (01) | LOC: CCIC 08:30 | PROVIDERS: PCP Student in an Organized Health Care Education/Training Program; Referring Provider Student in an Organized Health Care Education/Training Program; Visit Provider Internal Medicine Hematology & Oncology | DX: C50.412 Malignant neoplasm of upper-outer quadrant of left female breast (principal); Z17.1 Estrogen receptor negative status [ER-]; E03.9 Hypothyroidism, unspecified; E27.3 Drug-induced adrenocortical insufficiency; Z90.13 Acquired absence of bilateral breasts and nipples; R25.2 Cramp and spasm | CPT/HCPCS: 99213; 99214; 99215; G0463 ==

== ENCOUNTER 2024-11-25 12:27 | Outpatient (CLI) | payer BC, SELFPAY | END 2024-11-25 12:28 | disposition home or self-care (01) | LOC: NFLDREF 11-26 12:15 | PROVIDERS: PCP Student in an Organized Health Care Education/Training Program; Referring Provider Student in an Organized Health Care Education/Training Program; Visit Provider Physician Assistant | DX: N39.0 Urinary tract infection, site not specified (principal); B96.20 Unspecified Escherichia coli [E. coli] as the cause of diseases classified elsewhere | CPT/HCPCS: 87086 ==